=== PATIENT | female | born 1970 | race Caucasian/White ===

== ENCOUNTER 2020-01-07 18:05 | Emergency (ER) | payer OTHER, SELFPAY ==
--- NOTE | ~2020-01-07 | XR_ITS ---
EXAMINATION: XR chest 2V EXAM DATE: 01/07/2020 18:39 INDICATION: Midsternal chest pain radiating to back. History high blood pressure. TECHNIQUE: Frontal and lateral projections of the chest obtained and reviewed. Comparison is made to prior examination from 07/05/2017. FINDINGS: The lungs are clear. There are no pleural effusions. The cardiomediastinal silhouette is within normal limits. There is no pneumothorax suspected. The bones and soft tissues are unremarkab le. IMPRESSION: No acute cardiopulmonary findings. Reviewed, dictated and finalized at location A.
[2020-01-07 18:08] VITALS: BP 138/80; PULSE 98; RESP 18; TEMP 35.8; O2SAT 96
--- NOTE | 2020-01-07 18:10 | ECG_ITS ---
Measurements Intervals [place] Rate: 99 P: -5 AL: 162 QRS: 15 QRSD: 77 T: 38 QT: 334 QTc: 430 Interpretive Statements SINUS RHYTHM LOW QRS VOLTAGE IN PRECORDIAL LEADS BASELINE WANDER- V1 BORDERLINE ECG Electronically Signed On 01-08-2020 7:35:04 CDT by Heath Hurtado D.O.
[2020-01-07 18:24] LABS: Basophils Absolute Auto 0.1 K/mm3 (0.0-0.1); Basophils Percent Auto 0.7 % (0.2-1.2); Eosinophils Absolute Auto 0.2 K/mm3 (0-0.3); Eosinophils Percent Auto 2.1 % (0-4.4); Hemoglobin 13.7 g/dL (12.0-15.0); Immature Granulocyte Absolute 0.03 K/mm3 (0.00-0.031); Immature Granulocyte Percent A 0.3 % (0-0.5); Lymphocytes Absolute Auto 2.65 K/mm3 (0.9-3.2); Lymphocytes Percent Auto 28.3 % (18.3-44.2); Mean Corpuscular HGB Conc 33.4 g/dl (32-36); Mean Corpuscular Hemoglobin 28.5 pg (26-34); Mean Corpuscular Volume 85.2 fl (80-100); Mean Platelet Volume 11.4 fl (7.4-10.4); Monocytes Absolute Auto 0.9 K/mm3 (0.1-0.6); Monocytes Percent Auto 9.6 % (2.6-8.5); Neutrophils Absolute Auto 5.5 K/mm3 (1.3-6.7); Platelet Count Result 207 k/mm3 (150-375); Red Blood Count 4.81 M/mm3 (4.2-5.4); Red Cell Distribution Width 13.1 % (11.5-14.5); White Blood Count 9.4 K/mm3 (4.5-10.0)
[2020-01-07 18:34] LABS: INR 1.1; Prothrombin Time 13.6 Seconds (11.1-14.7)
[2020-01-07 18:35] LABS: Partial Thromboplastin Time 33.7 SECONDS (22.3-36.8)
[2020-01-07 18:36] LABS: Anion Gap 9 mmol/L (8-16); Blood Urea Nitrogen 24 mg/dL (7-17); Calcium 9.3 mg/dL (8.4-10.2); Carbon Dioxide 24 mmol/L (22-30); Chloride 105 mmol/L (98-107); Estimated CRCL calculation 79 ml/min; Estimated Glomerular Filt Rate 59; Glucose 109 mg/dL (65-105); Potassium 3.6 mmol/L (3.4-5.0); Sodium 138 mmol/L (137-145)
[2020-01-07 18:48] LABS: Troponin I < 0.012 ng/mL (0.000-0.034)
[2020-01-07 18:56] VITALS: BP 115/71; PULSE 90; RESP 20; TEMP 37; O2SAT 98
--- NOTE | 2020-01-07 19:15 | ED.CHESTPAIN ---
HPI - Chest Pain General Chief Complaint: Chest Pain Stated Complaint: cp/dizzy Time Seen by Provider: 01/07/20 19:10 History of Present Illness HPI narrative: Intermittent dizziness throughout the day today. Only happens when she is doing things . She says that it is hard to explain it is like she loses the room . This is often associated with sharp stabbing chest pain, SOB, and tingling in her fingers. No fever, cough, nausea, vomiting, diarrhea. Related Data Home Medications Medication Instructions Recorded Confirmed amlodipine 5 mg tablet 5 mg PO DAILY 05/14/19 Allergies Allergy/AdvReac Type Severity Reaction Status Date / Time aspirin Allergy Unknown Unknown Verified 10/01/19 15:00 beef derived (bovine) Allergy Unknown Unknown Verified 10/01/19 15:00 diclofenac Allergy Unknown Kidneys Verified 10/01/19 15:00 shut down gabapentin Allergy Unknown Unknown Verified 10/01/19 15:00 imipramine Allergy Unknown nightmares Verified 10/01/19 15:00 nut - unspecified Allergy Unknown Unknown Verified 10/01/19 15:00 peanut Allergy Unknown hives Verified 10/01/19 15:00 sweet potato Allergy Unknown Unknown Verified 10/01/19 15:00 tomato Allergy Unknown Unknown Verified 10/01/19 15:00 Review of Systems Review of Systems: All systems reviewed & are unremarkable except as noted in HPI and below Constitutional: Constitutional: Denies chills and Denies fever(s) ENT: Reports dizziness Cardiovascular: Cardiovascular: Reports chest pain and Reports rapid heart rate Respiratory: Respiratory: Reports dyspnea Gastrointestinal: Gastrointestinal: Denies abdominal pain, Denies diarrhea, Denies nausea and Denies vomiting Genitourinary: Genitourinary: Denies hematuria and Denies dysuria Musculoskeletal: Musculoskeletal: Denies back pain Neurologic: Reports dizziness, Denies syncope and Denies weakness Psychiatric: Psychiatric: Reports anxiety Endocrine: Endocrine: Denies polydipsia and Denies polyuria [facility] Past Medical History Medical History (Updated 01/07/20 @ 21:59 by Dario Ricardo MD) HTN (hypertension) Obesity (BMI 35.0-39.9 without comorbidity) Social History Social History Smoking status: Never smoker Alcohol intake: never Exam Const: General: no acute distress and alert Nutritional Appearance: obese Orientation/consciousness: patient oriented x3 HENMT: Head: normal to inspection Ears: TM's normal bilaterally and EAC's normal Eyes: Pupils: Equal, round and reactive pupils present EOM: EOMs intact bilaterally Resp: Effort & Inspection: normal respiratory effort Auscultation: clear to auscultation bilaterally Cardio: Rate: regular rate Rhythm: regular rhythm Heart sounds: no murmurs Skin: General skin exam: normal color Neuro: General: patient oriented x3, moves all extremities, no focal motor deficits and CN's II-XI intact bilaterally Speech: normal speech Extrem: General: normal to inspection and no edema Psych: Appearance: grossly normal Mental Status: mental status grossly normal Course Vital Signs Vital signs: Vital Signs Temperature 35.8 C L 01/07/20 18:08 Pulse Rate 98 01/07/20 18:08 Respiratory Rate 18 01/07/20 18:08 Blood Pressure 138/80 01/07/20 18:08 Pulse Oximetry 96 01/07/20 18:08 Temperature 37.0 C 01/07/20 18:56 Pulse Rate 89 01/07/20 22:14 Respiratory Rate 20 01/07/20 22:14 Blood Pressure 160/93 H 01/07/20 22:14 Pulse Oximetry 96 01/07/20 22:14 MDM - Chest Pain MDM Narrative Medical decision making narrative: Feeling better. Walking with stable gait. Medical Records Data Attestation: I reviewed the patient's medical records. Lab Data Attestation: I reviewed the patient's lab results. Result diagrams: 01/07/20 18:18 01/07/20 18:18 Labs: Lab Results 01/07/20 01/07/20 01/07/20 Range/Units 18:18 18:18 18:18 WBC 9.4 (4
[2020-01-07 20:04] VITALS: BP 124/78; PULSE 78; RESP 18; O2SAT 99
[2020-01-07] MEDS: MECLIZINE HCL 25 MG TABLET PO (20:04)
[2020-01-07] MEDS: SODIUM CHLORIDE 0.9% IV 1,000 ML 999 ML IV CONT (20:04)
--- NOTE | 2020-01-07 21:32 | ECG_ITS ---
Measurements Intervals [place] Rate: 90 P: 13 MD: 148 QRS: 20 QRSD: 85 T: 35 QT: 368 QTc: 450 Interpretive Statements SINUS RHYTHM LOW QRS VOLTAGE IN PRECORDIAL LEADS BASELINE ARTIFACT- I, III, AVL BORDERLINE ECG Electronically Signed On 01-10-2020 14:34:14 CDT by Heath Hurtado D.O.
[2020-01-07 22:06] LABS: Troponin I < 0.012 ng/mL (0.000-0.034)
[2020-01-07 22:14] VITALS: BP 160/93; PULSE 89; RESP 20; O2SAT 96
== END 2020-01-07 22:17 | disposition home or self-care (01) ==
PROVIDERS: Emergency Medicine; Emergency Provider Emergency Medicine; PCP Family Medicine
DX: R07.89 Other chest pain (principal); R42 Dizziness and giddiness; I10 Essential (primary) hypertension; E66.01 Morbid (severe) obesity due to excess calories; Z68.41 Body mass index [BMI] 40.0-44.9, adult
CPT/HCPCS: 36415; 71046; 80048; 84484; 85025; 85610; 85730; 93005; 96360; 99284; A9270; J7030

== ENCOUNTER 2020-04-18 13:35 | Outpatient (CLI) | payer OTHER, SELFPAY ==
[2020-04-18 14:58] LABS: Alanine Aminotransferase 23 U/L (4-35); Albumin Level 3.7 g/dL (3.5-5.1); Alkaline Phosphatase 89 U/L (38-126); Anion Gap 7 mmol/L (8-16); Aspartate Amino Transferase 25 U/L (14-36); Bilirubin,Total 0.5 mg/dL (0.2-1.3); Blood Urea Nitrogen 18 mg/dL (7-17); Calcium 8.9 mg/dL (8.4-10.2); Carbon Dioxide 30 mmol/L (22-30); Chloride 100 mmol/L (98-107); Cholesterol 138 mg/dL (0-200); Estimated Glomerular Filt Rate > 60; Glucose 90 mg/dL (65-105); HDL Direct 45 mg/dL; Potassium 4.2 mmol/L (3.4-5.0); Sodium 137 mmol/L (137-145); Triglycerides 87 mg/dL (<150)
[2020-04-18 15:00] LABS: Hemoglobin A1C 5.1 % (<5.7)
[2020-04-18 15:11] LABS: LDL Cholesterol Direct 71 mg/dL
== END 2020-04-18 13:36 | disposition home or self-care (01) ==
PROVIDERS: PCP Family Medicine; Visit Provider Family Medicine
DX: E78.5 Hyperlipidemia, unspecified (principal)
CPT/HCPCS: 36415; 80053; 80061; 83036

== ENCOUNTER 2021-05-04 18:08 | Emergency (ER) | payer OTHER, SELFPAY ==
[2021-05-04 18:17] VITALS: BP 146/89; PULSE 78; RESP 16; TEMP 36.3; O2SAT 100
--- NOTE | 2021-05-04 18:38 | ED.URI ---
HPI - URI/Sore Throat General Chief Complaint: Upper Respiratory Infection Stated Complaint: cold or sinus Time Seen by Provider: 05/04/21 18:27 Source: patient and RN notes reviewed Mode of arrival: ambulatory Limitations: no limitations History of Present Illness HPI Narrative: Patient presents today complaining of a 2-day history of sore throat, slight cough, rhinorrhea, body aches. She does report some shortness of breath with exertion. History of asthma. Denies fever, nausea, vomiting, diarrhea. She has been taking Tylenol with some relief. She has also been using her rescue inhaler more frequently, which does provide some relief as well. MD elicited complaint: cough, sore throat and rhinorrhea Related Data Home Medications Medication Instructions Recorded Confirmed metoprolol tartrate 25 mg tablet 25 mg PO DAILY 07/21/20 04/13/21 rosuvastatin 40 mg tablet 40 mg PO DAILY 07/21/20 04/13/21 Allergies Allergy/AdvReac Type Severity Reaction Status Date / Time aspirin Allergy Unknown Unknown Verified 05/04/21 18:20 beef derived (bovine) Allergy Unknown Unknown Verified 05/04/21 18:20 diclofenac Allergy Unknown Kidneys Verified 05/04/21 18:20 shut down gabapentin Allergy Unknown Unknown Verified 05/04/21 18:20 imipramine Allergy Unknown nightmares Verified 05/04/21 18:20 nut - unspecified Allergy Unknown Unknown Verified 05/04/21 18:20 peanut Allergy Unknown hives Verified 05/04/21 18:20 sweet potato Allergy Unknown Unknown Verified 05/04/21 18:20 tomato Allergy Unknown Unknown Verified 05/04/21 18:20 Review of Systems Review of Systems: CONSTITUTIONAL: Denies fever, chills, or sweats.+ Body aches EYES: Denies visual changes, redness, or discharge. ENT: Denies congestion, or otalgia.+ Rhinorrhea, sore throat CARDIOVASCULAR: Denies chest pain, palpitations, or edema. RESPIRATORY: + Slight cough, shortness of breath with exertion GASTROINTESTINAL: Denies abdominal pain, nausea, vomiting, or diarrhea. GENITOURINARY: Denies dysuria or hematuria. SKIN: Denies rash, itching, or wounds. MUSCULOSKELETAL: Denies back pain, joint pain, or myalgia. NEUROLOGIC: Denies headache, numbness, tingling, or weakness. PSYCH: Denies depression or anxiety. [facility] Past Medical History Medical History Coronary arteriosclerosis in [place] artery no stent due to asa intolerance, using plavix HTN (hypertension) Mixed hyperlipidemia Narcolepsy without cataplexy Obesity (BMI 35.0-39.9 without comorbidity) Surgical History Surgical History Gastric bypass status for obesity Family History Family History Grandparent Family history of malignant neoplasm of breast Father Family history of arthritis Mother Family history of arthritis Other Cerebrovascular accident Diabetes mellitus Family history of allergic disorder Family history of cardiovascular disease Family history of elevated blood lipids Family history of kidney disease Family history of malignant neoplasm Family history of tuberculosis Hypertension Social History Social History Smoking status: Never smoker Second hand tobacco smoke exposure: No Alcohol intake: never Substance use: never Substance use type: does not use Gender identity (if verbalized by the patient): Female Comments At time of signature, I have reviewed and agree with nursing past medical, surgical, social and family history unless otherwise noted. Please see nursing chart for further information. There is no relevant family history pertinent to the presenting complaint Exam Narrative: GENERAL: Well-appearing, well-nourished, and in no acute distress. HEAD: Normocephalic, atraumatic. EYES: EOMI. No redness or drainage. Conjunctivae normal. ENT: Mucous
== END 2021-05-04 19:07 | disposition home or self-care (01) ==
PROVIDERS: Emergency Provider Nurse Practitioner; PCP Family Medicine
DX: J06.9 Acute upper respiratory infection, unspecified (principal); Z20.822 Contact with and (suspected) exposure to COVID-19; I10 Essential (primary) hypertension; E78.2 Mixed hyperlipidemia; G47.419 Narcolepsy without cataplexy; E66.9 Obesity, unspecified; Z68.37 Body mass index [BMI] 37.0-37.9, adult; Z98.84 Bariatric surgery status; I25.10 Atherosclerotic heart disease of native coronary artery without angina pectoris; J45.909 Unspecified asthma, uncomplicated
CPT/HCPCS: 87426; 99213; C9803; G0463

== ENCOUNTER → 2021-05-16 01:27 | Outpatient (CLI) | payer OTHER, SELFPAY ==
[2021-05-16 21:10] LABS: SARS-CoV-2 RNA PCR Negative
== END ==
PROVIDERS: PCP Family Medicine; Visit Provider Family Medicine
DX: R05.9 Cough, unspecified (principal); Z20.822 Contact with and (suspected) exposure to COVID-19
CPT/HCPCS: C9803; U0003; U0005

== ENCOUNTER 2021-11-09 11:52 | Outpatient (CLI) | payer OTHER, SELFPAY ==
[2021-11-09 12:22] LABS: Hematocrit 42.6 % (37.0-47.0); Hemoglobin 13.7 g/dL (12.0-15.0); Mean Corpuscular HGB Conc 32.2 g/dl (32-36); Mean Corpuscular Hemoglobin 27.9 pg (26-34); Mean Corpuscular Volume 86.8 fl (80-100); Mean Platelet Volume 11.1 fl (7.4-10.4); Platelet Count Result 182 k/mm3 (150-375); Red Blood Count 4.91 M/mm3 (4.2-5.4); Red Cell Distribution Width 13.2 % (11.5-14.5)
[2021-11-09 13:09] LABS: Free T4 Free Thyroxine 0.98 ng/mL (0.78-2.19)
[2021-11-09 13:14] LABS: Alanine Aminotransferase 37 U/L (6-35); Alkaline Phosphatase 91 U/L (38-126); Anion Gap 8 mmol/L (8-16); Aspartate Amino Transferase 41 U/L (14-36); Bilirubin,Total 0.3 mg/dL (0.2-1.3); Blood Urea Nitrogen 13 mg/dL (7-17); Calcium 8.6 mg/dL (8.4-10.2); Carbon Dioxide 26 mmol/L (22-30); Chloride 106 mmol/L (98-107); Cholesterol 137 mg/dL (0-200); Estimated Glomerular Filt Rate > 60; Glucose 102 mg/dL (65-110); HDL Direct 58 mg/dL; Potassium 3.9 mmol/L (3.4-5.0); Sodium 140 mmol/L (137-145); Triglycerides 72 mg/dL (<150)
[2021-11-09 13:25] LABS: LDL Cholesterol Direct 46 mg/dL
[2021-11-09 13:48] LABS: Thyroid Stimulating Hormone 0.134 uIU/mL (0.465-4.680)
[2021-11-14 06:55] LABS: Metanephrine, Free <25 pg/mL (<=57); Normetanephrine, Free 40 pg/mL (<=148); Total, Free (MN + NMN) 40 pg/mL (<=205)
== END 2021-11-09 11:53 | disposition home or self-care (01) ==
LOC: ANHLAB 11:54
PROVIDERS: PCP Family Medicine; Visit Provider Internal Medicine Endocrinology, Diabetes & Metabolism
DX: E78.2 Mixed hyperlipidemia (principal); E16.2 Hypoglycemia, unspecified; Z98.84 Bariatric surgery status
CPT/HCPCS: 36415; 80053; 80061; 83835; 84439; 84443; 85027

== ENCOUNTER 2022-02-25 11:12 | Outpatient (CLI) | payer OTHER, SELFPAY ==
[2022-02-25 18:59] LABS: Basophils Percent Auto 0.4 % (0.2-1.2); Eosinophils Absolute Auto 0.1 K/mm3 (0-0.3); Eosinophils Percent Auto 1.5 % (0-4.4); Hematocrit 42.2 % (37.0-47.0); Hemoglobin 13.1 g/dL (12.0-15.0); Immature Granulocyte Absolute 0.02 K/mm3 (0.00-0.031); Immature Granulocyte Percent A 0.3 % (0-0.5); Lymphocytes Percent Auto 28.1 % (18.3-44.2); Mean Corpuscular Hemoglobin 27.9 pg (26-34); Mean Corpuscular Volume 89.8 fl (80-100); Mean Platelet Volume 12.1 fl (7.4-10.4); Monocytes Absolute Auto 0.6 K/mm3 (0.1-0.6); Monocytes Percent Auto 7.9 % (2.6-8.5); Neutrophils Absolute Auto 4.4 K/mm3 (1.3-6.7); Neutrophils Percent Auto 61.8 % (45.5-73.1); Platelet Count Result 161 k/mm3 (150-375); Red Cell Distribution Width 13.2 % (11.5-14.5); White Blood Count 7.1 K/mm3 (4.5-10.0)
[2022-02-25 19:02] LABS: Hemoglobin A1C 5.4 % (<5.7)
[2022-02-25 19:11] LABS: Alanine Aminotransferase 32 U/L (6-35); Alkaline Phosphatase 97 U/L (38-126); Anion Gap 13 mmol/L (8-16); Aspartate Amino Transferase 32 U/L (14-36); Bilirubin,Total 0.3 mg/dL (0.2-1.3); Blood Urea Nitrogen 11 mg/dL (7-17); Calcium 8.7 mg/dL (8.4-10.2); Carbon Dioxide 24 mmol/L (22-30); Chloride 105 mmol/L (98-107); Cholesterol 129 mg/dL (0-200); Estimated Glomerular Filt Rate > 60; Glucose 101 mg/dL (65-110); HDL Direct 54 mg/dL; Potassium 3.6 mmol/L (3.4-5.0); Sodium 142 mmol/L (137-145); Triglycerides 77 mg/dL (<150)
[2022-02-25 19:22] LABS: LDL Cholesterol Direct 57 mg/dL
[2022-02-25 19:36] LABS: Thyroid Stimulating Hormone Reflex 0.319 uIU/mL (0.465-4.68)
[2022-02-25 20:10] LABS: Free T4 Free Thyroxine Reflex 0.92 ng/dL (0.78-2.19)
[2022-02-25 21:36] LABS: Total Triiodothyronine (T3) 1.29 NG/ML (0.97-1.69)
== END 2022-02-25 11:13 | disposition home or self-care (01) ==
LOC: ANHGOSHLAB 11:15
PROVIDERS: PCP Family Medicine; Visit Provider Family Medicine
DX: Z12.39 Encounter for other screening for malignant neoplasm of breast (principal); E78.5 Hyperlipidemia, unspecified
CPT/HCPCS: 36415; 80053; 80061; 83036; 84439; 84443; 84480; 85025

== ENCOUNTER 2022-05-25 11:11 | Outpatient (CLI) | payer OTHER, SELFPAY ==
[2022-05-25 13:13] LABS: Alanine Aminotransferase 30 U/L (6-35); Albumin Level 3.8 g/dL (3.5-5.1); Alkaline Phosphatase 98 U/L (38-126); Anion Gap 5 mmol/L (8-16); Aspartate Amino Transferase 32 U/L (14-36); Bilirubin,Total 0.4 mg/dL (0.2-1.3); Blood Urea Nitrogen 11 mg/dL (7-17); Calcium 8.6 mg/dL (8.4-10.2); Carbon Dioxide 27 mmol/L (22-30); Chloride 107 mmol/L (98-107); Estimated Glomerular Filt Rate > 60; Glucose 95 mg/dL (65-110); Potassium 3.9 mmol/L (3.4-5.0); Sodium 139 mmol/L (137-145)
[2022-05-25 13:39] LABS: Thyroid Stimulating Hormone 0.875 uIU/mL (0.465-4.680)
[2022-05-25 13:49] LABS: Free T4 Free Thyroxine 0.88 ng/mL (0.78-2.19)
[2022-05-29 21:12] LABS: Triiodothyronine T3 Free 3.2 pg/mL (2.3-4.2)
[2022-05-30 14:23] LABS: Thyroid Stimulating Immunoglob <89 % baseline (<140)
== END 2022-05-25 11:12 | disposition home or self-care (01) ==
LOC: ANHLAB 11:12
PROVIDERS: PCP Family Medicine; Visit Provider Internal Medicine Endocrinology, Diabetes & Metabolism
DX: E16.2 Hypoglycemia, unspecified (principal); R74.01 Elevation of levels of liver transaminase levels; E04.9 Nontoxic goiter, unspecified; Z98.84 Bariatric surgery status
CPT/HCPCS: 36415; 80053; 84439; 84443; 84445; 84481

== ENCOUNTER 2022-08-17 09:41 | Outpatient (CLI) | payer OTHER, SELFPAY ==
[2022-08-17 12:11] LABS: Basophils Percent Auto 0.5 % (0.2-1.2); Eosinophils Absolute Auto 0.1 K/mm3 (0-0.3); Eosinophils Percent Auto 1.5 % (0-4.4); Hematocrit 41.3 % (37.0-47.0); Hemoglobin 13.5 g/dL (12.0-15.0); Immature Granulocyte Absolute 0.02 K/mm3 (0.00-0.031); Immature Granulocyte Percent A 0.3 % (0-0.5); Lymphocytes Percent Auto 29.1 % (18.3-44.2); Mean Corpuscular HGB Conc 32.7 g/dl (32-36); Mean Corpuscular Hemoglobin 27.5 pg (26-34); Mean Corpuscular Volume 84.1 fl (80-100); Mean Platelet Volume 11.8 fl (7.4-10.4); Monocytes Absolute Auto 0.4 K/mm3 (0.1-0.6); Monocytes Percent Auto 7.5 % (2.6-8.5); Neutrophils Absolute Auto 3.6 K/mm3 (1.3-6.7); Neutrophils Percent Auto 61.1 % (45.5-73.1); Platelet Count Result 176 k/mm3 (150-375); Red Blood Count 4.91 M/mm3 (4.2-5.4); Red Cell Distribution Width 13.5 % (11.5-14.5); White Blood Count 5.8 K/mm3 (4.5-10.0)
[2022-08-17 12:16] LABS: Alanine Aminotransferase 26 U/L (6-35); Albumin Level 3.9 g/dL (3.5-5.1); Alkaline Phosphatase 97 U/L (38-126); Anion Gap 3 mmol/L (8-16); Aspartate Amino Transferase 31 U/L (14-36); Bilirubin,Total 0.5 mg/dL (0.2-1.3); Blood Urea Nitrogen 11 mg/dL (7-17); Calcium 8.5 mg/dL (8.4-10.2); Carbon Dioxide 27 mmol/L (22-30); Chloride 106 mmol/L (98-107); Estimated Glomerular Filt Rate > 60; Glucose 93 mg/dL (65-110); Magnesium 2.1 mg/dL (1.6-2.3); Potassium 3.9 mmol/L (3.4-5.0); Sodium 136 mmol/L (137-145)
[2022-08-17 12:23] LABS: Prealbumin 17.1 mg/dL (17.6-36.0)
[2022-08-17 12:50] LABS: Iron 63 ug/dL (37-170)
[2022-08-17 12:59] LABS: Percent Iron Saturation 17 % (20-50)
[2022-08-17 14:23] LABS: Parathyroid Intact 72.7 pg/mL (7.5-53.5)
[2022-08-17 14:28] LABS: Vitamin D 25 Hydroxy 21.3 ng/mL
[2022-08-20 16:23] LABS: Zinc 63 mcg/dL (60-130)
[2022-08-22 11:10] LABS: Alpha-Tocopherol 6.3 mg/L (5.7-19.9); Beta-Gamma Tocopherol 1.5 mg/L (<=4.3); Vitamin A 27 mcg/dL (38-98)
[2022-08-25 23:11] LABS: Vitamin K1 150 pg/mL (130-1500)
[2022-08-27 04:41] LABS: Vitamin B1 9 nmol/L (8-30)
== END 2022-08-17 09:42 | disposition home or self-care (01) ==
PROVIDERS: PCP Family Medicine
DX: E56.9 Vitamin deficiency, unspecified (principal); E61.8 Deficiency of other specified nutrient elements; E55.9 Vitamin D deficiency, unspecified; Z98.84 Bariatric surgery status; E66.9 Obesity, unspecified; Z68.38 Body mass index [BMI] 38.0-38.9, adult; E53.9 Vitamin B deficiency, unspecified; K90.9 Intestinal malabsorption, unspecified
CPT/HCPCS: 36415; 80053; 82306; 82525; 82607; 82728; 82747; 83540; 83550; 83735; 83970; 84134; 84425; 84446; 84590; 84597; 84630; 85025

== ENCOUNTER 2022-08-29 13:01 | Outpatient (CLI) | payer OTHER, SELFPAY ==
--- NOTE | ~2022-08-29 | CT_ITS ---
CT of the Abdomen: Indication: Left renal mass Technique: 2.5 mm axial scans were obtained through the abdomen prior to and following intravenous a dministration of 100 cc of Omnipaque 350. Dose reduction technique was used on this scan by utilizing automated exposure control and iterative reconstruction technique. The dose-length product (DLP) was 1591.25 mGy-cm. COMPARISON: CT dated 08/29/2017 Findings: Scans through the lung bases are unremarkable. The liver, spleen, pancreas, gallbladder, adrenals and kidneys are within normal limits. No evidence of aortic aneurysm. No lymphadenopathy. There is evidence of prior bariatric surgery. Visualized bowel loops are otherwise unremarkable. No a scites. No lymphadenopathy seen. Impression: No left renal mass identified on this exam. No significant abnormality seen. Status post bariatric surgery. Reviewed, dictated and finalized at [facility]. Impression: No left renal mass identified on this exam. No significant abnormality seen. Status post bariatric surgery.
== END 2022-08-29 13:02 ==
LOC: GOSHIMG 13:02
PROVIDERS: PCP Family Medicine; Visit Provider Family Medicine
DX: N28.89 Other specified disorders of kidney and ureter (principal)
CPT/HCPCS: 74170; Q9967

== ENCOUNTER 2023-02-13 16:49 | Emergency (ER) | payer OTHER, SELFPAY ==
[2023-02-13 17:11] VITALS: BP 163/96; PULSE 111; RESP 18; TEMP 37.4; O2SAT 99
--- NOTE | 2023-02-13 17:43 | ED.URI ---
HPI - URI/Sore Throat General Chief Complaint: Upper Respiratory Infection Stated Complaint: cold symptoms Time Seen by Provider: 02/13/23 17:43 Source: patient and RN notes reviewed Mode of arrival: ambulatory Limitations: no limitations History of Present Illness HPI Narrative: 52-year-old female presented for complaint of headache, body aches, sinus pressure/congestion, cough, fever/chills. Onset 4 days. endorses sore throat started at the onset but it resolved within 12 hours. She is taking NyQuil. She denies known sick contacts. Denies sob, wheezing, n/v/d. MD elicited complaint: cough Related Data Home Medications Medication Instructions Recorded Confirmed rosuvastatin 40 mg tablet 40 mg PO DAILY 07/21/20 02/13/23 Allergies Allergy/AdvReac Type Severity Reaction Status Date / Time aspirin Allergy Unknown Unknown Verified 10/11/22 09:31 beef derived (bovine) Allergy Unknown Unknown Verified 10/11/22 09:31 diclofenac Allergy Unknown Kidneys Verified 10/11/22 09:31 shut down gabapentin Allergy Unknown Unknown Verified 10/11/22 09:31 imipramine Allergy Unknown nightmares Verified 10/11/22 09:31 nut - unspecified Allergy Unknown Unknown Verified 10/11/22 09:31 peanut Allergy Unknown hives Verified 10/11/22 09:31 sweet potato Allergy Unknown Unknown Verified 10/11/22 09:31 tomato Allergy Unknown Unknown Verified 10/11/22 09:31 Review of Systems Review of Systems: CONSTITUTIONAL: Endorses malaise, chills, sweats, fever EYES: Denies visual changes, redness, or discharge ENT: Reports rhinorrhea, congestion, denies sinus pain, otalgia, sore throat CARDIOVASCULAR: Denies chest pain, palpitations, edema RESPIRATORY: Reports cough, post nasal drainage. Denies dyspnea GASTROINTESTINAL: Denies abdominal pain, nausea, vomiting, diarrhea SKIN: Denies rash or itching MUSCULOSKELETAL: Endorses myalgia PMFSH Past Medical History Medical History Coronary arteriosclerosis in [place] artery no stent due to asa intolerance, using plavix HTN (hypertension) Mixed hyperlipidemia Narcolepsy without cataplexy Obesity (BMI 35.0-39.9 without comorbidity) Surgical History Surgical History Gastric bypass status for obesity Family History Family History Grandparent Family history of malignant neoplasm of breast Father Family history of arthritis Mother Family history of arthritis Other Cerebrovascular accident Diabetes mellitus Family history of allergic disorder Family history of cardiovascular disease Family history of elevated blood lipids Family history of kidney disease Family history of malignant neoplasm Family history of tuberculosis Hypertension Social History Social History Smoking status: Never smoker Second hand tobacco smoke exposure: No Alcohol intake: never Substance use: never Substance use type: does not use Lack of Transportation: No Lack of Food: Never True Current Housing: I Have Housing Concerned About Future Housing: No Difficulty Paying Gas/Electric Bills: No Difficulty Paying for Meds: No Currently Unemployed: No Education: Associate Degree Difficulty w/ Childcare or Family Care: No Gender identity (if verbalized by the patient): Female Exam Narrative: GENERAL: mildly Ill-appearing, nontoxic no acute distress. HEAD: Normocephalic EYES: PERRLA, conjunctivae clear ENT: Mucous membranes moist. Nasal congestion. TMs pearly crowe with dull light reflex bilaterally; no tragal tenderness. Oropharynx not erythematous, without lesions or exudate, no drooling, no hoarseness, no trismus, uvula midline. No tripod positioning, muffled voice, soft palate or pharyngeal wall bulging NECK: Supple. No lymphadenopathy CHEST: Clear to aus
== END 2023-02-13 18:32 | disposition home or self-care (01) ==
PROVIDERS: Emergency Provider Nurse Practitioner Family; PCP Family Medicine
DX: B34.9 Viral infection, unspecified (principal); Z20.822 Contact with and (suspected) exposure to COVID-19; I25.10 Atherosclerotic heart disease of native coronary artery without angina pectoris; I10 Essential (primary) hypertension; E78.2 Mixed hyperlipidemia; G47.419 Narcolepsy without cataplexy; E66.9 Obesity, unspecified; Z68.41 Body mass index [BMI] 40.0-44.9, adult; Z98.84 Bariatric surgery status
CPT/HCPCS: 87426; 99213; C9803; G0463

== ENCOUNTER 2023-06-13 11:57 | Outpatient (CLI) | payer OTHER, SELFPAY ==
--- NOTE | ~2023-06-13 | XR_ITS ---
Right Knee Technique: AP, lateral, and sunrise views were obtained. Clinical History: Pain Findings: No fracture or dislocation is seen. Osseous alignment is anatomic. Joint spaces are preserv ed without degenerative or erosive change. Soft tissues are unremarkable. No joint effusion is seen. Impression: Unremarkable right knee radiographs. Reviewed, dictated and finalized at location . BILITY REPRESENTATIVE Impression: Unremarkable right knee radiographs.
== END 2023-06-13 11:58 ==
PROVIDERS: PCP Family Medicine; Visit Provider Emergency Medicine
DX: M25.561 Pain in right knee (principal)
CPT/HCPCS: 73562

== ENCOUNTER 2023-08-27 14:15 | Outpatient (CLI) | payer OTHER, SELFPAY ==
[2023-08-27 16:40] LABS: Alanine Aminotransferase 33 U/L (6-35); Albumin Level 4.4 g/dL (3.5-5.1); Alkaline Phosphatase 121 U/L (38-126); Anion Gap 5 mmol/L (4-12); Aspartate Amino Transferase 95 U/L (14-36); Bilirubin,Total 0.6 mg/dL (0.2-1.3); Blood Urea Nitrogen 14 mg/dL (7-17); Calcium 9.1 mg/dL (8.4-10.2); Carbon Dioxide 29 mmol/L (22-30); Chloride 104 mmol/L (98-107); Estimated Glomerular Filt Rate > 60; Glucose 96 mg/dL (65-110); Potassium 3.8 mmol/L (3.4-5.0); Sodium 138 mmol/L (137-145)
[2023-08-27 16:52] LABS: Parathyroid Intact 74.5 pg/mL (7.5-53.5)
[2023-08-27 17:08] LABS: Vitamin D 25 Hydroxy 69.5 ng/mL
== END 2023-08-27 14:16 | disposition home or self-care (01) ==
LOC: ANHWCLAB 14:17
PROVIDERS: PCP Family Medicine; Visit Provider Internal Medicine Endocrinology, Diabetes & Metabolism
DX: R79.89 Other specified abnormal findings of blood chemistry (principal); E16.2 Hypoglycemia, unspecified
CPT/HCPCS: 36415; 80053; 82306; 83970

== ENCOUNTER 2023-10-03 08:31 | Outpatient (CLI) | payer OTHER, SELFPAY ==
--- NOTE | ~2023-10-03 | MM_ITS ---
EXAMINATION: MM screening delia BI w ziggy HISTORY: Screening TECHNIQUE: Craniocaudal and mediolateral oblique 3-D tomosynthesis images were obtained and synthetic 2-D images were generated. CAD analysis was submitted and interpreted. COMPARISON: 08/15/2017 BREAST PARENCHYMAL COMPOSITION: Not dense: There are scattered areas of fibroglandular density. FINDINGS: There is no evidence of suspicious mass, calcification, or architectural distortion to sugg est malignancy in either breast. There has been no suspicious interval change. IMPRESSION: 1. No mammographic evidence of malignancy. 2. Recommend routine screening mammography in one year. BI-RADS Category 1: Negative Reviewed, dictated and finalized at location B.
== END 2023-10-03 08:32 | disposition home or self-care (01) ==
LOC: ANHIMG 08:34
PROVIDERS: PCP Family Medicine; Visit Provider Family Medicine
DX: Z12.31 Encounter for screening mammogram for malignant neoplasm of breast (principal)
CPT/HCPCS: 77063; 77067

== ENCOUNTER 2024-01-09 00:23 | Day surgery (SDC) | payer OTHER, SELFPAY ==
[2023-12-30 14:49] VITALS: BMI 42.3
--- NOTE | 2023-12-30 15:46 | PC.NURSE ---
Spoke with patient regarding medication plavix. Pt. verbalizes understanding that the last dose of plavix is to be taken on 01/04/2024 and the Endoscopist will instruct them when to restart after the procedure.
[2024-01-09 06:46] VITALS: BP 136/87; PULSE 105; RESP 20; TEMP 36; O2SAT 100
[2024-01-09] MEDS: LACTATED RINGERS 1,000 ML 150 ML IV CONT (06:55)
--- NOTE | 2024-01-09 07:54 | PM.HPGS ---
History of Present Illness History of Present Illness Consent: Risks, benefits, and alternatives have been discussed and questions answered. Patient agrees to proceed with procedure. Chief complaint: neoplasm screening Narrative: Cee Villasenor is a 53 year old female here for screening colonoscopy, last one about 6 years ago Review of Systems Review of Systems: All systems reviewed & are unremarkable except as noted in HPI and below PMFSH Past Medical History Medical History Coronary arteriosclerosis in [place] artery no stent due to asa intolerance, using plavix HTN (hypertension) Mixed hyperlipidemia Narcolepsy without cataplexy Obesity (BMI 35.0-39.9 without comorbidity) Surgical History Surgical History Gastric bypass status for obesity Family History Family History Grandparent Family history of malignant neoplasm of breast Father Family history of arthritis Mother Family history of arthritis Other Cerebrovascular accident Diabetes mellitus Family history of allergic disorder Family history of cardiovascular disease Family history of elevated blood lipids Family history of kidney disease Family history of malignant neoplasm Family history of tuberculosis Hypertension Social History Social History Smoking status: Never smoker Second hand tobacco smoke exposure: No Alcohol intake: current Substance use: never Substance use type: does not use Do You Feel Safe in your Home?: Yes Lack of Transportation: No Lack of Food: Never True Current Housing: I Have Housing Concerned About Future Housing: No Difficulty Paying Gas/Electric Bills: No Difficulty Paying for Meds: No Currently Unemployed: No Education: Associate Degree Difficulty w/ Childcare or Family Care: No Living arrangements: with family Gender identity (if verbalized by the patient): Female Spiritual care concerns: No Meds Home Medications and Allergies Home Medications Medication Instructions Recorded Confirmed Type rosuvastatin 40 mg tablet 40 mg PO HS 07/21/20 01/09/24 History clopidogrel 75 mg tablet See Rx Instructions .Route 09/26/21 12/30/23 Rx .COMPLEX #90 tabs glucose 4 gram chewable tablet 4 g PO Q15M PRN hypoglycemia #30 03/28/22 01/09/24 Rx (Dex4 Glucose) tabs albuterol sulfate 90 mcg/actuation 2 puff inhalation Q4-6H PRN 04/12/22 01/09/24 Rx aerosol inhaler (ProAir HFA) shortness of breath or wheezing #8.5 grams estradiol 0.01% (0.1 mg/gram) 1 g vaginal DAILY #42.5 grams 12/16/22 01/09/24 Rx vaginal cream (Estrace) sertraline 100 mg tablet 100 mg PO BID #180 tabs 04/11/23 01/09/24 Rx armodafinil 150 mg tablet 150 mg PO QAM PRN Hypersomnia #30 05/21/23 01/09/24 Rx tabs glucagon 3 mg/actuation nasal See Rx Instructions .Route 08/19/23 01/09/24 Rx spray (Baqsimi) .COMPLEX PRN hypoglycemia #1 ea blood-glucose sensor (Dexcom G7 #10 ea 08/27/23 01/09/24 Rx Sensor device) cholecalciferol (vitamin D3) 1,250 1,250 mcg PO WEEKLY #14 tabs 08/27/23 01/09/24 Rx mcg (50,000 unit) tablet aripiprazole 10 mg tablet See Rx Instructions .Route 11/12/23 01/09/24 Rx .COMPLEX #90 tabs amitriptyline 10 mg tablet 10 mg PO QHS #90 tabs 12/30/23 01/09/24 Rx montelukast 10 mg tablet 10 mg PO HS 12/30/23 01/09/24 History triamcinolone acetonide 0.1 % 1 applic topical TID PRN Rash 12/30/23 01/09/24 History topical cream Allergies Allergy/AdvReac Type Severity Reaction Status Date / Time diclofenac Allergy Severe Kidneys Verified 01/09/24 06:43 shut down gabapentin Allergy Severe KIDNEY Verified 01/09/24 06:43 ISSUES aspirin Allergy Intermediate Fever Verified 01/09/24 06:43 imipramine Allergy Intermediate nightmares Verified
--- NOTE | 2024-01-09 08:00 | WPDANESEPPF ---
Anes - Initial Pre Proc Eval Procedure: Operation Date: 01/09/24 08:00 Proposed Procedures p Screening Colonoscopy - Donald Nguyen MD Date/Time: 01/09/24 08:00 Surgeon: Donald Nguyen MD Pre Op Diagnosis: neoplasm screening Patient Data Age: 53 Gender: F Height: 1.63 m Weight: 102.4 kg Last Vital Signs Temp 96.8 F L 01/09/24 06:46 Pulse 105 H 01/09/24 06:46 Resp 20 01/09/24 06:46 BP 136/87 01/09/24 06:46 Pulse Ox 100 01/09/24 06:46 O2 Del Method Room Air 01/09/24 06:46 Allergies Allergy/AdvReac Type Severity Reaction Status Date / Time diclofenac Allergy Severe Kidneys Verified 01/09/24 06:43 shut down gabapentin Allergy Severe KIDNEY Verified 01/09/24 06:43 ISSUES aspirin Allergy Intermediate Fever Verified 01/09/24 06:43 imipramine Allergy Intermediate nightmares Verified 01/09/24 06:43 tomato Allergy Intermediate Hives Verified 01/09/24 06:43 nut - unspecified AdvReac Intermediate Gastrointestinal Verified 01/09/24 06:43 Upset peanut AdvReac Intermediate Gastrointestinal Verified 01/09/24 06:43 Upset sweet potato AdvReac Intermediate Gastrointestinal Verified 01/09/24 06:43 Upset Home Medications Medication Instructions Recorded Confirmed Type rosuvastatin 40 mg tablet 40 mg PO HS 07/21/20 01/09/24 History clopidogrel 75 mg tablet See Rx Instructions .Route 09/26/21 12/30/23 Rx .COMPLEX #90 tabs glucose 4 gram chewable tablet 4 g PO Q15M PRN hypoglycemia #30 03/28/22 01/09/24 Rx (Dex4 Glucose) tabs albuterol sulfate 90 mcg/actuation 2 puff inhalation Q4-6H PRN 04/12/22 01/09/24 Rx aerosol inhaler (ProAir HFA) shortness of breath or wheezing #8.5 grams estradiol 0.01% (0.1 mg/gram) 1 g vaginal DAILY #42.5 grams 12/16/22 01/09/24 Rx vaginal cream (Estrace) sertraline 100 mg tablet 100 mg PO BID #180 tabs 04/11/23 01/09/24 Rx armodafinil 150 mg tablet 150 mg PO QAM PRN Hypersomnia #30 05/21/23 01/09/24 Rx tabs glucagon 3 mg/actuation nasal See Rx Instructions .Route 08/19/23 01/09/24 Rx spray (Baqsimi) .COMPLEX PRN hypoglycemia #1 ea blood-glucose sensor (Dexcom G7 #10 ea 08/27/23 01/09/24 Rx Sensor device) cholecalciferol (vitamin D3) 1,250 1,250 mcg PO WEEKLY #14 tabs 08/27/23 01/09/24 Rx mcg (50,000 unit) tablet aripiprazole 10 mg tablet See Rx Instructions .Route 11/12/23 01/09/24 Rx .COMPLEX #90 tabs amitriptyline 10 mg tablet 10 mg PO QHS #90 tabs 12/30/23 01/09/24 Rx montelukast 10 mg tablet 10 mg PO HS 12/30/23 01/09/24 History triamcinolone acetonide 0.1 % 1 applic topical TID PRN Rash 12/30/23 01/09/24 History topical cream Patient hx anesthesia problems: none Family hx anesthesia problems: none Results Review: All pre-operative results and documents have been reviewed as part of the pre-operative evaluation. [facility] Past Medical History Medical History Coronary arteriosclerosis in [place] artery no stent due to asa intolerance, using plavix HTN (hypertension) Mixed hyperlipidemia Narcolepsy without cataplexy Obesity (BMI 35.0-39.9 without comorbidity) Surgical History Surgical History Gastric bypass status for obesity Family History Family History Grandparent Family history of malignant neoplasm of breast Father Family history of arthritis Mother Family history of arthritis Other Cerebrovascular accident Diabetes mellitus Family history of allergic disorder Family history of cardiovascular disease Family history of elevated blood lipids Family history of kidney disease Family history of malignant neoplasm Family history of tuberculosis Hypertension Social History Social History Smoking status: Never smoker Second hand toba
[2024-01-09 08:16] VITALS: BP 133/85; PULSE 83; RESP 19; O2SAT 100
[2024-01-09 08:26] VITALS: BP 133/95; PULSE 86; RESP 18; O2SAT 100
[2024-01-09 08:36] VITALS: BP 140/98; PULSE 83; RESP 22; O2SAT 100
== END 2024-01-09 08:50 | disposition home or self-care (01) ==
PROVIDERS: PCP Family Medicine; Visit Provider Internal Medicine Gastroenterology
PROC: 0DJD8ZZ Inspection of Lower Intestinal Tract, Via Natural or Artificial Opening Endoscopic (ICD-10-PCS; CPT 45378; principal; 2024-01-09 08:00)
DX: Z12.11 Encounter for screening for malignant neoplasm of colon (principal); D12.4 Benign neoplasm of descending colon; K57.30 Diverticulosis of large intestine without perforation or abscess without bleeding; K64.8 Other hemorrhoids; Z79.02 Long term (current) use of antithrombotics/antiplatelets; Z79.51 Long term (current) use of inhaled steroids; I25.10 Atherosclerotic heart disease of native coronary artery without angina pectoris; I10 Essential (primary) hypertension; E78.2 Mixed hyperlipidemia; G47.419 Narcolepsy without cataplexy; Z98.84 Bariatric surgery status; E66.9 Obesity, unspecified; Z68.38 Body mass index [BMI] 38.0-38.9, adult
CPT/HCPCS: 45385; 88305; J2704; J7120

== ENCOUNTER 2024-06-08 16:09 | Emergency (ER) | payer OTHER, SELFPAY ==
--- OUTSIDE RECORDS SUMMARY | 2024-06-08 16:26 | XMS_ITS | Referral Summary ---
Author Organization [facility] [address] Address [address] [place] [address] Care Team Providers Care Mounter Smoking Pipe Name Role Phone Bacilio Cardona MD Primary Care Provider [phone] Allergies Active Allergy Reactions Criticality Noted Date Comments Aspirin Anaphylaxis,Nausea only,Swelling High Reaction: Nausea, Swelling, Anaphylaxis, Imipramine Hcl Unknown 08/04/2012 Nut - Unspecified Nausea Only 06/20/2014 Other reaction(s): Skin Reaction Peanut Hives Medium 04/19/2009 Tomato Hives Medium 04/19/2009 Medications albuterol HFA (PROVENTIL HFA) 90 mcg/actuation inhaler inhale 2 puff by inhalation route every 4 - 6 hours as needed 0 Inhaler 0 6 Active SUMAtriptan (IMITREX) 50 mg tablet take 2 tablet by oral route once with fluids as early as possible after the onset of a migraine attack;may repeat after 2 hours if headache returns, not to exceed 200mgin 24hrs 0 0 6 Active Additional Information Patient taking differently:50 mgAs needed, Reported on 10/28/2022 armodafiniL (NUVIGIL) 150 mg tablet PRN Active ARIPiprazole (ABILIFY) 10 mg tablet Take by mouth nightly. 1 8 Active triamcinolone (KENALOG) 0.1 % cream APPLY THIN COAT TO AFFECTED AREA TWICE A DAY 1 8 Active montelukast (SINGULAIR) 10 mg tablet Take 1 tablet (10 mg total) by mouth nightly Active EPINEPHrine (EPIPEN) 0.15 mg/0.3 mL injection syringe Inject 0.3 mL (0.15 mg total) into the muscle as instructed as needed Active sertraline (ZOLOFT) 100 mg tablet Take 2 tablets (200 mg total) by mouth nightly 9 Active cholecalciferol (VITAMIN D-3) 50,000 unit capsule TAKE 1 CAPSULE BY MOUTH WEEKLY 3 Active rosuvastatin (CRESTOR) 40 mg tablet TAKE 1 TABLET BY MOUTH EVERY DAY 90 tablet 3 3 Active blood-glucose sensor (Dexcom G7 Sensor) device Active metoprolol XL (TOPROL-XL) 25 mg extended release tabletIndicatio ns:Tachycardia Take 1 tablet (25 mg total) by mouth daily 90 tablet 3 4 11/14/19 25 Active clopidogreL (PLAVIX) 75 mg tabletIndicatio ns:Coronary artery calcification,A bnormal stress test TAKE 1 TABLET BY MOUTH EVERY DAY 90 tablet 4 Active Active Problems Problem Noted Date Diagnosed Date Hypoglycemia 11/03/2023 Assessment & Plan (11/03/2023 4:13 PM CDT): She is having post gastric bypass hypoglycemia, 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 The likelihood of another etiology, such as insulinoma, is exceedingly low. We discussed that the best strategy to avoid hypoglycemia is to consume small, frequent meals throughout the day with overall low carbohydrate content. She should also include a protein and fat with each meal. She is consuming very high amounts of simple sugar each day, causing glucose spikes and then subsequent hypoglycemia. I have referred her to Gladys Ortiz in nutrition to discuss a formal dietary regimen to avoid hypoglycemia. I would NOT recommend taking acarbose at this time and would certainly NOT recommend restarting Ozempic, as this would further exacerbate her hypoglycemia. H/O: hypertension 10/28/2022 S/P bariatric surgery 10/17/2021 Class 3 obesity 10/17/2021 Weight loss 10/23/2020 Class 2 severe obesity due t o excess calories with serious comorbidity in adult 10/23/2020 H/O syncope 10/23/2020 CHANCE (dyspnea on exertion) 04/18/2018 Coronary artery calcification 04/18/2018 Memory difficulties 10/26/2017 Balance problem 10/26/2017 Diastolic dysfunction without heart failure 09/27 Seizure disorder (CMS/HCC) 07/17/2017 Assessment & Plan (07/17/2017 3:11 PM CDT): Pt says no sz since a teenager. Aspirin allergy 07/17/2017 Assessment & Plan (07/17/2017 3:00 PM CDT): Anaphylaxis Syncope and collapse 07/17/2017 Assessment & Plan (07/17/2017 3:19 PM CDT): As above. Abnormal stress test 07/16/2017 Assessment & Plan (07/17/2017 3:10 PM CDT): The patient has coronary calcifications previously demonstrated, and a change in her stress test which now shows a small mild area of apical ischemia. She certainly likely has some degree of CAD, but overall is asymptomatic except when she has these episodes of flushing and tachycardia, when she may have some chest discomfort. For now I think we should treat her medically, although ultimately we may proceed with cardiac catheterization depending on evaluation of the above. Unfortunately she is ASA-allergic; Plavix is an alternative. I would like to add a statin, but she tells me her neurologist Dr. Frausto DC'd her statin as she wanted to DC any medication which might interfere with the pts cognitive capacity. Elevated norepinephrine level 07/16/2017 Assessment & Plan (07/17/2017 3:30 PM CDT): Elevated dopamine, norepinephrine, and total catecholamine levels. R/O pheochromocytoma Tachycardia 07/16/2017 Assessment & Plan (07/17/2017 3:23 PM CDT): Patient presents with spells as described above of tachycardia, sweating, etc which ultimately result in syncope. Very strange situation. Does not appear to be POTS as this conglomeration of sx can occur in bed.. Pheochromocytoma is high on the differential, particularly since she had elevated norepinephrine and dopamine levels, although these may be elevated because of her tricyclic antidepressant imipramine. Other possibilities: could be menopausal hot flashes, carcinoid (unlikely, no diarrhea), mast cell disease, idiopathic flushing, atypical seizures or other things that cause a hyperadrenergic state. Further eval for possible recurrent sz disorder was recommended by Dr. Frausto, though declined by the patient. Although she likely does have CAD, I think it is unlikely that CAD/angina is the cause of all of these symptoms. Syncope is unlikely to be related to any ventricular arrhythmias, though we should evaluate further with long-term monitoring. If nothing is found by testing, psychogenic causes are also possible. Hypercholesteremia 07/16/2017 Assessment & Plan (07/17/2017 3:11 PM CDT): 07/16/2017 POC lipids: Total cholesterol 226, HDL 47, TG 131, LDL 152, glucose 127 Statin is indicated. See above. 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 Morbid obesity with BMI of 45.0-49.9, adult 06/27 Resolved Problems Problem Noted Date Diagnosed Date Resolved Date Morbid obesity 04/18/2018 04/18/2018 Traumatic encephalopathy 07/17/2017 Social History Tobacco Use Types Packs/Day Years Used Date Smoking Tobacco: Never Smokeless Tobacco: Never Tobacco Cessation:Counseling Given: Not Answered Comments Unknown Sex and Gender Information Value Date Recorded Sex Assigned at Not on file Legal Sex Female 4:09 AM [employer] Gender Identity Not on file Sexual Orientation Not on file Last Filed Vital Signs Vital Sign Reading Time Taken Comments Blood Pressure 135/101 12/12/2023 9:06 AM CDT Pulse 101 11/14/2023 10:05 AM CDT Temperature - - Respiratory Rate - - Oxygen Saturation 96% 11/14/2023 10:05 AM CDT Inhaled Oxygen Concentration - - Weight 108 kg (238 lb) 11/14/2023 10:05 AM CDT Height 165.1 cm (5' 5 ) 11/14/2023 10:05 AM CDT Body Mass Index 39.61 11/14/2023 10:05 AM CDT Plan of Treatment Not on file Insurance [facility] CHOICE PLUS [facility] HMO/PPO Address: [address] [address] [place] [address] [facility] HMO [facility] O [facility] Care Teams Mounter Smoking Pipe Relationship Specialty Start Date End Date Bacilio Cardona MD PCP - General 06/26/17
--- OUTSIDE RECORDS SUMMARY | 2024-06-08 16:26 | XMS_ITS | Patient Health Summary ---
Author Organization [facility] Address [address] [place] [address] Care Team Providers Care Career Development Counselor Name Role Phone Bacilio Cardona MD Primary Care Provider [phone] Note [address] [facility],non-owned Affiliates and Associated Physician Practices is amultiple site organization consisting of ambulatory clinics and hospital sitesin [place], [place], [place] and [place]. This disclosure is being madepursuant to the Care Everywhere program and may not contain all information available regarding this patient. Last updated 18.[facility] Allergies * Aspirin(Anaphylaxis,Nausea and/or Vomiting,Swelling) -High Criticality * Imipramine Hcl(Other,Unknown) * Peanut-Derived(Other) -Medium Criticality * Tomato(Other) -Medium Criticality Medications * Be aware that medications may not be up to date on this document. Alwaysverify current medications with the patient. * albuterol HFA (Proventil; Ventolin; Proair) 108 (90 Base) MCG/ACT inhaler (Started 01/11/2016) Inhale 2 (two) puffs by mouth every 4 hours as needed for Shortness of Breath * ARIPiprazole (ABILIFY) 10 MG tablet(Started 04/14/2019) Take 1 (one) tablet by mouth at bedtime * montelukast (SINGULAIR) 10 MG tablet(Started 05/24/2019) Take 1 (one) tablet by mouth every evening * pantoprazole EC (PROTONIX) 40 MG tablet(Started 09/05/2014) Take 40 mg by mouth at bedtime * sertraline (ZOLOFT) 100 MG tablet(Started 04/14/2019) Take 2 (two) tablets by mouth at bedtime * triamcinolone acetonide (KENALOG) 0.1 % cream(Started 12/05/2017) Apply 1 Dose to affected area 2 times daily as needed (rash) * rosuvastatin (CRESTOR) 40 MG tablet(Started 05/27/2020) Take 1 (one) tablet by mouth at bedtime * SUMAtriptan (IMITREX) 100 MG tablet(Started 07/03/2020) Take 1 (one) tablet by mouth once as needed for Migraine * clopidogrel (plaVIX) 75 MG tablet Take 1 (one) tablet by mouth once daily * amitriptyline (ELAVIL) 10 MG tablet(Started 01/15/2021) * metoprolol succinate XL 24hr (TOPROL XL) 50 MG tablet(Started 03/25/2021) Take 1 tablet by mouth once daily * acarbose (Precose) 25 MG tablet(Started 04/30/2022) 1 TAB 3 X DAILY- TAKE IT WITH 1ST BITE OF YOUR MEAL W/ BREAKFAST, LUNCH AND DINNER * Continuous Blood Gluc Cobol Engineer ([employer] [place] [employer]) JEF(Started 11/02/2021) as directed Active Problems Problem Noted Date Diagnosed Date S/P gastric bypass 07/11/2020 Social History Tobacco Use Types Packs/Day Years Used Date Smoking Tobacco: Never Smokeless Tobacco: Never Alcohol Use Standard Drinks/Week Comments Never 0 (1 standard drink = 0.6 oz pur e alcohol) AUDIT-C Answer Date Recorded Frequency of Alcohol Consumption Never 06/18/2019 Average Number of Drinks Not on file 020 Frequency of Binge Drinking Not on file 05/30 Sex and Gender Information Value Date Recorded Sex Assigned at Female 03/13/2021 8:47 AM ELECTRICAL AND RADIO AIRCRAFT MECHANIC Gender Identity Female 03/13/2021 8:47 AM ELECTRICAL AND RADIO AIRCRAFT MECHANIC Sexual Orientation Not on file Last Filed Vital Signs Vital Sign Reading Time Taken Comments Blood Pressure 140/90 07/26/2022 11:48 AM CDT Pulse 104 07/26/2022 11:48 AM CDT Temperature 36.1 C (97 F) 07/26/2022 11:48 AM CDT Respiratory Rate 20 07/23/2021 12:2 4 PM CDT Oxygen Saturation 99% 07/26/2022 11: 48 AM CDT Inhaled Oxygen Concentration - - Weight 113.1 kg (249 lb 6.4 oz) 023 11:48 AM CDT Height 165.1 cm (5' 5 ) 07/26/2022 11:4 8 AM CDT Body Mass Index 41.5 07/26/2022 11:48 AM CDT Procedures * FL UGI W SM BOWEL FOLLOW THRU(Performed 09/06/2022) Performed for Bariatric surgery status, Intestinal malabsorption, unspecified type (HCC), Diarrhea,unspecified type, Reactive hypoglycemia * LAB(Performed 08/17/2022) * LAB(Performed 08/17/2022) * US ABDOMEN LIMITED(Performed 08/16/2022) Performed for Bariatric surgery status, Intestinal malabsorption, unspecified type (HCC), Diarrhea,unspecified type, Reactive hypoglycemia * PTH INTACT(Performed 04/06/2021) Performed for H/O gastric bypass, Dietary counseling and surveillance, Other specified intestinal malabsorption (HCC), Vitamin deficiency, History of morbid obesity * VITAMIN A(Performed 04/06/2021) Performed for H/O gastric bypass, Dietary counseling and surveillance, Other specified intestinal malabsorption (HCC), Vitamin deficiency, History of morbid obesity * VITAMIN B1(Performed 04/06/2021) Performed for H/O gastric bypass, Dietary counseling and surveillance, Other specified intestinal malabsorption (HCC), Vitamin deficiency, History of morbid obesity * VITAMIN B12(Performed 04/06/2021) Performed for H/O gastric bypass, Dietary counseling and surveillance, Other specified intestinal malabsorption (HCC), Vitamin deficiency, History of morbid obesity * VITAMIN E(Performed 04/06/2021) Performed for H/O gastric bypass, Dietary counseling and surveillance, Other specified intestinal malabsorption (HCC), Vitamin deficiency, History of morbid obesity * VITAMIN K1(Performed 04/06/2021) Performed for H/O gastric bypass, Dietary counseling and surveillance, Other specified intestinal malabsorption (HCC), Vitamin deficiency, History of morbid obesity * ZINC BLOOD(Performed 04/06/2021) Performed for H/O gastric bypass, Dietary counseling and surveillance, Other specified intestinal malabsorption (HCC), Vitamin deficiency, History of morbid obesity * PREALBUMIN(Performed 04/06/2021) Performed for H/O gastric bypass, Dietary counseling and surveillance, Other specified intestinal malabsorption (HCC), Vitamin deficiency, History of morbid obesity * MAGNESIUM BLOOD(Performed 04/06/2021) Performed for H/O gastric bypass, Dietary counseling and surveillance, Other specified intestinal malabsorption (HCC), Vitamin deficiency, History of morbid obesity * FERRITIN(Performed 04/06/2021) Performed for H/O gastric bypass, Dietary counseling and surveillance, Other specified intestinal malabsorption (HCC), Vitamin deficiency, History of morbid obesity * COPPER BLOOD(Performed 04/06/2021) Performed for H/O gastric bypass, Dietary counseling and surveillance, Other specified intestinal malabsorption (HCC), Vitamin deficiency, History of morbid obesity * COMPREHENSIVE METABOLIC PANEL(Performed 04/06/2021) Performed for H/O gastric bypass, Dietary counseling and surveillance, Other specified intestinal malabsorption (HCC), Vitamin deficiency, History of morbid obesity * CBC W/O DIFFERENTIAL(Performed 04/06/2021) Performed for H/O gastric bypass, Dietary counseling and surveillance, Other specified intestinal malabsorption (HCC), Vitamin deficiency, History of morbid obesity * VITAMIN D 25-HYDROXY(Performed 04/06/2021) Performed for H/O gastric bypass, Dietary counseling and surveillance, Other specified intestinal malabsorption (HCC), Vitamin deficiency, History of morbid obesity * IRON + TIBC PANEL(Performed 04/06/2021) Performed for H/O gastric bypass, Dietary counseling and surveillance, Other specified intestinal malabsorption (HCC), Vitamin deficiency, History of morbid obesity * FOLATE(Performed 04/06/2021) Performed for H/O gastric bypass, Dietary counseling and surveillance, Other specified intestinal malabsorption (HCC), Vitamin deficiency, History of morbid obesity * FL UGI SERIES(Performed 09/18/2020) Performed for S/P bariatric surgery, Intractable vomiting with nausea, unspecified vomiting type * HCG URINE QUAL POCT NOTIFICATION(Performed 08/18/2020) Performed for S/P gastric bypass * AL ED EGD FLEX TRANSORAL DX(Performed 08/18/2020) * HCG URINE QUALITATIVE - POCT (IP) INTERFACED(Performed 08/18/2020) * CARDIAC RHYTHM STRIP ORDER(Performed 07/14/2020) * GLUCOSE - POINT OF CARE(Performed 07/13/2020) * CBC W AUTO DIFFERENTIAL(Performed 07/13/2020) * BASIC METABOLIC PANEL (CALCIUM TOTAL)(Performed 07/13/2020) * GLUCOSE - POINT OF CARE(Performed 07/12/2020) * GLUCOSE - POINT OF CARE(Performed 07/12/2020) * GLUCOSE - POINT OF CARE(Performed 07/12/2020) * CBC W/O DIFFERENTIAL(Performed 07/12/2020) * FL UGI SERIES(Performed 07/12/2020) Performed for S/P gastric bypass * BASIC METABOLIC PANEL (CALCIUM TOTAL)(Performed 07/12/2020) * TROPONIN I(Performed 07/12/2020) * B-TYPE NATRIURETIC PEPTIDE(Performed 07/12/2020) * VITAMIN D 25-HYDROXY(Performed 07/12/2020) * CBC W AUTO DIFFERENTIAL(Performed 07/12/2020) * BASIC METABOLIC PANEL (CALCIUM TOTAL)(Performed 07/12/2020) * TROPONIN I(Performed 07/11/2020) * GLUCOSE - POINT OF CARE(Performed 07/11/2020) * GLUCOSE - POINT OF CARE(Performed 07/11/2020) * ENDOTRACHEAL TUBE NOTE(Performed 07/11/2020) * LAPAROSCOPIC REPAIR PARAESOPHAGEAL/HIATAL HERNIA(Performed 07/11/2020) * LAPAROSCOPIC GASTRIC BYPASS(Performed 07/11/2020) * GLUCOSE - POINT OF CARE(Performed 07/11/2020) * POTASSIUM BLOOD(Performed 07/11/2020) * HCG URINE QUALITATIVE(Performed 07/11/2020) Performed for Preop examination * SARS-COV-2 (COVID-19) IN HOUSE(Performed 07/08/2020) Performed for Preop examination * SARS-COV2 (COVID-19) PANEL (STL)(Performed 07/08/2020) Performed for Preop examination * VITAMIN B12(Performed 06/16/2020) Performed for Preop examination * VITAMIN B1(Performed 06/16/2020) Performed for Preop examination * COMPREHENSIVE METABOLIC PANEL(Performed 06/16/2020) Performed for Preop examination * CBC W AUTO DIFFERENTIAL(Performed 06/16/2020) Performed for Preop examination * HCG URINE QUAL POCT NOTIFICATION(Performed 01/17/2020) Performed for Pre-op exam * HELICOBACTER PYLORI UREASE (STL)(Performed 01/17/2020) Performed for Diagnosis unknown * AL ED EGD FLEX TRANSORAL DX(Performed 01/17/2020) * HCG URINE QUALITATIVE - POCT (IP) INTERFACED(Performed 01/17/2020) * EKG 12-LEAD(Performed 12/30/2019) * COMPREHENSIVE METABOLIC PANEL(Performed 12/11/2019) Performed for Preop testing * FL UGI W AIR CONTRAST(Performed 12/03/2019) Performed for Gastroesophageal reflux disease without esophagitis, Morbid obesity (HCC), BMI 45.0-49.9, adult (HCC) * GROSS + MICRO EXAM(Performed 10/02/1996) Results * FL UGI W SM BOWEL FOLLOW THRU (09/06/2022 10:03 AM CDT) Anatomical Region Laterality Modality Abdomen Radiographic Pili ging 09/06/2022 11:2 9 AM CDT Impressions 09/06/2022 11:34 AM CDT IMPRESSION: 1. Status post Parag-en-Y gastric bypass surgery. No appreciable hiatal hernia, reflux or gastric outlet obstruction. 2. Normal-appearing small bowel and transit time to the colon within one hour. > Interpreting Provider: Cesar Morrell DO on 09/06/2022 11:34 AM Narrative 09/06/2022 11:34 AM CDT PROCEDURE: FL UGI W SM BOWEL FOLLOW THRU DATE/TIME OF EXAM: 09/06/2022 10:10 AM CLINICAL INFORMATION: History of gastric bypass surgery 2 years ago with vomiting and loose stools. Postprandial abdominal pain. COMPARISON: Upper GI series performed 09/18/2020. FINDINGS: Esophagus distends normally. No fixed narrowing, mucosal irregularity or annular constricting mass. No generalized esophageal dilation or focal esophageal diverticulum. Normal GE junction. No significant hiatal hernia or gastroesophageal reflux was identified. Unremarkable appearance of the gastric pouch. No contrast extravasation. Normal emptying through the gastrojejunostomy into the Parag loop. In the OBRIEN position, there was normal primary and secondary peristalsis of the esophagus without tertiary contractions or esophageal spasm. Minor proximal escape within the esophagus. Unremarkable small bowel. No dilated bowel loops are fold thickening. Probable jejunojejunostomy within the right abdomen. Contrast reaches the colon at 1 hour. No delayed transit time. Terminal ileum is unremarkable. FLUOROSCOPY DOSE: 20.9 mGy Reference air kerma (ka,r). 430 images were obtained in total including video format. 1 minute 47 seconds of fluoroscopy time was utilized. Procedure Note Cesar Morrell DO - 09/06/2022 PROCEDURE: FL UGI W SM BOWEL FOLLOW THRU DATE/TIME OF EXAM: 09/06/2022 10:10 AM CLINICAL INFORMATION: History of gastric bypass surgery 2 years ago with vomiting and loose stools. Postprandial abdominal pain. COMPARISON: Upper GI series performed 09/18/2020. FINDINGS: Esophagus distends normally. No fixed narrowing, mucosal irregularity or annular constricting mass. No generalized esophageal dilation or focal esophageal diverticulum. Normal GE junction. No significant hiatalhernia or gastroesophageal reflux was identified. Unremarkable appearance of the gastric pouch. No contrast extravasation. Normal emptying through the gastrojejunostomy into the Parag loop. In the OBRIEN position, there was normal primary and secondary peristalsisof the esophagus without tertiary contractions or esophageal spasm. Minor proximal escape within the esophagus. Unremarkable small bowel. No dilated bowel loops are fold thickening. Probable jejunojejunostomy within the right abdomen. Contrast reaches the colon at 1 hour. No delayed transit time. Terminal ileum is unremarkable. FLUOROSCOPY DOSE: 20.9 mGy Reference air kerma (ka,r). 430 images were obtained in total including video format. 1 minute 47 seconds of fluoroscopy time was utilized. IMPRESSION: 1. Status post Parag-en-Y gastric bypass surgery. No appreciable hiatal hernia, reflux or gastric outlet obstruction. 2. Normal-appearing small bowel and transit time to the colon within one hour. > Interpreting Provider: Cesar Morrell DO on 09/06/2022 11:34 AM Gladys Knight SUPERVISOR DOCK-PRECISION THREAD GRINDER OPERATOR FLUOROSCO PY ORDERABLES * LAB (08/17/2022) Only the most recent of2 resultswithin the time period is included. Gladys Knight SUPERVISOR DOCK-PRECISION THREAD GRINDER OPERATOR SCANNING ONLY * US ABDOMEN LIMITED (08/16/2022 9:09 AM CDT) Anatomical Region Laterality Modality Abdomen Ultrasound 08/16/2022 9:45 AM CDT Impressions 08/16/2022 11:48 AM CDT IMPRESSION: 1. Focal, well-circumscribed, hypoechoic lesion in the anterior right renal cortex measuring 3.4 x 2.9 x 2.1 cm. Recommend further evaluation with CT abdomen and pelvis with contrast. Edited by Keren Short on 08/16/2022 9:55 AM > Interpreting Provider: Pia Peterson MD on 08/16/2022 11:48 AM Narrative 08/16/2022 11:48 AM CDT PROCEDURE: US ABDOMEN LIMITED DATE/TIME OF EXAM: 08/16/2022 9:09 AM CLINICAL INFORMATION: None relevant/not provided if blank. INDICATION: Z98.84: Bariatric surgery status K90.9: Intestinal malabsorption, unspecified R19.7: Diarrhea, unspecified E16.1: Other hypoglycemia COMPARISON: None. TECHNIQUE: Real-time ultrasound of the upper abdomen with DICOM image capture performed by ultrasound technologist sonographer. FINDINGS: The hepatic echotexture is homogeneous without evidence of a focal mass. The liver is normal in size and contour. There is no intrahepatic ductal dilatation. The pancreas is partially visible and portions of the body and head appear normal. The gallbladder appears normal without evidence of gallstones, gallbladder wall thickening or pericholecystic fluid. The common bile duct is normal in caliber. There is no evidence of ascites or fluid in Olivarez's pouch. The right kidney measures 11.0 cm. No right-sided hydronephrosis seen. There is a focal, well-circumscribed, hypoechoic lesion in the anterior right renal cortex with central increased echogenicity, measuring 3.4 x 2.9 x 2.1 cm. There is an anechoic right renal lower pole cyst, measuring 1.3 x 0.9 x 1.2 cm. Procedure Note Pia Peterson MD - 08/16/2022 PROCEDURE: US ABDOMEN LIMITED DATE/TIME OF EXAM: 08/16/2022 9:09 AM CLINICAL INFORMATION: None relevant/not provided if blank. INDICATION: Z98.84: Bariatric surgery status K90.9: Intestinal malabsorption, unspecified R19.7: Diarrhea, unspecified E16.1: Other hypoglycemia COMPARISON: None. TECHNIQUE: Real-time ultrasound of the upper abdomen with DICOM image capture performed by ultrasound technologist sonographer. FINDINGS: The hepatic echotexture is homogeneous without evidence of a focal mass. The liver is normal in size and contour. There is no intrahepatic ductal dilatation. The pancreas is partially visible and portions of the bodyand head appear normal. The gallbladder appears normal without evidence of gallstones,gallbladder wall thickening or pericholecystic fluid. The common bile duct is normalin caliber. There is no evidence of ascites or fluid in Olivarez's pouch. The right kidney measures 11.0 cm. No right-sided hydronephrosis seen. There is a focal, well-circumscribed, hypoechoic lesion in the anterior right renal cortex with central increased echogenicity, measuring 3.4 x2.9 x 2.1 cm. There is an anechoic right renal lower pole cyst, measuring 1.3x 0.9 x 1.2 cm. IMPRESSION: 1. Focal, well-circumscribed, hypoechoic lesion in the anterior rightrenal cortex measuring 3.4 x 2.9 x 2.1 cm. Recommend further evaluation withCT abdomen and pelvis with contrast. Edited by Keren Short on 08/16/2022 9:55 AM > Interpreting Provider: Pia Peterson MD on 08/16/2022 11:48 AM Gladys Knight SUPERVISOR [facility] US ORDERA BLES * (ABNORMAL) VITAMIN K1 (04/06/2021 9:53 AM ELECTRICAL AND RADIO AIRCRAFT MECHANIC) [facility] Vitamin K1 0.07(L) 0.10 - 2.20 ng/mL [facility] INSURANCE BILL Blood BLOOD SPECIMEN / Unknown 04/06/2021 9:53 AM ELECTRICAL AND [employer] AIRCRAFT MECHANIC 04/06/2021 Narrative [facility] INSURANCE BILL - 04/13/2021 11:10 AM ELECTRICAL AND RADIO AIRCRAFT MECHANIC Test(s) 529182-Ohppxpl K1 was developed and its performance characteristics determined by [employer]. It has not been cleared or approved by the Food and Drug Administration. Resulting Agency Comment Lab Testing performed at: [address] [id number] Olivia Doyle SUPERVISOR [facility] LAB - CHEMISTRY O RDERABLES [facility] INSURANCE BILL [address] [place] [address] * (ABNORMAL) ZINC BLOOD (04/06/2021 9:53 AM ELECTRICAL AND RADIO AIRCRAFT MECHANIC) Zinc, Plasma or Serum 43(L) 44 - 115 ug/dL [facility] Comment:Detection Limit = 5 Blood BLOOD SPECIMEN / Unknown 04/06/2021 9:53 AM ELECTRICAL AND RADIO AIRCRAFT MECHANIC 04/06/2021 Narrative [facility] - 04/10/2021 7:09 AM ELECTRICAL AND RADIO AIRCRAFT MECHANIC Test(s) 887139-Hpylsq, Serum or Plasma; 434751-Xflx, Plasma or Serum was developed and its performance characteristics determined by [facility]. It has not been cleared or approved by the Food and Drug Administration. Resulting Agency Comment Lab Testing performed at: [address] [phone] Olivia Doyle APRN-PRECISION THREAD GRINDER OPERATOR LAB - CHEMISTRY O RDERABLES Performing Organization Address [facility] de Phone Number [facility] INSURANCE BILL [address] [place] [address] * VITAMIN A (04/06/2021 9:53 AM ELECTRICAL AND RADIO AIRCRAFT MECHANIC) Vitamin A 20.7 20.1 - 62.0 ug/dL [facility] INSURANCE BILL Comment: Reference intervals for vitamin A determined from [facility]. Individuals with vitamin A less than 20 ug/dL are considered vitamin A deficient and those with serum concentrations less than 10 ug/dL are considered severely deficient. . This test was developed and its performance characteristics determined by [employer]. It has not been cleared or approved by the Food and Drug Administration. Blood BLOOD SPECIMEN / Unknown 04/06/2021 9:53 AM ELECTRICAL AND RADIO AIRCRAFT MECHANIC 04/06/2021 Narrative [facility] - 04/11/2021 3:08 PM ELECTRICAL AND RADIO AIRCRAFT MECHANIC Test(s) 767696-Ssredjy E(Alpha Tocopherol); 078859- Vitamin E(Gamma Tocopherol) was developed and its performance characteristics determined by [employer]. It has not been cleared or approved by the Food and Drug Administration. Resulting Agency Comment Lab Testing performed at: [address] [id number] Olivia Doyle APRN-PRECISION THREAD GRINDER OPERATOR LAB - CHEMISTRY O RDERABLES Performing Organization Address [facility] Co de Phone Number [facility] [address] [place] [address] * (ABNORMAL) VITAMIN E (04/06/2021 9:53 AM ELECTRICAL AND RADIO AIRCRAFT MECHANIC) Vitamin E Alpha Tocopherol 5.7(L) 7.0 - 25.1 mg/L [facility] Vitamin E Gamma Tocopherol 1.6 0.5 - 5.5 mg/L [facility] Comment: Reference intervals for alpha and gamma-tocopherol determined from National Health and Nutrition Examination Survey, 9370-3129. Individuals with alpha-tocopherol levels less than 5.0 mg/L are considered vitamin E deficient. Blood BLOOD SPECIMEN / Unknown 04/06/2021 9:53 AM ELECTRICAL AND RADIO AIRCRAFT MECHANIC 04/06/2021 Narrative [facility] - 04/11/2021 3:08 PM ELECTRICAL AND RADIO AIRCRAFT MECHANIC Test(s) 700520-Yxjnaks E(Alpha Tocopherol); 107485- Vitamin E(Gamma Tocopherol) was developed and its performance characteristics determined by [employer]. It has not been cleared or approved by the Food and Drug Administration. Resulting Agency Comment Lab Testing performed at: [address] [phone] Olivia Doyle APRN-PRECISION THREAD GRINDER OPERATOR LAB - CHEMISTRY O RDERABLES [facility] INSURANCE BILL [address] [place] [address] * VITAMIN B1 (04/06/2021 9:53 AM ELECTRICAL AND RADIO AIRCRAFT MECHANIC) Only the most recent of2 resultswithin the time period is included. Vitamin B1 Whole Blood 119.7 66.5 - 200.0 nmol/L [facility] INSURANCE BILL Blood BLOOD SPECIMEN / Unknown 04/06/2021 9:53 AM ELECTRICAL AND RADIO AIRCRAFT MECHANIC 04/06/2021 Narrative [facility] INSURANCE BILL - 04/11/2021 11:06 PM ELECTRICAL AND RADIO AIRCRAFT MECHANIC Test(s) 276911-Egj. B1, Whole Blood was developed and its performance characteristics determined by [employer]. It has not been cleared or approved by the Food and Drug Administration. Resulting Agency Comment Lab Testing performed at: [address] [id number] Olivia Jenniffer Doyle [facility] - CHEMISTRY O RDERABLES [facility] INS[facility] [address] [place] [address] * PTH INTACT (04/06/2021 9:53 AM ELECTRICAL AND RADIO AIRCRAFT MECHANIC) Pathologist [facility] PTH Intact 25 15 - 65 pg/mL [facility] INSURANCE BILL Blood BLOOD SPECIMEN / Unknown 04/06/2021 9:53 AM ELECTRICAL AND RADIO AIRCRAFT MECHANIC 04/06/2021 Narrative Resulting Agency Comment Lab Testing performed at: [facility] [address] [facility] [id number] Olivia Abad Vivek SUPERVISOR [facility] LAB - CHEMISTRY O RDERABLES Performing Organization Address [facility] Co de Phone Number [facility] [address] [place] [address] * (ABNORMAL) COPPER BLOOD (04/06/2021 9:53 AM ELECTRICAL AND RADIO AIRCRAFT MECHANIC) Pathologist [facility] Copper 58(L) 80 - 158 ug/dL [facility] INS[facility] Comment:Detection Limit = 5 Blood BLOOD SPECIMEN / Unknown 04/06/2021 9:53 AM ELECTRICAL AND RADIO AIRCRAFT MECHANIC 04/06/2021 Narrative [facility] INSURANCE BILL - 04/10/2021 7:09 AM ELECTRICAL AND RADIO AIRCRAFT MECHANIC Test(s) 129035-Saodqb, Serum or Plasma; 214094-Nyzb, Plasma or Serum was developed and its performance characteristics determined by [employer]. It has not been cleared or approved by the Food and Drug Administration. Resulting Agency Comment Lab Testing performed at: [facility] [id number] Olivia Jenniffer Doyle [facility] LAB - CHEMISTRY O RDERABLES Performing Organization Address City/[facility] Co de Phone Number [facility] [address] [place] [address] * (ABNORMAL) CBC W/O DIFFERENTIAL (04/06/2021 9:53 AM ELECTRICAL AND [employer]IO [employer] MECHANIC) Only the most recent of2 resultswithin the time period is included. Pathologist [facility] WBC 5.2 3.4 - 10.8 x10E3/uL [facility] INSURANCE BILL RBC 4.55 3.77 - 5.28 x10E6/uL [facility] INSURANCE BILL Hemoglobin 12.6 11.1 - 15.9 g/dL [facility] INSURANCE BILL Hematocrit 40.2 34.0 - 46.6 % [facility] INSURANCE BILL MCV 88 79 - 97 fL [facility] INSURANCE BILL MCH 27.7 26.6 - 33.0 pg [facility] INSURANCE BILL MCHC 31.3(L) 31.5 - 35.7 g/dL [facility] INSURANCE BILL RDW 13.2 11.7 - 15.4 % [facility] INSURANCE BILL Platelet Count 153 150 - 450 x10E3/uL [facility] INSURANCE BILL nRBC NOT NEEDED [facility] INSURANCE BILL Comment:Ancillary determined the test is not needed. Blood BLOOD SPECIMEN / Unknown 04/06/2021 9:53 AM ELECT[employer]ICAL AND [employer] MECHANIC 04/06/2021 Narrative Resulting Agency Comment Lab Testing performed at: [facility] [address] [facility] [phone] Olivia Doyle APRN-PRECISION THREAD GRINDER OPERATOR LAB - HEMATOLOGY ORDERABLES [facility] INSURANCE BILL [address] [place] [address] * (ABNORMAL) COMPREHENSIVE METABOLIC PANEL (04/06/2021 9:53 AM ELECTRICAL AND [employer] MECHANIC) Only the most recent of3 resultswithin the time period is included. Glucose 60(L) 65 - 99 mg/dL [facility] INSURANCE BILL BUN 13 6 - 24 mg/dL [facility] INSURANCE BILL Creatinine 0.91 0.57 - 1.00 mg/dL [facility] INSURANCE BILL eGFR by MDRD 74 >59 mL/min/1. 73 [facility] INSURANCE BILL eGFR by MDRD 85 >59 mL/min/1. 73 [facility] INSURANCE BILL Comment: In accordance with recommendations from the NKF-ASN Task force, [facility] is in the process of updating its eGFR calculation to the 2020 CKD-EPI creatinine equation that estimates kidney function without a race variable. BUN/Creatinine Ratio 14 9 - 23 [facility] INSURANCE BILL Sodium 144 134 - 144 mmol/L [facility] INSURANCE BILL Potassium 3.8 3.5 - 5.2 mmol/L [facility] INSURANCE BILL Chloride 109(H) 96 - 106 mmol/L [facility] INSURANCE BILL CO2 23 20 - 29 mmol/L [facility] INSURANCE BILL Calcium 8.7 8.7 - 10.2 mg/dL [facility] INSURANCE BILL Protein Total 5.7(L) 6.0 - 8.5 g/dL [facility] INSURANCE BILL Albumin 3.5(L) 3.8 - 4.8 g/dL [facility] INSURANCE BILL Globulin Total 2.2 1.5 - 4.5 g/dL [facility] INSURANCE BILL Albumin/Globulin Ratio 1.6 1.2 - 2.2 [facility] INSURANCE BILL Bilirubin Total 0.2 0.0 - 1.2 mg/dL [facility] INSURANCE BILL Alkaline Phosphatase 89 44 - 121 IU/L [facility] INSURANCE BILL Comment:Please note refere nce interval change AST 24 0 - 40 IU/L [facility] INSURANCE BILL ALT 21 0 - 32 IU/L [facility] INSURANCE BILL Blood BLOOD SPECIMEN / Unknown 04/06/2021 9:53 AM ELECTRICAL AND [employer] MECHANIC 04/06/2021 Narrative Resulting Agency Comment Lab Testing performed at: [facility] [address] [facility] [phone] Olivia Doyle APRN-PRECISION THREAD GRINDER OPERATOR LAB - CHEMISTRY O RDERABLES [facility] INSURANCE BILL [address] [place] [address] * PREALBUMIN (04/06/2021 9:53 AM ELECTRICAL AND RADIO AIR[employer]FT MECHANIC) Prealbumin 13 12 - 34 mg/dL [facility] INSURANCE BILL Blood BLOOD SPECIMEN / Unknown 04/06/2021 9:53 AM ELECTRICAL AND [employer]IO [employer]FT MECHANIC 04/06/2021 Narrative Resulting Agency Comment Lab Testing performed at: [facility] [employer] [place] [address] [facility] [phone] Olivia Doyle SUPERVISOR DOCK-PRECISION THREAD GRINDER OPERATOR LAB - CHEMISTRY O RDERABLES [facility] INSURANCE BILL [address] [place] [address] * MAGNESIUM BLOOD (04/06/2021 9:53 AM ELECTRICAL AND RADIO AIR[employer]FT MECHANIC) Magnesium 1.9 1.6 - 2.3 mg/dL [facility] INSURANCE BILL Blood BLOOD SPECIMEN / Unknown 04/06/2021 9:53 AM ELECTRICAL AND [employer]IO AIR[employer]FT MECHANIC 04/06/2021 Narrative Resulting Agency Comment Lab Testing performed at: [facility] [address] [facility] [phone] Olivia Doyle APRN-PRECISION THREAD GRINDER OPERATOR LAB - CHEMISTRY O RDERABLES [facility] INSURANCE BILL [address] [place] [address] * VITAMIN B12 (04/06/2021 9:53 AM ELECTRICAL AND RADIO AIR[employer]FT MECHANIC) Only the most recent of2 resultswithin the time period is included. Vitamin B12 345 232 - 1,245 pg/mL [facility] INSURANCE BILL Blood BLOOD SPECIMEN / Unknown 04/06/2021 9:53 AM ELECTRICAL AND RADIO AIR[employer]FT MECHANIC 04/06/2021 Narrative Resulting Agency Comment Lab Testing performed at: [facility] [address] [facility] [phone] Olivia Doyle APRN-PRECISION THREAD GRINDER OPERATOR LAB - CHEMISTRY O RDERABLES [facility] INSURANCE BILL [address] [place] [address] * FERRITIN (04/06/2021 9:53 AM ELECTRICAL AND RADIO AIR[employer]FT MECHANIC) Ferritin 52 15 - 150 ng/mL [facility] INSURANCE BILL Blood BLOOD SPECIMEN / Unknown 04/06/2021 9:53 AM ELECTRICAL AND RADIO AIRCRAFT MECHANIC 04/06/2021 Narrative Resulting Agency Comment Lab Testing performed at: [facility] [address] [facility] [phone] Olivia Doyle APRN-PRECISION THREAD GRINDER OPERATOR LAB - CHEMISTRY O RDERABLES [facility] INSURANCE BILL [address] [place] [address] * (ABNORMAL) VITAMIN D 25-HYDROXY (04/06/2021 9:52 AM ELECTRICAL AND RADIO AIR[employer]FT MECHANIC) Only the most recent of2 resultswithin the time period is included. Vitamin D, 25 Hydroxy 28.0(L) 30.0 - 100.0 ng/mL [facility] INSURANCE BILL Comment: Vitamin D deficiency has been defined by the [place] of [employer] and an Endocrine Society practice guideline as a level of serum 25-OH vitamin D less than 20 ng/mL (1,2). The Endocrine Society went on to further define vitamin D insufficiency as a level between 21 and 29 ng/mL (2). 1. IOM ([place] of [employer]). 2010. Dietary reference intakes for calcium and D. [place]: The National Academies Press. 2. Ras MF, Miguel WORKMAN, Sherri JACOBSEN, et al. Evaluation, treatment, and prevention of vitamin D deficiency: an Endocrine Society clinical practice guideline. JCEM. 2010; 96(7):1911-30. Blood BLOOD SPECIMEN / Unknown 04/06/2021 9:52 AM ELECTRICAL AND RADIO AIRCRAFT MECHANIC 04/06/2021 Narrative Resulting Agency Comment Lab Testing performed at: [facility] [phone] Olivia ELMORE LAB - CHEMISTRY O RDERABLES Performing Organization Address City/[facility]/ZIP Co de Phone Number [facility] INSURANCE BILL [address] [place] [address] * IRON + TIBC PANEL (04/06/2021 9:52 AM ELECTRICAL AND RADIO AIR[employer]FT MECHANIC) TIBC 254 250 - 450 ug/dL [facility] INSURANCE BILL UIBC 193 131 - 425 ug/dL [facility] INSURANCE BILL Iron 61 27 - 159 ug/dL [facility] INSURANCE BILL Iron Saturation 24 15 - 55 % [facility] INSURANCE BILL Blood BLOOD SPECIMEN / Unknown 04/06/2021 9:52 AM ELECTRICAL AND RADIO AIRCRAFT MECHANIC 04/06/2021 Narrative Resulting Agency Comment Lab Testing performed at: [facility] [place] [address] [place] [phone] Olivia WHARTONPRECISION THREAD GRINDER OPERATOR LAB - CHEMISTRY O RDERABLES [facility] INSURANCE BILL [address] [place] [address] * FOLATE (04/06/2021 9:52 AM ELECTRICAL AND RADIO AIRCRAFT MECHANIC) Folate 4.4 >3.0 ng/mL [facility] INSURANCE BILL Comment: A serum folate concentration of less than 3.1 ng/mL is considered to represent clinical deficiency. Blood BLOOD SPECIMEN / Unknown 04/06/2021 9:52 AM ELECTRICAL AND RADIO AIR[employer]FT MECHANIC 04/06/2021 Narrative Resulting Agency Comment Lab Testing performed at: [facility] [address] [facility] [phone] Olivia Doyle APRN-PRECISION THREAD GRINDER OPERATOR LAB - CHEMISTRY O RDERABLES [facility] INSURANCE BILL [address] [place] [address] * FL UGI SERIES (09/18/2020 12:03 PM CDT) Only the most recent of2 resultswithin the time period is included. Anatomical Region Laterality Modality Abdomen Radiographic Pili ging 09/18/2020 4:38 PM CDT Impressions 09/18/2020 4:39 PM CDT No evidence of leak or obstruction. *Reading Radiologist: Charles Robles on 09/18/2020 at 4:39 PM Narrative 09/18/2020 4:39 PM CDT Limited Upper GI after Gastric Bypass Indication: Morbid obesity, gastric surgery, nausea and vomiting Findings: Fluoroscopy of the gastric remnant was performed following ingestion of oral contrast media. There is no evidence of leak. There is prompt emptying into the small bowel. Total Fluoro Time = 40 seconds, no spot fluoroscopic imaging was obtained as cine' fluoroscopy was utilized with cine' fluoroscopy images saved in video format. Procedure Note Charles Robles MD - 09/18/2020 Limited Upper GI after Gastric Bypass Indication: Morbid obesity, gastric surgery, nausea and vomiting Findings: Fluoroscopy of the gastric remnant was performed following ingestion of oral contrast media. There is no evidence of leak. There is prompt emptying into the small bowel. Total Fluoro Time = 40 seconds, no spot fluoroscopic imaging was obtained as cine' fluoroscopy was utilized with cine' fluoroscopy images saved in video format. IMPRESSION No evidence of leak or obstruction. *Reading Radiologist: Charles Robles on 09/18/2020 at 4:39 PM Trenton Stephens MD FLUOROSCOPY ORDERABL ES * HCG URINE QUAL POCT NOTIFICATION (08/18/2020 11:30 AM CDT) Only the most recent of2 resultswithin the time period is included. Comment Notification Label Only - See Separate Report 08/18/2020 11:30 AM CDT [facility] Urine URINE / Unknown 1 10:04 AM CDT Trenton Stephens MD LAB - URINALYSIS ORD ERABLES Performing Organization Address [facility] Co de Phone Number [facility] [address] [place], [place] [id number] * HCG URINE QUALITATIVE - POCT (IP) INTERFACED (08/18/2020 10:11 AM CDT) Only the most recent of2 resultswithin the time period is included. Pathologist [facility] HCG Qual Urine Negative Negative 08/18/2020 10:17 AM CDT [facility] Urine URINE / Unknown 08/18/2020 1 0:11 AM CDT 08/18/2020 10:17 AM CDT Trenton Stephens MD LAB - POINT OF CARE ORDERABLES Performing Organization Address City/[facility] Co de Phone Number [facility] [address] [place] [address] * CARDIAC RHYTHM STRIP ORDER (07/14/2020 10:42 PM CDT) Narrative 07/14/2020 10:42 PM CDT Ordered by an unspecified provider. Scanned Document CARDIAC SERVICES ORD ERABLES * GLUCOSE - POINT OF CARE (07/13/2020 6:08 AM CDT) Only the most recent of7 resultswithin the time period is included. Pathologist [facility] Glucose WB/POC 81 70 - 106 mg/dL 07/13/2020 6:14 AM CDT [facility] Specimen Type Arterial/C apillary 07/13/2020 6:14 AM CDT [facility] Blood BLOOD SPECIMEN / Unknown 07/13/2020 6:08 AM CDT 07/13/2020 6:14 AM CDT Trenton Stephens MD LAB - POINT OF CARE ORDERABLES [facility] [address] [place] [address] * CBC W AUTO DIFFERENTIAL (07/13/2020 4:06 AM CDT) Only the most recent of3 resultswithin the time period is included. WBC 7.7 4.4 - 10.7 x10E9/L 07/13/2020 4:25 AM CDT [facility] WBC Corrected 07/13/2020 4:25 AM CDT [facility] RBC 4.42 3.80 - 5.20 x10E12/L 07/13/2020 4:25 AM CDT [facility] Hemoglobin 12.5 12.0 - 15.6 gm/dL 07/13/2020 4:25 AM CDT [facility] Hematocrit 38.5 35.9 - 45.5 % 07/13/2020 4:25 AM CDT [facility] MCV 87.1 80.7 - 98.3 fl 07/13/2020 4:25 AM CDT [facility] MCH 28.3 26.7 - 34.0 pg 07/13/2020 4:25 AM CDT [facility] MCHC 32.5 30.8 - 35.9 gm/dL 07/13/2020 4:25 AM CDT [facility] Platelet Count 154 153 - 416 x10E9/L 07/13/2020 4:25 AM CDT [facility] RDW-CV 13.1 12.1 - 14.9 % 07/13/2020 4:25 AM CDT [facility] MPV 11.3 9.4 - 12.9 fl 07/13/2020 4:25 AM CDT [facility] Neutrophils % 59.2 44.0 - 73.0 % 07/13/2020 4:25 AM CDT [facility] Lymphocytes % 30.7 20.0 - 43.0 % 07/13/2020 4:25 AM CDT [facility] Monocytes % 8.5 5.0 - 13.0 % 07/13/2020 4:25 AM CDT [facility] Eosinophils % 0.9 0.0 - 6.0 % 07/13/2020 4:25 AM CDT [facility] Basophils % 0.4 0.0 - 2.0 % 07/13/2020 4:25 AM CDT [facility] Immature Granulocytes 0.3 0 - 1 % 07/13/2020 4:25 AM CDT [facility] Neutrophil Absolute 4.55 2.01 - 7.14 x10E9/L 07/13/2020 4:25 AM CDT [facility] Lymphocytes Absolute 2.36 1.07 - 3.94 x10E9/L 07/13/2020 4:25 AM CDT [facility] Monocytes Absolute 0.65 0.26 - 1.07 x10E9/L 07/13/2020 4:25 AM CDT [facility] Eosinophils Absolute 0.07 0 - 0.47 x10E9/L 07/13/2020 4:25 AM CDT [facility] Basophils Absolute 0.03 0 - 0.08 x10E9/L 07/13/2020 4:25 AM CDT [facility] Immature Granulocytes Absolute 0.02 0.00 - 0.06 x10E9/L 07/13/2020 4:25 AM CDT [facility] nRBC Auto 0 /100 WBC 07/13/2020 4:25 AM CDT [facility] Blood BLOOD SPECIMEN / Unknown Venipuncture / Unknown 07/13/2020 4:06 AM CDT 07/13/2020 4:16 AM CDT Trenton Stephens MD LAB - HEMATOLOGY ORD ERABLES [facility] [address] [place] [address] * (ABNORMAL) BASIC METABOLIC PANEL (CALCIUM TOTAL) (07/13/2020 4:06 AM CDT) Only the most recent of3 resultswithin the time period is included. Glucose 86 70 - 105 mg/dL 07/13/2020 4:42 AM CDT [facility] Sodium 140 136 - 145 mmol/L 07/13/2020 4:42 AM CDT [facility] Potassium 4.0 3.5 - 5.1 mmol/L 07/13/2020 4:42 AM CDT [facility] Chloride 108(H) 98 - 107 mmol/L 07/13/2020 4:42 AM CDT [facility] CO2 24 23 - 31 mmol/L 07/13/2020 4:42 AM CDT [facility] Calcium 8.3(L) 8.4 - 10.4 mg/dL 07/13/2020 4:42 AM CDT [facility] Anion Gap 8 8 - 18 mmol/L 07/13/2020 4:42 AM CDT [facility] Comment:Attention clinician: Reference Range change. BUN 9 7 - 18.7 mg/dL 07/13/2020 4:42 AM CDT [facility] Creatinine 0.92 0.57 - 1.11 mg/dL 07/13/2020 4:42 AM CDT [facility] eGFR by MDRD >60 >60 mL/min/1.7 3m2 07/13/2020 4:42 AM CDT [facility] eGFR by MDRD >60 >60 mL/min/1.7 3m2 07/13/2020 4:42 AM CDT [facility] Blood BLOOD SPECIMEN / Unknown Venipuncture / Unknown 07/13/2020 4:06 AM CDT 07/13/2020 4:16 AM CDT Trenton Stephens MD LAB - CHEMISTRY DAYDAY HATHAW[facility] Organization Address City/State/ZIP Co de Phone Number [facility] [address] [place] [address] * TROPONIN I (07/12/2020 8:36 AM CDT) Only the most recent of2 resultswithin the time period is included. Pathologist [facility] Troponin I <0.010 <0.038 ng/mL 07/12/2020 9:08 AM CDT [facility] Blood BLOOD SPECIMEN / Unknown Venipuncture / Unknown 07/12/2020 8:36 AM CDT 07/12/2020 8:44 AM CDT Yuli Ovalle MD LAB - CHEMISTRY ORDFrancisco HATHAWAY Performing Organization Address [facility] Co de Phone Number [facility] [address] [place] [address] * B-TYPE NATRIURETIC PEPTIDE (07/12/2020 2:55 AM CDT) BNP 41 <=100 pg/mL 07/12/2020 3:45 AM CDT [facility] Blood BLOOD SPECIMEN / Unknown Venipuncture / Unknown 07/12/2020 2:55 AM CDT 07/12/2020 3:08 AM CDT Trenton Stephens MD LAB - CHEMISTRY DAYDAY HATHAWAY Performing Organization Address [facility] Co de Phone Number [facility] [address] [place] [address] * ETT LINE PERFORMABLE (07/11/2020 12:00 PM CDT) Narrative Esme Patel APRN-CRNA - 07/11/2020 12:00 PM CDT Esme Patel APRN-CRNA 07/11/2020 12:01 PM Endotracheal Tube Placement: Patient Location: OR. Intubation Event Date/Time: 07/11/2020 11:45 AM Procedure: intubation ([id number]). Procedure Section: Sedation: under general anesthesia. Indications for Airway Management: anesthesia Procedure pretreatments used? No Induction: standard IV Patient Position: sniffing Mask Ventilation: easy with oral airway. Blade Type: Lyric Blade Size: 3 Laryngoscopy View: grade 1 (full cords) Intubation Adjuncts: stylet Tube: endotracheal tube Placement: oral Tube type: cuff - inflated Tube Size (MM): 7 Depth of Insertion (CM): 21 Measured From: lips Cuff volume (mL): 7 Cuff Inflated With: air Number of Attempts: 1. Placement Verified By: direct visualization, bilateral breath sounds, chest auscultation and CO2 monitor Tube secured with: adhesive tape. Dentition unchanged? Yes Difficult Airway? No. Procedure Start Time: 07/11/2020 11:45 AM. Staff Section Anesthesia Provider: Esme Patel APRN-CRNA, Performed the procedure Dannie Oliver MD GENERAL ANESTHESIA O RDERABLES * HCG URINE QUALITATIVE (07/11/2020 10:23 AM CDT) Pathologist [facility] hCG Qualitative Urine Negative Negative 07/11/2020 10:39 AM CDT [facility] Urine URINE / Unknown Collection / Unknown 07/11/2020 10:23 AM CDT 07/11/2020 10:30 AM CDT Taniya Hills DO LAB - URINALYSIS ORD ERABLES Performing Organization Address City/[facility] Co de Phone Number [facility] [address] [place] [address] * POTASSIUM BLOOD (07/11/2020 10:23 AM CDT) [facility] Potassium 3.7 3.5 - 5.1 mmol/L 07/11/2020 10:40 AM CDT [facility] Blood BLOOD SPECIMEN / Unknown Venipuncture / Unknown 07/11/2020 10:23 AM CDT 07/11/2020 10:31 AM CDT Trenton Stephens MD LAB - CHEMISTRY DAYDAY HATHAWAY Performing Organization Address City/[facility] Co de Phone Number [facility] [address] [place], [place] [phone] * SARS-COV-2 (COVID-19) IN HOUSE (07/08/2020 12:57 PM ELECTRICAL AND RADIO AIRCRAFT MECHANIC) Pathologist [facility] COVID-19 PCR Not detected Not detected 07/09/2020 1:20 AM ELECTRICAL AND RADIO AIRCRAFT MECHANIC [facility] Microbiology SPECIMEN FROM NASOPHARYNGEAL STRUCTURE / Unknown Collection / Unknown 07/08/2020 12:57 PM ELECTRICAL AND RADIO AIRCRAFT MECHANIC 07/08/2020 12:57 PM ELECTRICAL AND RADIO AIRCRAFT MECHANIC Narrative [facility] - 07/09/2020 1:20 AM ELECTRICAL AND RADIO AIRCRAFT MECHANIC This nucleic acid amplification assay performance was validated by [facility]. This test has been authorized by the Food and Drug administration (FDA)under an Emergency Use Authorization (EUA). This test has been validated in accordance with the FDA's guidance document Policy for Diagnostic Testing in Laboratories Certified to perform High Complexity Testing under CLIA prior to Emergency Use Authorization for Coronavirus Disease-2019 during the Public Health Emergency issued on June 26, 2019. FDA independent review of this validation is pending. This test is only authorized for the duration of time the declaration that circumstances exist justifying the authorization of emergency use of in vitro diagnostic tests for detection of SARS-CoV-2 virus and/or diagnosis of COVID-19 infection under section 564(b)(1) of the Act, 21 U.S.C 360bbb-3 (b)(1), unless the authorization is terminated or revoked sooner. Fact Sheets for this EUA assay are available upon request. Trenton Stephens MD LAB - MICROBIOLOGY O NOVA Performing Organization Address City/[facility]/ZIP Co de Phone Number [facility] [address] [facility] [address] [phone] * HELICOBACTER PYLORI UREASE (STL) (01/17/2020 7:45 AM CDT) Helicobacter pylori Urease Initial Negative Negative 01/18/2020 5:06 PM CDT [facility] Helicobacter pylori Urease Final Negative Negative 01/18/2020 5:06 PM CDT [facility] Comment:This is an appended report. These results have been appended to a previously preliminary verified report. Microbiology GASTRIC ANTRAL BIOPSY SPECIMEN / Unknown 01/17/2020 7:45 AM CDT 01/17/2020 3:55 PM CDT Trenton Stephens MD LAB - MICROBIOLOGY O NOVA Performing Organization Address City/[facility]/ZIP Co de Phone Number [facility] [address] [place] [address] * EKG 12-LEAD (12/30/2019) Trenton Stephens MD ECG ORDERABLES * FL UGI W AIR CONTRAST (12/03/2019 8:30 AM CDT) Anatomical Region Laterality Modality Abdomen Radiographic Pili ging 12/03/2019 11:3 9 AM CDT Impressions 12/03/2019 11:41 AM CDT Small hiatal hernia developed with the patient supine and bearing down. Unremarkable exam otherwise. *Reading Radiologist: Jose R Gonzalez on 12/03/2019 at 11:41 AM Narrative 12/03/2019 11:41 AM CDT Examination: Upper GI examination with air contrast HISTORY: Morbid obesity. TECHNIQUE: Upper GI examination was performed with barium and gas crystals. Total fluoroscopy time is 53 seconds. 351 images obtained and submitted. FINDINGS: There is no distal esophageal stricture or ring. The gastric fold pattern is within normal limits. The duodenal sweep is normal. A small hiatal hernia developed with the patient laying supine and is bearing down. Procedure Note Joes R Gonzalez MD - 12/03/2019 Examination: Upper GI examination with air contrast HISTORY: Morbid obesity. TECHNIQUE: Upper GI examination was performed with barium and gas crystals. Total fluoroscopy time is 53 seconds. 351 images obtained and submitted. FINDINGS: There is no distal esophageal stricture or ring. The gastric fold pattern is within normal limits. The duodenal sweep is normal. A small hiatal hernia developed with the patient laying supine and is bearing down. IMPRESSION Small hiatal hernia developed with the patient supine and bearing down. Unremarkable exam otherwise. *Reading Radiologist: Jose R Gonzalez on 12/03/2019 at 11:41 AM Trenton Stephens MD FLUOROSCOPY ORDERABL ES * GROSS + MICRO EXAM (10/02/1996 8:54 AM CDT) Result CASE NUMBER [id number] Comment: ORDERING PHYSICIAN SHANIQUE BALDWIN [facility] SPECIMEN TYPE Placenta Date 10/04/1996 Physician Leroy Gross Description The specimen is received fresh in a container labeled with the patient's name only. The specimen consists of a single placental disc with attached membranes and cord weighing 620 grams. The placental disc measures 20.5 cm x 18 cm x 2.2 cm in greatest thickness. The membranes have a translucent pink-pozo appearance and are attached marginally. The umbilical cord has a somewhat eccentric insertion, inserting 3.7 cm from the nearest margin. The umbilical cord measures 31 cm in length x 1.2 cm in diameter and on cut section 3 vessels are identified. The surface has a glistening blue-crowe appearance with normal vascular arcades and without nodules. The surface is a deep red-brown with apparent blood clot and complete cotyledons. On serial sectioning, no infarcts are identified. Raw Scales Operator sections of and maternal surfaces as well as the umbilical cord and membranes are submitted in 4 cassettes for microscopic description. DK/lmj Microscopic Exam Sections of the placenta show focal collections of neutrophils in the chorion, but no evidence of inflammation of the cord. The chorionic villi are immature and there is a decreased number of syncytial knots present. No villitis is present. A 3 vessel cord is noted. Diagnosis I. Placenta A. Immature placenta (620 grams). B. Acute chorioamnionitis, mild, focal. C. 3 vessel umbilical cord. *[place] Code 1 [id number] - [id number], [id number] [facility] bk Pathologist Ish Willard M.D. [place]. 1996 1649 <2> MISCELLANEOUS SAMPLES / Unknown 10/02/1996 8:54 AM CDT 10/04/1996 8:54 AM CDT Historical Provider LAB - PATHOLOGY/C YTOLOGY ORDERABLES Care Teams Career Development Counselor Relationship Specialty Start Date End Date Bacilio Cardona MD [address] [place] [address] [phone] PCP - General Family Medicine 03/04/19
--- OUTSIDE RECORDS SUMMARY | 2024-06-08 16:26 | XMS_ITS | Referral Summary ---
Author Organization [facility] Access Intelligence Address [address] [place] [address] Care Team Providers Care Board Of Education Secretary Name Role Phone Bacilio Cardona MD Primary Care Provider [phone]- [phone] Source Comments [facility],non-owned Affiliates and Associated Physician Practices is amultiple site organization consisting of ambulatory clinics and hospital sitesin [place], [place], [place] and [place]. This disclosure is being madepursuant to the Care Everywhere program and may not contain all information available regarding this patient. Last updated 18.[facility] [employer] Allergies Active Allergy Reactions Criticality Noted Date Comments Aspirin Anaphylaxis,Nausea and/or Vomiting,Swelling High 08/20/2017 Reaction: Nausea, Swelling, Anaphylaxis, Imipramine Hcl Other,Unknown 08/04/2012 nightmares Peanut-Derived Other Medium 04/19/2009 Tomato Other Medium 04/19/2009 Medications * Be aware that medications may not be up to date on this document. Alwaysverify current medications with the patient. Medication Sig Dispensed Refills Start Date End Date Status albuterol HFA (Proventil; Ventolin; Proair) 108 (90 Base) MCG/ACT inhaler Inhale 2 (two) puffs by mouth every 4 hours as needed for Shortness of Breath 01/11/2016 Active ARIPiprazole (ABILIFY) 10 MG tablet Take 1 (one) tablet by mouth at bedtime 04/14/2019 Active montelukast (SINGULAIR) 10 MG tablet Take 1 (one) tablet by mouth every evening 05/24/2019 Active pantoprazole EC (PROTONIX) 40 MG tablet Take 40 mg by mouth at bedtime 09/05/2014 Active sertraline (ZOLOFT) 100 MG tablet Take 2 (two) tablets by mouth at bedtime 04/14/2019 Active triamcinolone acetonide (KENALOG) 0.1 % cream Apply 1 Dose to affected area 2 times daily as needed (rash) 12/05/2017 Active rosuvastatin (CRESTOR) 40 MG tablet Take 1 (one) tablet by mouth at bedtime 05/27/2020 Active SUMAtriptan (IMITREX) 100 MG tablet Take 1 (one) tablet by mouth once as needed for Migraine 07/03/2020 Active clopidogrel (plaVIX) 75 MG tablet Take 1 (one) tablet by mouth once daily Active amitriptyline (ELAVIL) 10 MG tablet 01/15/2021 Act jovanni metoprolol succinate XL 24hr (TOPROL XL) 50 MG tablet Take 1 tablet by mouth once daily 03/25/2021 Active acarbose (Precose) 25 MG tablet 1 TAB 3 X DAILY- TAKE IT WITH 1ST BITE OF YOUR MEAL W/ BREAKFAST, LUNCH AND DINNER 04/30/2022 Active Continuous Blood Gluc Steel Rule Die Maker (ArmorText Beto 2 [place] [employer]) JEF as directed 11/02/2021 Active Active Problems Problem Noted Date Diagnosed [...] Sex Assigned at Female 03/13/2021 8:47 AM PARAFFIN PLANT SWEATER OPERATOR Gender Identity Female 03/13/2021 8:47 AM PARAFFIN PLANT SWEATER OPERATOR Sexual Orientation Not on file Last Filed [...] Mass Index 41.5 07/26/2022 11:48 AM CDT Functional Status Functional Status Response Date of Assess ment Is person deaf or have serious hearing difficult y? No 07/11/2020 Is person blind or have serious difficulty seein g? No 07/11/2020 Does person have serious dif ficulty walking/climbing stairs? No 07/11/2020 Does person have difficulty dressing/bathing? No 07/11/2020 Does person have difficulty doing errands alone? No 07/11/2020 Cognitive Status Response Date of Assessm ent Does person have difficulty concentrating/remembering/making decisions? No 07/11/2020 Plan of Treatment Not on file Procedures Procedure Name Priority Date/Time Associated Diagnosis Comments COMPREHENSIVE METABOLIC PANEL Routine 04/06/2021 9:53 AM PARAFFIN PLANT SWEATER OPERATOR H/O gastric bypass Dietary counseling and surveillance Other specified intestinal malabsorption (HCC) Vitamin deficiency History of morbid obesity from Last 3 Months or Most Recently Relevant to Health Maintenance Results * (ABNORMAL) COMPREHENSIVE METABOLIC PANEL (04/06/2021 9:53 AM PARAFFIN PLANT SWEATER OPERATOR) Glucose 60(L) 65 - 99 mg/dL [facility] INSURANCE BILL BUN 13 6 - 24 mg/dL [facility] INSURANCE BILL Creatinine 0.91 0.57 - 1.00 mg/dL [facility] INSURANCE BILL eGFR by MDRD 74 >59 mL/min/1. 73 [facility] INSURANCE BILL eGFR by MDRD 85 >59 mL/min/1. 73 [facility] INSURANCE BILL Comment: In accordance with recommendations from the NKF-ASN Task force, [facility] is in the process of updating its [...] BLOOD SPECIMEN / Unknown 04/06/2021 9:53 AM PARAFFIN PLANT SWEATER OPERATOR 04/06/2021 Narrative Resulting Agency Comment Lab Testing performed at: [facility] [address] [facility] [phone] Olivia Doyle BAKERY HELPER-TEENAGE PROGRAM DIRECTOR LAB - CHEMISTRY O RDERABLES [facility] INSURANCE BILL [address] [place] [address] from Last 3 Months or Most Recently Relevant to Health Maintenance Advance Directives * Full Code (Latest Code Status on File) Date Activated Date Inactivated Comments 07/11/2020 3:43 PM 07/13/2020 2:01 PM Care Teams Board Of Education Secretary Relationship Specialty Start Date End Date Bacilio Cardona MD [address] [place] [phone] PCP - General Family Medicine 03/04/19
--- OUTSIDE RECORDS SUMMARY | 2024-06-08 16:26 | XMS_ITS | Clinical Summary ---
Author Organization [facility] [email or web address] Address [address] [facility] [place] [address] Care Team Providers Care Processing Engineer Name Role Phone Bacilio Cardona MD Primary Care Provider +1- [phone] Source Comments [facility],non-owned Affiliates and Associated Physician Practices is amultiple site organization consisting of ambulatory clinics and hospital sitesin [place], [place], [place] and [place]. This disclosure is being madepursuant to the Care Everywhere program and may not contain all information available regarding this patient. Last updated 18.[facility] [email or web address] Allergies Active Allergy Reactions Criticality Noted Date [...] AND DINNER 04/30/2022 Active Continuous Blood Gluc Mri Specialist (Complix Beto [employer] [place] [employer]) JEF as directed 11/02/2021 Active Active Problems Problem Noted Date Diagnosed Date S/P gastric bypass 07/11/2020 Family History Medical History Relation Name Comments CVA Maternal Grandmother Diabetes - Type 2 Maternal Grandmother CAD (Coronary Artery Disease) Mother Hypertension Mother Lupus Mother Cancer - Breast Paternal Grandmother Relation Name Status Comments Father Maternal Grandmother Mother Paternal Grandmother Social History Tobacco Use Types Packs/Day Years [...] Sex Assigned at Female 03/13/2021 8:47 AM DIRECTOR ACUTE Gender Identity Female 03/13/2021 8:47 AM DIRECTOR ACUTE Sexual Orientation Not on file Last Filed [...] Mass Index 41.5 07/26/2022 11:48 AM CDT Plan of Treatment Health Maintenance Due Date Last Done Comments COLOGUARD (AGES 45-75) - COLON CA SCREENING 1970 COLON MONITORING 1970 COLONOSCOPY - COLON CA SCREENING 1970 CT COLONOGRAPHY - COLON CA SCREENING 1970 Colorectal Cancer Screening 1970 FIT - COLON CA SCREENING 1970 FLEX SIG - COLON CA SCREENING 1970 MAMMOGRAM 1970 PAP SMEAR 1970 HIV SCREENING 1985 HEPATITIS C SCREENING 09/30/1988 DTAP/TDAP/TD VACCINES (1 - Tdap) 1989 HEPATITIS B VACCINE (1 of 3 - 19+ 3-dose series) 1989 PNEUMOCOCCAL VACCINE 50+ (1 of 1 - PCV) 2020 ZOSTER VACCINE (1 of 2) 2020 COVID-19 VACCINE (1 - season) 2023 INFLUENZA VACCINE (#1) 2023 02/14/2015 SCREENING FOR DIABETES 04/06/2024 , 07/13/2020, 07/13/2020, Additional history exists DEPRESSION SCREENING 04/28/2024 HIB VACCINE Aged Out No longer eligi ble based on patient's age to complete this topic HPV VACCINE Aged Out No longer eligi ble based on patient's age to complete this topic MENINGOCOCCAL (Group B) VACCINE Aged Out No longer eligible based on patient's age to complete this topic MENINGOCOCCAL VACCINE Aged Out No david fransisco eligible based on patient's age to complete this topic PNEUMOCOCCAL VACCINE Aged Out No long er eligible based on patient's age to complete this topic Procedures Procedure Name Priority Date/Time Associated Diagnosis Comments COMPREHENSIVE METABOLIC PANEL Routine 04/06/2021 9:53 AM DIRECTOR ACUTE H/O gastric bypass Dietary counseling and surveillance Other specified intestinal malabsorption (HCC) Vitamin deficiency History of morbid obesity from Last 3 Months or Most Recently Relevant to Health Maintenance Results * (ABNORMAL) COMPREHENSIVE METABOLIC PANEL (04/06/2021 9:53 AM DIRECTOR ACUTE) Glucose 60(L) 65 - 99 mg/dL [facility] [...] BLOOD SPECIMEN / Unknown 04/06/2021 9:53 AM DIRECTOR ACUTE 04/06/2021 Narrative Resulting Agency Comment Lab Testing performed at: [facility] [address] [facility] [phone] Olivia Doyle APRN-COLLECTION ADVISOR LAB - CHEMISTRY O RDERABLES [facility] INSURANCE BILL [address] [place] [address] from Last 3 Months or Most Recently Relevant to Health Maintenance Advance Directives * Full Code (Latest Code Status on File) Date Activated Date Inactivated Comments 07/11/2020 3:43 PM 07/13/2020 2:01 PM Care Teams Processing Engineer Relationship Specialty Start Date End Date Bacilio Cardona MD [address] [place] [phone] PCP - General Family Medicine 03/04/19
--- OUTSIDE RECORDS SUMMARY | 2024-06-08 16:26 | XMS_ITS ---
Author Organization Unknown Medications Medication Instructions Effective Dates (start - stop) Status rosuvastatin calcium 40 MG O ral Tablet 7739-01-31C24:00:00.000+00:0 0 - Completed montelukast 10 MG Oral Tablet 17-09-28:00:00.000+00:00 - Completed armodafinil 150 MG Oral Tablet 2 558-74-26V65:00:00.000+00:00 - Completed armodafinil 150 MG Oral Tablet 2 740-73-49I97:00:00.000+00:00 - Completed clopidogrel 75 MG Oral Tablet 18-04-18:00:00.000+00:00 - Completed sertraline 100 MG Oral Tablet 17-09-28:00:00.000+00:00 - Completed 24 HR metoprolol succinate 5 0 MG Extended Release Oral Tablet 9268-55-58S65:00:00.000+0 0:00 - Completed armodafinil 150 MG Oral Tablet 2 599-27-56B53:00:00.000+00:00 - Completed amitriptyline hydrochloride 10 MG Oral Tablet 5770-33-87V68:00:00.000+00:0 0 - Completed montelukast 10 MG Oral Tablet 20-06-06:00:00.000+00:00 - Completed aripiprazole 10 MG Oral Tablet 2 976-56-47B68:00:00.000+00:00 - Completed 24 HR metoprolol succinate 5 0 MG Extended Release Oral Tablet 8908-52-47A03:00:00.000+0 0:00 - Completed armodafinil 150 MG Oral Tablet 2 806-09-42E03:00:00.000+00:00 - Completed sertraline 100 MG Oral Tablet 20 17-01-05:00:00.000+00:00 - Completed amitriptyline hydrochloride 10 MG Oral Tablet 4627-53-46W69:00:00.000+00:0 0 - Completed 24 HR metoprolol succinate 5 0 MG Extended Release Oral Tablet 9860-35-32R98:00:00.000+0 0:00 - Completed amitriptyline hydrochloride 10 MG Oral Tablet 8877-32-65B82:00:00.000+00:0 0 - Completed armodafinil 150 MG Oral Tablet 2 671-88-08E39:00:00.000+00:00 - Completed clopidogrel 75 MG Oral Tablet 17-01-21:00:00.000+00:00 - Completed montelukast 10 MG Oral Tablet 18-12-11:00:00.000+00:00 - Completed montelukast 10 MG Oral Tablet 19-03-13:00:00.000+00:00 - Completed clopidogrel 75 MG Oral Tablet 18-10-21:00:00.000+00:00 - Completed montelukast 10 MG Oral Tablet 18-07-00:00:00.000+00:00 - Completed sertraline 100 MG Oral Tablet 18-04-05:00:00.000+00:00 - Completed clopidogrel 75 MG Oral Tablet 19-07-15:00:00.000+00:00 - Completed sertraline 100 MG Oral Tablet 18-07-01:00:00.000+00:00 - Completed rosuvastatin calcium 40 MG O ral Tablet 6158-41-83G54:00:00.000+00:0 0 - Completed - 3585-63-91E66:00 :00.000+00:00 - Completed rosuvastatin calcium 40 MG O ral Tablet 6631-07-97S88:00:00.000+00:0 0 - Completed sumatriptan 100 MG Oral Tablet 680-54-09D94:00:00.000+00:00 - Completed armodafinil 150 MG Oral Tablet 813-50-60M38:00:00.000+00:00 - Completed rosuvastatin calcium 40 MG O ral Tablet 1579-82-01W77:00:00.000+00:0 0 - Completed aripiprazole 10 MG Oral Tablet 2 160-03-76J46:00:00.000+00:00 - Completed 0.5 ML varicella zoster viru s glycoprotein E, recombinant 0.1 MG/ML Injection [Shingrix] 7325-39-97C66:00:00.000+00: 00 - Completed aripiprazole 10 MG Oral Tablet 2 884-70-90D40:00:00.000+00:00 - Completed aripiprazole 10 MG Oral Tablet 2 291-69-13K15:00:00.000+00:00 - Completed rosuvastatin calcium 40 MG O ral Tablet 9903-41-30U30:00:00.000+00:0 0 - Completed pantoprazole 40 MG Delayed Release Oral Tablet 8182-38-40U00:00:00.000+00:0 0 - Completed - 6557-70-03M95:00 :00.000+00:00 - Completed [id number] 200 ACTUAT albuter ol 0.09 MG/ACTUAT Metered Dose Inhaler 8714-98-28J22:00:00.000+00:0 0 - Completed amoxicillin 500 MG Oral Capsule 8298-17-84I74:00:00.000+00:00 - Completed [id number] 200 ACTUAT albuter ol 0.09 MG/ACTUAT Metered Dose Inhaler 7075-75-39O07:00:00.000+00:0 0 - Completed acarbose 25 MG Oral Tablet :00:00.000+00:00 - Completed estradiol 0.1 MG/ML Vaginal Cream 5666-79-65E99:00:00.000+00:00 - Completed acarbose 25 MG Oral Tablet :00:00.000+00:00 - Completed triamcinolone acetonide 1 MG /ML Topical Cream 4492-42-91M57:00:00.000+00:0 0 - Completed acarbose 100 MG Oral Tablet 2022:00:00.000+00:00 - Completed estradiol 0.1 MG/ML Vaginal Cream 5945-13-03P29:00:00.000+00:00 - Completed acarbose 50 MG Oral Tablet 07-12T00:00:00.000+00:00 - Completed glucagon 3 MG Nasal Powder [Baqsimi] 0832-08-88W55:00:00.000+00:0 0 - Completed acarbose 25 MG Oral Tablet 04-30T00:00:00.000+00:00 - Completed triamcinolone acetonide 1 MG /ML Topical Cream 6160-67-79F33:00:00.000+00:0 0 - Completed Patient Care team information Name Category Status Period Participants - - Proposed period not known -
[2024-06-08 16:27] VITALS: BP 139/78; PULSE 111; RESP 18; TEMP 36.7; O2SAT 99
--- OUTSIDE RECORDS SUMMARY | 2024-06-08 16:27 | XMS_ITS | Clinical Summary ---
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 becky Frausto at [facility].and Dr. Tavares Martin Multiple fractures from sports a nd martial arts Migraines Seizure disorder (CMS/HCC) (HCC) GERD (gastroesophageal reflux disease) Asthma Anxiety Hypertension Hyperlipidemia Family History Medical History Relation Name Comments COPD Father Coronary artery disease Father Factor V Leiden Father Other Father Alive and well; Coronary artery disease Mother Relation Name Status Comments Father (Age 73 yo) of massive AR vs aortic rupture Mother Alive STarted w/ CAD, stents in early 60's, Etoh Social History Tobacco Use Types Packs/Day Years Used Date Smoking Tobacco: Never Smokeless Tobacco: Never Tobacco Cessation:Counseling Given: Not Answered Comments Unknown Sex and Gender Information Value Date Recorded Sex Assigned at Not on file Legal Sex Female 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 Gender Identity Not on file Sexual Orientation Not on file Obstetrics History Last Filed Vital Signs Vital Sign Reading [...] 11/14/2023 10:05 AM CDT Plan of Treatment Health Maintenance Due Date Last Done Comments Breast Cancer Screening-Mammogram 1970 Cervical Cancer Screening 1970 Colon Cancer Screening-Colonoscopy 1970 Depression Screening 1970 Hepatitis C Screening 1970 Pneumococcal vaccine <65 (1 of 2 - PCV) 1976 DTaP/Tdap/Td Vaccine (1 - Tdap) 1981 Hepatitis B Screening 1988 Regular Well Visit/Exam 18-64 1988 Zoster Vaccine (1 of 2) 2020 Influenza Vaccine (#1) 2023 9, 12/25/2017, 12/17/2016, Additional history exists Insurance [facility] Care Teams Clinical Research Specialist Relationship Specialty Start Date End Date Bacilio Cardona MD PCP - General 06/26/17
--- OUTSIDE RECORDS SUMMARY | 2024-06-08 16:27 | XMS_ITS ---
Author Organization Unknown Medications Medication Instructions Effective Dates (start - stop) Status rosuvastatin calcium 40 MG O ral Tablet 1937-69-15P52:00:00.000+00:0 0 - Completed montelukast 10 MG Oral Tablet 17-09-28:00:00.000+00:00 - Completed armodafinil 150 MG Oral Tablet 2 439-99-16Y34:00:00.000+00:00 - Completed armodafinil 150 MG Oral Tablet 2 609-01-63C81:00:00.000+00:00 - Completed clopidogrel 75 MG Oral Tablet 18-04-18:00:00.000+00:00 - Completed sertraline 100 MG Oral Tablet 17-09-28:00:00.000+00:00 - Completed 24 HR metoprolol succinate 5 0 MG Extended Release Oral Tablet 5281-63-77X49:00:00.000+0 0:00 - Completed armodafinil 150 MG Oral Tablet 2 627-08-07T52:00:00.000+00:00 - Completed amitriptyline hydrochloride 10 MG Oral Tablet 2159-23-18R29:00:00.000+00:0 0 - Completed montelukast 10 MG Oral Tablet 20-06-06:00:00.000+00:00 - Completed aripiprazole 10 MG Oral Tablet 2 555-40-00Q62:00:00.000+00:00 - Completed 24 HR metoprolol succinate 5 0 MG Extended Release Oral Tablet 4970-43-68F61:00:00.000+0 0:00 - Completed armodafinil 150 MG Oral Tablet 2 357-22-20X39:00:00.000+00:00 - Completed sertraline 100 MG Oral Tablet 20 17-01-05:00:00.000+00:00 - Completed amitriptyline hydrochloride 10 MG Oral Tablet 6654-22-50N88:00:00.000+00:0 0 - Completed 24 HR metoprolol succinate 5 0 MG Extended Release Oral Tablet 9695-60-68X37:00:00.000+0 0:00 - Completed amitriptyline hydrochloride 10 MG Oral Tablet 3470-86-02J52:00:00.000+00:0 0 - Completed armodafinil 150 MG Oral Tablet 2 154-27-78G35:00:00.000+00:00 - Completed clopidogrel 75 MG Oral Tablet [...] rosuvastatin calcium 40 MG O ral Tablet 9182-11-62Q50:00:00.000+00:0 0 - Completed - 7150-01-09H83:00 :00.000+00:00 - Completed rosuvastatin calcium 40 MG O ral Tablet 9883-32-00G02:00:00.000+00:0 0 - Completed sumatriptan 100 MG Oral Tablet 490-65-35W47:00:00.000+00:00 - Completed armodafinil 150 MG Oral Tablet 555-20-64D30:00:00.000+00:00 - Completed rosuvastatin calcium 40 MG O ral Tablet 6498-55-53E06:00:00.000+00:0 0 - Completed aripiprazole 10 MG Oral Tablet 2 741-26-01K30:00:00.000+00:00 - Completed 0.5 ML varicella zoster viru s glycoprotein E, recombinant 0.1 MG/ML Injection [Shingrix] 7284-59-01I06:00:00.000+00: 00 - Completed aripiprazole 10 MG Oral Tablet 2 996-53-81O27:00:00.000+00:00 - Completed aripiprazole 10 MG Oral Tablet 2 457-82-28U48:00:00.000+00:00 - Completed rosuvastatin calcium 40 MG O ral Tablet 7639-22-56W50:00:00.000+00:0 0 - Completed pantoprazole 40 MG Delayed Release Oral Tablet 4425-26-62X92:00:00.000+00:0 0 - Completed - 1553-66-92J45:00 :00.000+00:00 - Completed [id number] 200 ACTUAT albuter ol 0.09 MG/ACTUAT Metered Dose Inhaler 6814-00-40B64:00:00.000+00:0 0 - Completed amoxicillin 500 MG Oral Capsule 5012-73-95G89:00:00.000+00:00 - Completed [id number] 200 ACTUAT albuter ol 0.09 MG/ACTUAT Metered Dose Inhaler 9856-14-29V10:00:00.000+00:0 0 - Completed acarbose 25 MG Oral Tablet :00:00.000+00:00 - Completed estradiol 0.1 MG/ML Vaginal Cream 7720-52-58B39:00:00.000+00:00 - Completed acarbose 25 MG Oral Tablet :00:00.000+00:00 - Completed triamcinolone acetonide 1 MG /ML Topical Cream 0321-72-24A12:00:00.000+00:0 0 - Completed acarbose 100 MG Oral Tablet 2022:00:00.000+00:00 - Completed estradiol 0.1 MG/ML Vaginal Cream 7654-06-59S49:00:00.000+00:00 - Completed acarbose 50 MG Oral Tablet 07-12T00:00:00.000+00:00 - Completed glucagon 3 MG Nasal Powder [Baqsimi] 9103-83-47I93:00:00.000+00:0 0 - Completed acarbose 25 MG Oral Tablet 04-30T00:00:00.000+00:00 - Completed triamcinolone acetonide 1 MG /ML Topical Cream 1676-76-92U44:00:00.000+00:0 0 - Completed Patient Care team information Name Category Status Period Participants - - Proposed period not known -
--- OUTSIDE RECORDS SUMMARY | 2024-06-08 16:27 | XMS_ITS | Clinical Summary ---
Author Organization [facility] Address [address] [place] [address] Phone Care Team Providers Care Bobbin Drier Name Role Phone Unavailable Primary Care Provider Unavailabl e Medications Medication Sig Dispensed Refills Start Date End Date Status clonazePAM (KlonoPIN) 0.5 MG tablet 1 tab/cap bid 09/05/2014 Active spironolactone (ALDACTONE) 100 MG tablet 1 tab/cap qday 0 09/04/2014 Active diphenhydrAMINE (BENADRYL) 25 MG tablet 1 tab/cap qid PRN itching 09/04/2014 Active imipramine (TOFRANIL) 25 MG tablet 1 tab/cap qday 09/04/2014 Active ALPRAZolam (XANAX) 0.5 MG tablet 1 tab/cap bid 09/05/2014 Active lovastatin (MEVACOR) 20 MG tablet 1 tab/cap qday 09/04/2014 Active nebivolol (BYSTOLIC) 10 MG tablet 1 tab/cap qday 09/04/2014 Active diclofenac (VOLTAREN) 75 MG EC tablet 1 tab/cap bid 09/04/2014 Active propranolol LA (INDERAL LA) 160 MG 24 hr capsule 09/05/2014 Active cholecalciferol (VITAMIN D-3) 2000 units tablet 1 tab/cap qday 0 09/04/2014 Active pantoprazole (PROTONIX) 40 MG EC tablet 1 tab/cap qday 09/05/2014 Active fexofenadine (ABHISHEK) 180 MG tablet 1 tab/cap qday 09/05/2014 Active Active Problems Problem Noted Date Diagnosed Date Acute kidney failure 09/04/2014 Essential (primary) hypertension 09/04/2014 Other hyperlipidemia 09/04/2014 Overview (07/11/2018): Converted unresolved ICD9, potential mismatch. Other asthma 09/04/2014 Calculus of kidney 09/04/2014 Osteoarthritis 09/04/2014 Immunizations Name Administration Dates Next Due Influenza TIV (IM) 02/14/2015 Family History Medical History Relation Comments Hypertensive disorder Father Malignant neoplastic disease Father Coronary arteriosclerosis Mother Hypertensive disorder Mother Diabetes mellitus Relative Kidney stone Relative Kidney disease Neg Hx Relation Status Comments Father Mother Relative Social History Tobacco Use Types Packs/Day Years Used Date Smoking Tobacco: Never Assessed Sex and Gender Information Value Date Recorded Sex Assigned at Not on file Gender Identity Not on file Sexual Orientation Not on file Last Filed Vital Signs Vital Sign Reading Time Taken Comments Blood Pressure 130/70 02/14/2015 12:01 AM CDT Si tting, Right Pulse - - Temperature 36 C (96.8 F) 02/14/2015 12:01 AM CDT Respiratory Rate - - Oxygen Saturation - - Inhaled Oxygen Concentration - - Weight 120 kg (265 lb) 02/14/2015 12:01 AM CDT Height 160 cm (5' 3 ) 02/14/2015 12:01 AM CDT Body Mass Index 46.94 02/14/2015 12:01 AM CDT Plan of Treatment Not on file
--- NOTE | 2024-06-08 16:59 | ED.GENADULT ---
HPI - General Adult General Chief complaint: Back Pain/Injury Stated complaint: Back Pain Time Seen by Provider: 06/08/24 17:01 Source: patient, RN notes reviewed and old records reviewed Mode of arrival: ambulatory Limitations: no limitations History of Present Illness HPI narrative: 53-year-old female presents to the [facility] with right lower back pain radiating to the hip. Patient states that she has concern for both a kidney stone in a UTI. No treatment prior to arrival Patient's urine shows possibility both UTI and kidney stone. Discussed with patient and her that we do not to CT scans for diagnosis of a kidney stone, patient is declining transfer at this time. States that she just wants to be treated for the possible UTI. Has been verbalized that his symptoms get worse or pain gets worse that he will take her to the emergency room for evaluation. Onset (ago): hour(s) Related Data Home Medications ?Medication ?Instructions ?Recorded ?Confirmed ?Last Taken ?Type montelukast 10 mg tablet 10 mg PO HS 12/30/23 03/19/24 01/07/24 History triamcinolone acetonide 0.1 % 1 applic topical TID PRN Rash 12/30/23 03/19/24 01/07/24 History topical cream metoprolol succinate 25 mg mg PO 03/19/24 03/19/24 Unknown History tablet,extended release 24 hr Allergies Allergy/AdvReac Type Severity Reaction Status Date / Time diclofenac Allergy Severe Kidneys Verified 06/08/24 16:35 shut down gabapentin Allergy Severe KIDNEY Verified 06/08/24 16:35 ISSUES tomato Allergy Mild Hives Verified 06/08/24 16:35 aspirin AdvReac Intermediate Fever Verified 06/08/24 16:35 imipramine AdvReac Intermediate nightmares Verified 06/08/24 16:35 nut - unspecified AdvReac Intermediate Gastrointestinal Verified 06/08/24 16:35 Upset peanut AdvReac Intermediate Gastrointestinal Verified 06/08/24 16:35 Upset sweet potato AdvReac Intermediate Gastrointestinal Verified 06/08/24 16:35 Upset Review of Systems Review of Systems: All systems reviewed & are unremarkable except as noted in HPI and below Constitutional: Constitutional: Reports no additional constitutional complaints ENT: Reports system reviewed and no additional complaints, except as documented Cardiovascular: Cardiovascular: Reports no additional cardiovascular complaints, Denies chest pain and Denies dyspnea Respiratory: Respiratory: Reports no additional respiratory complaints, Denies chest congestion, Denies cough and Denies dyspnea Genitourinary: Genitourinary: Reports as per HPI Musculoskeletal: Musculoskeletal: Reports as per HPI Integumentary/Breasts: Skin/Breast: Reports system reviewed and no additional complaints, except as docu PMFSH Past Medical History Medical History Coronary arteriosclerosis in [place] artery no stent due to asa intolerance, using plavix HTN (hypertension) Obesity (BMI 35.0-39.9 without comorbidity) Mixed hyperlipidemia Narcolepsy without cataplexy Surgical History Surgical History Gastric bypass status for obesity Family History Family History Grandparent Family history of malignant neoplasm of breast Father Family history of arthritis Mother Family history of arthritis Other Cerebrovascular accident Diabetes mellitus Family history of allergic disorder Family history of cardiovascular disease Family history of elevated blood lipids Family history of kidney disease Family history of malignant neoplasm Family history of tuberculosis Hypertension Social History Social History Smoking status: Never smoker Second hand tobacco smoke exposure: No Alcohol intake: current Substance use: never Substance use type: does not use Do You Feel Safe in your Home?: Yes Lack of Transportation: No Lack of Food: Never True Current Housing: I Have Housing Concerned About Future Housing: No Difficulty Paying Gas/Electric Bills: No Difficulty Paying for Meds: No Currently Unemployed: No Education: Associate Degree Difficulty w/ Childcare or Family Care: No Living arrangements: with family Gender identity (if verbalized by the patient): Female Spiritual care concerns: No Comments At the time of my signature, I reviewed and agree with the nursing past medical, surgical, social, and family history. There is no relevant family history pertinent to the patient complaint. Exam Const: General: cooperative, healthy appearing, comfortable, no acute distress, well developed, alert and well nourished Nutritional Appearance: well nourished and obese Orientation/consciousness: patient oriented x3 Limitations: no limitations HENMT: Head: normal to inspection Eyes: General: appearance normal, both eyes and all related structures Alignment and Position: alignment normal Neck: Neck: normal visual inspection, full ROM, no lymphadenopathy and no meningeal signs Chest: Chest palpation & inspection: normal inspection of the chest Resp: Effort & Inspection: normal respiratory effort and able to speak in complete sentences Auscultation: clear to auscultation bilaterally, no crackles, no rales, no rhonchi and no wheezes Cardio: Rate: regular rate GI: GI Palp: No abdominal tenderness and Yes Soft to palpation : General: Yes no CVA tenderness Back/Spine/Pelvis: Back: no CVA tenderness and No back tenderness Skin: General skin exam: normal color and no rashes or lesions noted Neuro: General: patient oriented x3, gait normal, moves all extremities and no meningeal signs Cognition (Neuro): normal cognition Speech: normal speech Gait exam (Neuro): Normal gait present Extrem: General: normal to inspection, full ROM, capillary refill normal and normal gait Psych: Appearance: grossly normal and well kempt Mental Status: mental status grossly normal Speech and movement: Normal speech and movement present and Clear speech present Affect: normal affect Attitude: cooperative Course Course Level of Care: Express Care Visit Vital Signs Vital signs: Vital Signs Temperature 98.0 F 06/08/24 16:27 Pulse Rate 111 H 06/08/24 16:27 Respiratory Rate 18 06/08/24 16:27 Blood Pressure 139/78 06/08/24 16:27 Pulse Oximetry 99 06/08/24 16:27 Oxygen Delivery Room Air 06/08/24 16:27 Temperature 98.0 F 06/08/24 16:27 Pulse Rate 111 H 06/08/24 16:27 Respiratory Rate 18 06/08/24 16:27 Blood Pressure 139/78 06/08/24 16:27 Pulse Oximetry 99 06/08/24 16:27 Oxygen Delivery Room Air 06/08/24 16:27 Reviewed Medical Decision Making MDM Narrative Medical decision making narrative: Patient sitting comfortably in exam room. Nontoxic, vitals stable. Patient in no acute distress Patient presents with for concerns for both a UTI and for a kidney stone. Patient reports that she has had both and the symptoms are very similar. Patient urine does show probability of a UTI. Does have blood, leukocytes. Also discussed the importance of drinking plenty of fluids such as water or Gatorade. Avoiding sweet tea which she drinks a large quantity of. Discussed again with patient and signs and symptoms of proceed to the emergency room. We cannot rule out that she does not have a kidney stone. Encourage use Of Tylenol. Discharge instructions reviewed with patient, as well as provided in writing per nursing staff. The instructions also include specific and strict return/GO TO THE ER as well as f/u information. All questions have been answered, and the patient deny any further questions with discharge and discharge plan. Some parts of this dictation were generated by voice recognition software and may contain typographical and/or grammatical inaccuracies. Differential Diagnosis Differential Diagnosis: Muscle strain, pain, UTI, kidney stone Medical Records Medical records reviewed: Yes I reviewed the external patient's medical records. Vital Signs Vital Signs: Vital Signs Temperature 98.0 F 06/08/24 16:27 Pulse Rate 111 H 06/08/24 16:27 Respiratory Rate 18 06/08/24 16:27 Blood Pressure 139/78 06/08/24 16:27 Pulse Oximetry 99 06/08/24 16:27 Oxygen Delivery Room Air 06/08/24 16:27 Temperature 98.0 F 06/08/24 16:27 Pulse Rate 111 H 06/08/24 16:27 Respiratory Rate 18 06/08/24 16:27 Blood Pressure 139/78 06/08/24 16:27 Pulse Oximetry 99 06/08/24 16:27 Oxygen Delivery Room Air 06/08/24 16:27 Reviewed Lab Data Lab results reviewed: Yes I reviewed the patient's lab results. Labs: Lab Results 06/08/24 Range/Units 16:59 POC Urine Color Dark POC Urine Clarity Cloudy POC Urine pH 5.5 POC Ur Specif Morrice 1.030 POC Urine Protein 2+ (Negative) POC Ur Glucose (UA) Negative (Negative) POC Urine Ketones 1+ (Negative) POC Urine Blood 1+ (Negative) POC Urine Nitrite Negative (Negative) POC Urine Bilirubin 2+ (Negative) POC Urine Urobilinogen 1.0 POC U Leukocyte Esteras Trace (Negative) Reviewed Critical Care Time Critical Care Time Critical Care Time: No Discharge Plan Discharge Clinical Impression: UTI (urinary tract infection) Qualifiers: Urinary tract infection type: site unspecified Hematuria presence: with hematuria Qualified Code(s): N39.0 - Urinary tract infection, site not specified Low back pain Qualifiers: Chronicity: acute Back pain laterality: right Sciatica presence: without sciatica Qualified Code(s): M54.50 - Low back pain, unspecified Patient Disposition: Home, Self-Care Condition: Stable Instructions: Antibiotic Form, Urinary Tract Infection in Women (DC) Additional Instructions: Take antibiotic as prescribed Drink water at least 60-80 oz per day. Reduce the amount of sweet tea you drink. Take Tylenol as needed for pain For new or worsening symptoms go directly to the emergency room Patient Language: Nepali Prescriptions: New cephalexin 500 mg capsule 500 mg PO Q12H Qty: 10 0RF No Action albuterol sulfate [ProAir HFA] 90 mcg/actuation HFA aerosol inhaler 2 puff INHALATION Q4-6H PRN (Reason: shortness of breath or wheezing) Qty: 8.5 3RF glucose [Dex4 Glucose] 4 gram tablet,chewable 4 g PO Q15M PRN (Reason: hypoglycemia) Qty: 30 0RF Rx Instructions: until symptoms of low blood sugar are controlled cholecalciferol (vitamin D3) 1,250 mcg (50,000 unit) tablet 1,250 mcg PO WEEKLY Qty: 14 3RF metoprolol succinate 25 mg tablet extended release 24 hr PO (DME) Dexcom G7 Sensor Device See Rx Instructions .Route Qty: 9 3RF Rx Instructions: As directed metoclopramide HCl [Reglan] 10 mg tablet 10 mg PO Q6H PRN (Reason: nausea and vomiting) Qty: 30 1RF triamcinolone acetonide 0.1 % cream 1 applic topical TID PRN (Reason: Rash) montelukast 10 mg tablet 10 mg PO HS Rx Instructions: TAKE 1 TABLET BY MOUTH EVERY DAY estradiol [Estrace] 0.01 % (0.1 mg/gram) cream 1 g vaginal DAILY Qty: 42.5 1RF Rx Instructions: apply topically daily sertraline 100 mg tablet 100 mg PO BID Qty: 180 3RF armodafinil 150 mg tablet 150 mg PO QAM PRN (Reason: Hypersomnia) Qty: 30 0RF Baqsimi 3 mg/actuation spray,non-aerosol See Rx Instructions .ROUTE .COMPLEX PRN (Reason: hypoglycemia) Qty: 1 1RF Dose Instruction: 3 MG INTRANASALLY ONCE NEEDED FOR HYPOGLYCEMIA A SINGLE DOSE Rx Instructions: 3 MG INTRANASALLY ONCE NEEDED FOR HYPOGLYCEMIA A SINGLE DOSE PRN; aripiprazole 10 mg tablet See Rx Instructions .ROUTE .COMPLEX Qty: 90 1RF Dose Instruction: TAKE 1 TABLET BY MOUTH EVERY DAY Rx Instructions: TAKE 1 TABLET BY MOUTH EVERY DAY amitriptyline 10 mg tablet 10 mg PO QHS Qty: 90 1RF (DME) Dexcom G7 Sensor Device See Rx Instructions .Route Qty: 10 3RF Rx Instructions: As directed clopidogrel 75 mg tablet See Rx Instructions .ROUTE .COMPLEX Qty: 90 3RF Dose Instruction: TAKE 1 TABLET BY MOUTH EVERY DAY Rx Instructions: TAKE 1 TABLET BY MOUTH EVERY DAY rosuvastatin 40 mg tablet See Rx Instructions .ROUTE .COMPLEX Qty: 90 0RF Dose Instruction: TAKE 1 TABLET BY MOUTH AT BEDTIME Rx Instructions: TAKE 1 TABLET BY MOUTH AT BEDTIME Follow-up/Referrals: Bacilio Cardona MD [Primary Care Provider] - 1 Week ([facility] follow up) Stand Alone Forms: Work/School Release IP Time of Disposition: 17:25
[2024-06-08 17:08] LABS: EDUAAPPEAR Cloudy; EDUABILI 2+ (Negative); EDUABLOOD 1+ (Negative); EDUACOLOR1 Dark; EDUAGLUCOSE Negative (Negative); EDUAKETONE 1+ (Negative); EDUALEUKO Trace (Negative); EDUANITRATE Negative (Negative); EDUAPH 5.5; EDUAPROTEIN 2+ (Negative)
== END 2024-06-08 17:31 | disposition home or self-care (01) ==
PROVIDERS: Emergency Provider Nurse Practitioner; PCP Family Medicine
DX: N39.0 Urinary tract infection, site not specified (principal); M54.50 Low back pain, unspecified; I25.10 Atherosclerotic heart disease of native coronary artery without angina pectoris; I10 Essential (primary) hypertension; E78.2 Mixed hyperlipidemia; G47.419 Narcolepsy without cataplexy; E66.9 Obesity, unspecified; Z68.26 Body mass index [BMI] 26.0-26.9, adult; Z98.84 Bariatric surgery status
CPT/HCPCS: 81003; 87086; 99213; G0463

== ENCOUNTER 2024-09-23 15:12 | Outpatient (CLI) | payer OTHER, SELFPAY ==
--- NOTE | ~2024-09-23 | CT_ITS ---
CLINICAL INDICATION: Generalized abdominal pain with melena COMPARISON: 08/29/2022. TECHNIQUE: Multiple contiguous axial images of the abdomen and pelvis were performed without the admi nistration of intravenous contrast The dose-length product (DLP) was 676.48 mGy-cm. Automated exposure control and iterative reconstruction technique were employed. FINDINGS/OBSERVATIONS: Visualized lower thorax: The bilateral lung bases are clear. The heart is of normal size, without pericardial effusion. Small hiatal hernia is present. Liver: A rounded focus of fluid attenuation is identified within the caudal-most portion of segment 4 of the liver, demonstrating an interval change from 08/29/2022. This abnormality measures 17 x 28 x 20 mm (anterior to posterior x medial to lateral x cranial to cau joseph dimension). The remainder of the liver otherwise demonstrates homogeneous attenuation and is not enlarged. Gallbladder and biliary system: The gallbladder is only minimally distended, and otherwise unremarkable. Pancreas: Limited evaluation of the pancreas secondary to the lack of intravenous contrast. Spleen: The spleen demonstrates homogeneous attenuation and is not enlarged. The liver Kidneys: The bilateral kidneys are unremarkable, without hydronephrosis or renal calculi. Adrenal glands: Unremarkable. Gastrointestinal tract: Postoperative change within the upper abdomen, unchanged from prior. Fecal stasis within the colon. No significant diverticulosis is appreciated. 14 x 19 mm focus of decreased attenuation within the distal stomach, just before the level of the pyl orus which may represent a gastric ulcer for which direct visualization is suggested. Appendix: The appendix is of normal caliber (axial series, images 91 through 106 ). Vasculature: Unremarkable. Lymph nodes: Limited evaluation without intravenous contrast. Pelvic structures: The bladder is decompressed, limiting its evaluation. The uterus is anteverted and anteflexed and nodular in contour with multiple calcifications suggestin g fibroid disease. Body wall and musculoskeletal: Degenerative disease within the lumbosacral spine, most prominent at the level of L5/S1 with osteophy te formation, disc space narrowing, endplate changes and vacuum phenomenon. No acute fracture. No lytic or blastic lesions. IMPRESSION: Interval development of a rounded focus of fluid attenuation within the caudal-most portion of segmen t 4 of the liver, a common place to see focal fatty sparing. However, the liver does not demonstrate significant fatty infiltration. Focused ultrasound is recommended for further evaluation, when the pa tient is clinically able. This abnormality lies medial to the fundus of the gallbladder and immediately beneath the right later al rectus muscle. Likely easily visualized with ultrasound. Findings within the distal stomach which may represent gastric ulcer disease for which direct visuali zation is recommended. Reviewed, dictated and finalized at location A. IMPRESSION: Interval development of a rounded focus of fluid attenuation within the caudal- most portion of segment 4 of the liver, a common place to see focal fatty spari ng. However, the liver does not demonstrate significant fatty infiltration. Foc used ultrasound is recommended for further evaluation, when the patient is clin ically able. This abnormality lies medial to the fundus of the gallbladder and immediately b eneath the right lateral rectus muscle. Likely easily visualized with ultrasoun d. Findings within the distal stomach which may represent gastric ulcer disease fo r which direct visualization is recommended.
== END 2024-09-23 15:13 | disposition home or self-care (01) ==
LOC: GOSHIMG 15:12
PROVIDERS: PCP Student in an Organized Health Care Education/Training Program; Visit Provider Student in an Organized Health Care Education/Training Program
DX: R93.5 Abnormal findings on diagnostic imaging of other abdominal regions, including retroperitoneum (principal); R10.9 Unspecified abdominal pain; K92.1 Melena; Z87.442 Personal history of urinary calculi
CPT/HCPCS: 74176

== ENCOUNTER 2024-09-23 15:30 | Outpatient (CLI) | payer OTHER, SELFPAY ==
--- OUTSIDE RECORDS SUMMARY | 2024-09-23 15:33 | XMS_ITS ---
Author Organization Unknown Medications Medication Instructions Effective Dates (start - stop) Status rosuvastatin calcium 40 MG O ral Tablet [id number]:00:00.000+00:0 0 - Completed montelukast 10 MG Oral Tablet 17-09-28:00:00.000+00:00 - Completed armodafinil 150 MG Oral Tablet 2 [id number]:00:00.000+00:00 - Completed armodafinil 150 MG Oral Tablet 2 [id number]:00:00.000+00:00 - Completed clopidogrel 75 MG Oral Tablet 18-04-18:00:00.000+00:00 - Completed sertraline 100 MG Oral Tablet 17-09-28:00:00.000+00:00 - Completed 24 HR metoprolol succinate 5 0 MG Extended Release Oral Tablet [id number]:00:00.000+0 0:00 - Completed armodafinil 150 MG Oral Tablet 2 [id number]:00:00.000+00:00 - Completed amitriptyline hydrochloride 10 MG Oral Tablet [id number]:00:00.000+00:0 0 - Completed montelukast 10 MG Oral Tablet 20-06-06:00:00.000+00:00 - Completed aripiprazole 10 MG Oral Tablet 2 [id number]:00:00.000+00:00 - Completed 24 HR metoprolol succinate 5 0 MG Extended Release Oral Tablet [id number]:00:00.000+0 0:00 - Completed armodafinil 150 MG Oral Tablet 2 [id number]:00:00.000+00:00 - Completed sertraline 100 MG Oral Tablet 20 17-01-05:00:00.000+00:00 - Completed amitriptyline hydrochloride 10 MG Oral Tablet [id number]:00:00.000+00:0 0 - Completed 24 HR metoprolol succinate 5 0 MG Extended Release Oral Tablet [id number]:00:00.000+0 0:00 - Completed amitriptyline hydrochloride 10 MG Oral Tablet [id number]:00:00.000+00:0 0 - Completed armodafinil 150 MG Oral Tablet 2 [id number]:00:00.000+00:00 - Completed clopidogrel 75 MG Oral Tablet [...] rosuvastatin calcium 40 MG O ral Tablet [id number]:00:00.000+00:0 0 - Completed - [id number]:00 :00.000+00:00 - Completed rosuvastatin calcium 40 MG O ral Tablet [id number]:00:00.000+00:0 0 - Completed sumatriptan 100 MG Oral Tablet 256-26-91A28:00:00.000+00:00 - Completed armodafinil 150 MG Oral Tablet [id number]:00:00.000+00:00 - Completed rosuvastatin calcium 40 MG O ral Tablet [id number]:00:00.000+00:0 0 - Completed aripiprazole 10 MG Oral Tablet 2 375-63-57K42:00:00.000+00:00 - Completed 0.5 ML varicella zoster viru s glycoprotein E, recombinant 0.1 MG/ML Injection [Shingrix] [id number]:00:00.000+00: 00 - Completed aripiprazole 10 MG Oral Tablet 2 [id number]:00:00.000+00:00 - Completed aripiprazole 10 MG Oral Tablet 2 358-35-90K05:00:00.000+00:00 - Completed rosuvastatin calcium 40 MG O ral Tablet [id number]:00:00.000+00:0 0 - Completed pantoprazole 40 MG Delayed Release Oral Tablet [id number]:00:00.000+00:0 0 - Completed - [id number]:00 :00.000+00:00 - Completed [id number] 200 ACTUAT albuter ol 0.09 MG/ACTUAT Metered Dose Inhaler [id number]:00:00.000+00:0 0 - Completed amoxicillin 500 MG Oral Capsule [id number]:00:00.000+00:00 - Completed [id number] 200 ACTUAT albuter ol 0.09 MG/ACTUAT Metered Dose Inhaler [id number]:00:00.000+00:0 0 - Completed acarbose 25 MG Oral Tablet :00:00.000+00:00 - Completed estradiol 0.1 MG/ML Vaginal Cream [id number]:00:00.000+00:00 - Completed acarbose 25 MG Oral Tablet :00:00.000+00:00 - Completed triamcinolone acetonide 1 MG /ML Topical Cream [id number]:00:00.000+00:0 0 - Completed acarbose 100 MG Oral Tablet 2022:00:00.000+00:00 - Completed estradiol 0.1 MG/ML Vaginal Cream 0926-27-00G17:00:00.000+00:00 - Completed acarbose 50 MG Oral Tablet 07-12T00:00:00.000+00:00 - Completed glucagon 3 MG Nasal Powder [Baqsimi] [id number]:00:00.000+00:0 0 - Completed acarbose 25 MG Oral Tablet 04-30T00:00:00.000+00:00 - Completed triamcinolone acetonide 1 MG /ML Topical Cream [id number]:00:00.000+00:0 0 - Completed Patient Care team information Name Category Status Period Participants - - Proposed period not known -
--- OUTSIDE RECORDS SUMMARY | 2024-09-23 15:33 | XMS_ITS | Clinical Summary ---
Author Organization [facility] Address [address] [place] [phone] Phone Care Team Providers Care Aircraft Loadmaster Superintendent Name Role Phone Unavailable Primary Care Provider Unavailabl e Medications clonazePAM (KlonoPIN) 0.5 MG tablet 1 tab/cap [...] Calculus of kidney 09/04/2014 Osteoarthritis 09/04/2014 Immunizations Immunization Administration Dates Next Due Influenza TIV (IM) 02/14/2015 Family History Medical History Relation Comments Hypertensive disorder Father Malignant neoplastic disease Father Coronary arteriosclerosis Mother Hypertensive disorder Mother Diabetes mellitus Relative Kidney stone Relative Kidney disease Neg Hx Relation Status Comments Father Mother Relative Social History Tobacco Use Types Packs/Day Years Used Date Smoking Tobacco: Never Assessed Comments Unknown Sex and Gender Information Value Date Recorded Sex Assigned at Not on file Legal Sex Female 8:13 AM [facility] Gender Identity Not on file Sexual Orientation [...] 12:01 AM CDT Height 160 cm (5' 3) 02/14/2015 12:01 AM CDT Body Mass Index 46.94 02/14/2015 12:01 AM CDT Plan of Treatment Not on file
--- OUTSIDE RECORDS SUMMARY | 2024-09-23 15:33 | XMS_ITS | Clinical Summary ---
Author Organization [facility] [employer] Address [address] [place] [address] Care Team Providers Care Compressed Gas Tester Name Role Phone Bacilio Cardona MD Primary Care Provider [phone] Source Comments [facility],non-owned Affiliates and Associated Physician Practices is amultiple site organization consisting of ambulatory clinics and hospital sitesin [place], [place], [place] and [place]. This disclosure is being madepursuant to the Care Everywhere program and may not contain all information available regarding this patient. Last updated 18.[facility] [employer] [facility] Allergies Active Allergy Reactions Criticality Noted Date Comments Aspirin Anaphylaxis,Nausea and/or Vomiting,Swelling High 08/20/2017 Reaction: Nausea, Swelling, Anaphylaxis, Imipramine Hcl Other,Unknown 08/04/2012 nightmares Peanut-Derived Other Medium 04/19/2009 Tomato Other Medium 04/19/2009 Medications * Be aware that medications may not be up to date on this document. Alwaysverify current medications with the patient. albuterol HFA (Proventil; Ventolin; Proair) 108 (90 Base) MCG/ACT inhaler Inhale 2 (two) puffs by mouth every 4 hours as needed for Shortness of Breath 6 Active ARIPiprazole (ABILIFY) 10 MG tablet Take 1 (one) tablet by mouth at bedtime 9 Active montelukast (SINGULAIR) 10 MG tablet Take 1 (one) tablet by mouth every evening 0 Active pantoprazole EC (PROTONIX) 40 MG tablet Take 40 mg by mouth at bedtime 5 Active sertraline (ZOLOFT) 100 MG tablet Take 2 (two) tablets by mouth at bedtime 9 Active triamcinolone acetonide (KENALOG) 0.1 % cream Apply 1 Dose to affected area 2 times daily as needed (rash) 8 Active rosuvastatin (CRESTOR) 40 MG tablet Take 1 (one) tablet by mouth at bedtime 1 Active SUMAtriptan (IMITREX) 100 MG tablet Take 1 (one) tablet by mouth once as needed for Migraine 1 Active clopidogrel (plaVIX) 75 MG tablet Take 1 (one) tablet by mouth once daily Active amitriptyline (ELAVIL) 10 MG tablet 1 Active metoprolol succinate XL 24hr (TOPROL XL) 50 MG tablet Take 1 tablet by mouth once daily 1 Active acarbose (Precose) 25 MG tablet 1 TAB 3 X DAILY- TAKE IT WITH 1ST BITE OF YOUR MEAL W/ BREAKFAST, LUNCH AND DINNER 3 Active Continuous Blood Gluc Industrial Chemist ([employer]) JEF as directed 2 Active Active Problems Problem Noted Date Diagnosed [...] of Binge Drinking Not on file 05/30 Comments No Sex and Gender Information Value Date Recorded Sex Assigned at Female 03/13/2021 8:47 AM [employer]ATION [employer]ER Legal Sex Female 6:17 AM [employer] Gender Identity Female 03/13/2021 8:47 AM [employer] Sexual Orientation Not on file Last Filed [...] 11:48 AM CDT Height 165.1 cm (5' 5) 07/26/2022 11:4 8 AM CDT Body Mass [...] VACCINE (1 of 2) 2020 COVID-19 VACCINE ( - season) 2023 SCREENING FOR DIABETES 04/06/2024 , 07/13/2020, 07/13/2020, Additional history exists DEPRESSION SCREENING 04/28/2024 INFLUENZA VACCINE (Season Ended) 2024 02/14/2015 HIB VACCINE Aged Out No longer eligi ble based on patient's age to complete this topic HPV VACCINE Aged Out No longer eligi ble based on patient's age to complete this topic MENINGOCOCCAL (Group B) VACCINE SHARED DECISION-MAKING Aged Out No longer eligible based on patient's age to complete this topic MENINGOCOCCAL GROUPS A/C/Y/W VACCINE Aged Out No longer eligible based on patient's age to complete this topic Procedures Procedure Name Priority Date/Time Associated Diagnosis Comments COMPREHENSIVE METABOLIC PANEL Routine 04/06/2021 9:53 AM IMMIGRATION LAWYER H/O gastric bypass Dietary counseling and surveillance Other specified intestinal malabsorption Vitamin deficiency History of morbid obesity from Last 3 Months or Most Recently Relevant to Health Maintenance Results * (ABNORMAL) COMPREHENSIVE METABOLIC PANEL (04/06/2021 9:53 AM IMMIGRATION LAWYER) Glucose 60(L) 65 - 99 mg/dL [facility] [...] BLOOD SPECIMEN / Unknown 04/06/2021 9:53 AM IMMIGRATION LAWYER 04/06/2021 Narrative Resulting Agency Comment Lab Testing performed at: [facility] [address] [facility] [id number] Olivia Doyle MANAGED SERVICES CONSULTANT-UPPER DOUBLER LAB - CHEMISTRY ORDERABLE S Final Result [facility] INSURANCE BILL [address] [place] [id number] from Last 3 Months or Most Recently Relevant to Health Maintenance Insurance [employer] SELF PAY NO INSURANCE Member Subscriber Plan / Payer (Ef fective for All Dates) Name:Santhosh Keller Member ID:Not on file Relation to Subscriber:Not on file Name:SANTHOSH KELLER Subscriber ID:Not on file (Home) Address: [address] [place] [id number] Payer ID:Not on file Group ID:Not on file Type:Self Pay Address: [place], [place] Advance Directives * Full Code (Latest Code Status on File) Date Activated Date Inactivated Comments 07/11/2020 3:43 PM 07/13/2020 2:01 PM Care Teams Compressed Gas Tester Relationship Specialty Start Date End Date Bacilio Cardona MD [address] [place] [phone] PCP - General Family Medicine 03/04/19
[2024-09-23 20:20] LABS: Alanine Aminotransferase 20 U/L (6-35); Albumin Level 3.3 g/dL (3.5-5.1); Alkaline Phosphatase 81 U/L (38-126); Anion Gap 3 mmol/L (4-12); Aspartate Amino Transferase 54 U/L (14-36); Bilirubin,Total 0.3 mg/dL (0.2-1.3); Blood Urea Nitrogen 16 mg/dL (7-17); Carbon Dioxide 32 mmol/L (22-30); Chloride 103 mmol/L (98-107); Cholesterol 116 mg/dL (0-200); Estimated Glomerular Filt Rate > 60; Glucose 101 mg/dL (65-110); HDL Direct 53 mg/dL; Potassium 4.1 mmol/L (3.4-5.0); Sodium 138 mmol/L (137-145); Triglycerides 66 mg/dL (<150)
[2024-09-23 20:22] LABS: Basophils Percent Auto 0.5 % (0.2-1.2); Eosinophils Absolute Auto 0.1 K/mm3 (0-0.3); Eosinophils Percent Auto 1.6 % (0-4.4); Hematocrit 25.4 % (37.0-47.0); Hemoglobin 7.8 g/dL (12.0-15.0); Immature Granulocyte Absolute 0.02 K/mm3 (0.00-0.031); Immature Granulocyte Percent A 0.3 % (0-0.5); Immature Platelet Fraction Pct 8.2 % (0.9-11.2); Lymphocytes Absolute Auto 1.36 K/mm3 (0.9-3.2); Lymphocytes Percent Auto 21.2 % (18.3-44.2); Mean Corpuscular HGB Conc 30.7 g/dl (32-36); Mean Corpuscular Hemoglobin 25.9 pg (26-34); Mean Corpuscular Volume 84.4 fl (80-100); Mean Platelet Volume 12.8 fl (7.4-10.4); Monocytes Absolute Auto 0.6 K/mm3 (0.1-0.6); Monocytes Percent Auto 8.7 % (2.6-8.5); Neutrophils Absolute Auto 4.4 K/mm3 (1.3-6.7); Neutrophils Percent Auto 67.7 % (45.5-73.1); Platelet Count Result 160 k/mm3 (150-375); Red Blood Count 3.01 M/mm3 (4.2-5.4); Red Cell Distribution Width 14.3 % (11.5-14.5); White Blood Count 6.4 K/mm3 (4.5-10.0)
[2024-09-23 20:34] LABS: LDL Cholesterol Direct 40 mg/dL
== END 2024-09-23 15:31 | disposition home or self-care (01) ==
LOC: ANHGOSHLAB 15:30
PROVIDERS: PCP Student in an Organized Health Care Education/Training Program; Visit Provider Student in an Organized Health Care Education/Training Program
DX: K92.1 Melena (principal); R10.9 Unspecified abdominal pain; E78.2 Mixed hyperlipidemia; R79.89 Other specified abnormal findings of blood chemistry; R53.83 Other fatigue; R25.1 Tremor, unspecified
CPT/HCPCS: 36415; 80053; 80061; 82607; 84443; 85025; 85055

== ENCOUNTER 2024-09-23 17:33 | Inpatient (IN) | payer OTHER, SELFPAY ==
[2024-09-23] VITALS (8 sets, daily range): BP systolic 122–143; BP diastolic 71–82; PULSE 95–114; RESP 16–24; TEMP 35.9–36.4; O2SAT 95–100; BMI 27.4
--- NOTE | ~2024-09-23 | US_ITS ---
Limited ABDOMINAL ULTRASOUND (Doppler ultrasound interrogation techniques used as needed for this exa m.) Ordering provider: Gavin Gore MD History: . liver anomaly on ct . Comparison: None. FINDINGS: PANCREAS: Normal echotexture and size. PORTAL VEIN: Hepatopedal flow demonstrated. LIVER: Normal size. Echogenic area in the area of concern is suggestive of fatty infiltration measuri ng 2 x 1.8 cm.. perihepatic fluid collections are identified. BILIARY DUCTS: No intra or extrahepatic biliary dilation. Common bile duct measures 5.5 mm in diamete r which is normal for patient's age. GALLBLADDER: Normal. No stones, sludge, gallbladder wall thickening or pericholecystic fluid. Thickness is 1.6 mm. Negative sonographic Connors's sign. FREE FLUID: None visualized within the upper abdomen. IMPRESSION: Echogenic area in the liver measuring 2 x 1.8 cm which is most likely focal fat infiltration. Follow- up advised. Otherwise, normal right upper quadrant ultrasound. Reviewed, dictated and finalized at location A. IMPRESSION: Echogenic area in the liver measuring 2 x 1.8 cm which is most likely focal fat infiltration. Follow-up advised. Otherwise, normal right upper quadrant ultras ound.
--- OUTSIDE RECORDS SUMMARY | 2024-09-23 17:35 | XMS_ITS | Clinical Summary ---
Author Organization [facility] [address] Address [address] [place] [address] Care Team Providers Care Multifocal Button Inspector Name Role Phone Bacilio Cardona MD Primary Care Provider [phone] [phone] Allergies Active Allergy Reactions Criticality Noted Date [...] hypoglycemia. I have referred her to Gladys Oritz in nutrition to discuss a formal dietary [...] dysfunction without heart failure 09/27 Seizure disorder 07/17/2017 Assessment & Plan (07/17/2017 3:11 PM [...] Possible; followed by DR. becky Frausto at [facility].and Dr. Tavares Martin Multiple fractures from sports a nd martial arts Migraines Seizure disorder (HCC) GERD (gastroesophageal reflux disease) Asthma Anxiety Hypertension Hyperlipidemia Family History Medical History Relation Name Comments COPD Father Coronary artery disease Father Factor V Leiden Father Other Father Alive and well; Coronary artery disease Mother Relation Name Status Comments Father (Age 73 yo) of massive MT vs aortic rupture Mother Alive STarted w/ CAD, stents in early 60's, Etoh Social History Tobacco Use Types Packs/Day Years Used Date Smoking Tobacco: Never Smokeless Tobacco: Never Tobacco Cessation:Counseling Given: Not Answered Comments Unknown Sex and Gender Information Value Date Recorded Sex Assigned at Not on file Legal Sex Female 4:09 AM PATHOLOGIST Gender Identity Not on file Sexual Orientation [...] 10:05 AM CDT Height 165.1 cm (5' 5) 11/14/2023 10:05 AM CDT Body Mass Index 39.61 11/14/2023 10:05 AM CDT Plan of Treatment Health Maintenance Due Date Last Done Comments Breast Cancer Screening-Mammogram 1970 Cervical Cancer Screening 1970 Colon Cancer Screening-Colonoscopy 1970 Depression Screening 1970 Hepatitis C Screening 1970 DTaP/Tdap/Td Vaccine (1 - Tdap) 1981 Hepatitis B Screening 1988 Regular Well Visit/Exam 18-64 1988 Pneumococcal vaccine <65 (1 of 2 - PCV) 1989 Zoster Vaccine (1 of 2) 2020 Influenza Vaccine (Season Ended) 2024 12/16/2018, 12/25/2017, 12/17/2016, Additional history exists Insurance [facility] Care Teams Multifocal Button Inspector Relationship Specialty Start Date End Date Bacilio Cardona MD PCP - General 06/26/17
--- OUTSIDE RECORDS SUMMARY | 2024-09-23 17:35 | XMS_ITS ---
Author Organization Unknown Medications Medication Instructions Effective Dates (start - stop) Status rosuvastatin calcium 40 MG O ral Tablet [id number]:00:00.000+00:0 0 - Completed montelukast 10 MG Oral Tablet 17-09-28:00:00.000+00:00 - Completed armodafinil 150 MG Oral Tablet 2 781-27-00N17:00:00.000+00:00 - Completed armodafinil 150 MG Oral Tablet 2 413-92-56D40:00:00.000+00:00 - Completed clopidogrel 75 MG Oral Tablet 18-04-18:00:00.000+00:00 - Completed sertraline 100 MG Oral Tablet 17-09-28:00:00.000+00:00 - Completed 24 HR metoprolol succinate 5 0 MG Extended Release Oral Tablet 1596-83-05O32:00:00.000+0 0:00 - Completed armodafinil 150 MG Oral Tablet 2 642-61-63X63:00:00.000+00:00 - Completed amitriptyline hydrochloride 10 MG Oral Tablet 1682-25-88I92:00:00.000+00:0 0 - Completed montelukast 10 MG Oral Tablet 20-06-06:00:00.000+00:00 - Completed aripiprazole 10 MG Oral Tablet 2 258-19-30Z41:00:00.000+00:00 - Completed 24 HR metoprolol succinate 5 0 MG Extended Release Oral Tablet 4737-65-63S91:00:00.000+0 0:00 - Completed armodafinil 150 MG Oral Tablet 2 599-09-48Z29:00:00.000+00:00 - Completed sertraline 100 MG Oral Tablet 20 17-01-05:00:00.000+00:00 - Completed amitriptyline hydrochloride 10 MG Oral Tablet 7930-38-84J74:00:00.000+00:0 0 - Completed 24 HR metoprolol succinate 5 0 MG Extended Release Oral Tablet 2629-79-02K13:00:00.000+0 0:00 - Completed amitriptyline hydrochloride 10 MG Oral Tablet 8238-12-70I35:00:00.000+00:0 0 - Completed armodafinil 150 MG Oral Tablet 2 959-71-08J90:00:00.000+00:00 - Completed clopidogrel 75 MG Oral Tablet [...] rosuvastatin calcium 40 MG O ral Tablet 3864-44-01V96:00:00.000+00:0 0 - Completed - 9060-88-02O87:00 :00.000+00:00 - Completed rosuvastatin calcium 40 MG O ral Tablet 1419-94-39Q26:00:00.000+00:0 0 - Completed sumatriptan 100 MG Oral Tablet 798-78-68M87:00:00.000+00:00 - Completed armodafinil 150 MG Oral Tablet 816-68-33G39:00:00.000+00:00 - Completed rosuvastatin calcium 40 MG O ral Tablet 0229-63-82T31:00:00.000+00:0 0 - Completed aripiprazole 10 MG Oral Tablet 2 250-12-21T42:00:00.000+00:00 - Completed 0.5 ML varicella zoster viru s glycoprotein E, recombinant 0.1 MG/ML Injection [Shingrix] 7497-79-03L45:00:00.000+00: 00 - Completed aripiprazole 10 MG Oral Tablet 2 621-71-75G03:00:00.000+00:00 - Completed aripiprazole 10 MG Oral Tablet 2 324-68-65M96:00:00.000+00:00 - Completed rosuvastatin calcium 40 MG O ral Tablet 4919-76-36M41:00:00.000+00:0 0 - Completed pantoprazole 40 MG Delayed Release Oral Tablet 8489-01-97Q93:00:00.000+00:0 0 - Completed - 1721-36-18P00:00 :00.000+00:00 - Completed [id number] 200 ACTUAT albuter ol 0.09 MG/ACTUAT Metered Dose Inhaler 8827-37-89V36:00:00.000+00:0 0 - Completed amoxicillin 500 MG Oral Capsule 7422-13-62K85:00:00.000+00:00 - Completed [id number] 200 ACTUAT albuter ol 0.09 MG/ACTUAT Metered Dose Inhaler 0424-13-51Z41:00:00.000+00:0 0 - Completed acarbose 25 MG Oral Tablet :00:00.000+00:00 - Completed estradiol 0.1 MG/ML Vaginal Cream 0083-15-79L70:00:00.000+00:00 - Completed acarbose 25 MG Oral Tablet :00:00.000+00:00 - Completed triamcinolone acetonide 1 MG /ML Topical Cream 8123-51-27R10:00:00.000+00:0 0 - Completed acarbose 100 MG Oral Tablet 2022:00:00.000+00:00 - Completed estradiol 0.1 MG/ML Vaginal Cream 8721-17-98K52:00:00.000+00:00 - Completed acarbose 50 MG Oral Tablet 07-12T00:00:00.000+00:00 - Completed glucagon 3 MG Nasal Powder [Baqsimi] 7539-13-40J22:00:00.000+00:0 0 - Completed acarbose 25 MG Oral Tablet 04-30T00:00:00.000+00:00 - Completed triamcinolone acetonide 1 MG /ML Topical Cream 7923-80-31R56:00:00.000+00:0 0 - Completed Patient Care team information Name Category Status Period Participants - - Proposed period not known -
--- OUTSIDE RECORDS SUMMARY | 2024-09-23 17:35 | XMS_ITS | Referral Summary ---
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
--- OUTSIDE RECORDS SUMMARY | 2024-09-23 17:35 | XMS_ITS | Clinical Summary ---
Author Organization [facility] [employer] Address [address] [place] [address] Care Team Providers Care Churn Driller Name Role Phone Bacilio Cardona MD Primary Care Provider [phone] Source Comments [facility],non-owned Affiliates and Associated Physician Practices is amultiple site organization consisting of ambulatory clinics and hospital sitesin [place], [place], [place] and [place]. This disclosure is being madepursuant to the Care Everywhere program and may not contain all information available regarding this patient. Last updated 18.[facility] [employer] Allergies Active Allergy Reactions Criticality Noted Date [...] AND DINNER 3 Active Continuous Blood Gluc Store Clerk Cashier (Stepsssyle Beto [address] [employer] [employer]) JEF as directed 2 Active Active [...] Sex Assigned at Female 03/13/2021 8:47 AM ADMISSIONS CONSULTANT Legal Sex Female 6:17 AM ADMISSIONS CONSULTANT Gender Identity Female 03/13/2021 8:47 AM ADMISSIONS CONSULTANT Sexual Orientation Not on file Last Filed [...] COMPREHENSIVE METABOLIC PANEL Routine 04/06/2021 9:53 AM ADMISSIONS CONSULTANT H/O gastric bypass Dietary counseling and surveillance Other specified intestinal malabsorption Vitamin deficiency History of morbid obesity from Last 3 Months or Most Recently Relevant to Health Maintenance Results * (ABNORMAL) COMPREHENSIVE METABOLIC PANEL (04/06/2021 9:53 AM ADMISSIONS CONSULTANT) Glucose 60(L) 65 - 99 mg/dL [facility] [...] BLOOD SPECIMEN / Unknown 04/06/2021 9:53 AM ADMISSIONS CONSULTANT 04/06/2021 Narrative Resulting Agency Comment Lab Testing performed at: [facility] [place] [address] [id number] Olivia Doyle [facility]-LITHOGRAPH DESIGN[facility] LAB - CHEMISTRY ORDERABLE S Final Result [facility] INSURANCE BILL [address] [place] [address] from Last 3 Months or Most Recently Relevant to Health Maintenance Insurance [employer] SELF PAY NO INSURANCE Member Subscriber Plan / Payer (Ef fective for All Dates) Name:Santhosh Keller Member ID:Not on file Relation to Subscriber:Not on file Name:SANTHOSH KELLER Subscriber ID:Not on file (Home) Address: [address] [place] [id number] Payer ID:Not on file Group ID:Not on file Type:Self Pay Address: [place], [place] Advance Directives * Full Code (Latest Code Status on File) Date Activated Date Inactivated Comments 07/11/2020 3:43 PM 07/13/2020 2:01 PM Care Teams Churn Driller Relationship Specialty Start Date End Date Bacilio Cardona MD [address] [place] [id number] PCP - General Family Medicine 03/04/19
--- OUTSIDE RECORDS SUMMARY | 2024-09-23 17:35 | XMS_ITS | Clinical Summary ---
Author Organization [facility] Address [address] [place] [address] Phone Care Team Providers Care Patternmaker Plaster Name Role Phone Unavailable Primary Care Provider [...] on file Legal Sex Female 8:13 AM [facility] Gender Identity Not on file [...]
--- NOTE | 2024-09-23 17:41 | ED.GENADULT ---
HPI - General Adult General Chief complaint: Unspecified <Komal Francis PA-C - Last Filed: 09/24/24 11:10> Stated complaint: mass by liver, bleeding in the belly <Komal Francis PA-C - Last Filed: 09/24/24 11:10> Time Seen by Provider: 09/23/24 17:42 <Komal Francis PA-C - Last Filed: 09/24/24 11:10> Focused HPI: This is a 53 year old female that presents to the ER for dark stools. Ongoing over the last couple of days. She takes Clopidogrel daily. Sent by her PCP for abnormal outpatient CT scan. Reports a possible gastric ulcer was seen. No previous history of GI bleeding. GENERAL: Well-appearing, well-nourished, and in no acute distress. HEAD: Normocephalic, atraumatic. CHEST: Clear to auscultation. ?No respiratory distress. HEART: Regular rate and rhythm.? NEURO: ?Alert and oriented x3. Patient screened in triage and initial orders placed.? ?Additional care and disposition to be based upon?diagnostic testing and treatment. <Komal Francis PA-C - Last Filed: 09/24/24 11:10> History of Present Illness HPI narrative: For the HPI above. Patient had an outpatient evaluation for this today and was having a CT scan that shows gastric ulcer disease as well as a incidental finding in the liver. Patient was referred to the ER for evaluation. She states she has no history of GI bleeding, Parag-en-Y gastric bypass several years ago without any complications. No history of GI bleeding to her knowledge. Recent colonoscopy less than [address] Sesay. <Gavin Gore MD - Last Filed: 09/24/24 06:48> Related Data Home medications: Home Medications ?Medication ?Instructions ?Recorded ?Confirmed ?Last Taken ?Type metoprolol succinate 25 mg 25 mg PO DAILY 03/19/24 09/23/24 09/22/24 History tablet,extended release 24 hr Alive Women's 50 Plus Gummy 2 gummy PO DAILY 09/23/24 09/23/24 09/22/24 History sertraline 100 mg tablet 200 mg PO DAILY 09/23/24 09/23/24 09/22/24 History <Komal Francis PA-C - Last Filed: 09/24/24 11:10> Allergies/adverse reactions: Allergies Allergy/AdvReac Type Severity Reaction Status Date / Time diclofenac Allergy Severe Kidneys Verified 09/23/24 13:43 shut down gabapentin Allergy Severe KIDNEY Verified 09/23/24 13:43 ISSUES tomato Allergy Mild Hives Verified 09/23/24 13:43 aspirin AdvReac Intermediate Fever Verified 09/23/24 13:43 imipramine AdvReac Intermediate nightmares Verified 09/23/24 13:43 nut - unspecified AdvReac Intermediate Gastrointestinal Verified 09/23/24 13:43 Upset peanut AdvReac Intermediate Gastrointestinal Verified 09/23/24 13:43 Upset sweet potato AdvReac Intermediate Gastrointestinal Verified 09/23/24 13:43 Upset <Komal Francis PA-C - Last Filed: 09/24/24 11:10> Review of Systems Review of Systems: As reviewed above in HPI <Gavin Gore MD - Last Filed: 09/24/24 06:48> [facility] Past Medical History Medical History: Medical History Coronary arteriosclerosis in algaaciq artery no stent due to asa intolerance, using plavix HTN (hypertension) Obesity (BMI 35.0-39.9 without comorbidity) Mixed hyperlipidemia Narcolepsy without cataplexy <Komal Francis PA-C - Last Filed: 09/24/24 11:10> Surgical History Surgical History: Surgical History Gastric bypass status for obesity <Komal Francis PA-C - Last Filed: 09/24/24 11:10> Family History Family History: Family History Grandparent Family history of malignant neoplasm of breast Father Family history of arthritis Mother Family history of arthritis Other Cerebrovascular accident Diabetes mellitus Family history of allergic disorder Family history of cardiovascular disease Family history of elevated blood lipids Family history of kidney disease Family history of malignant neoplasm Family history of tuberculosis Hypertension <Komal Francis PA-C - Last Filed: 09/24/24 11:10> Social History Social History: Social History Smoking status: Never smoker Second hand tobacco smoke exposure: No Alcohol intake: never Substance use: never Substance use type: does not use Do You Feel Safe in your Home?: Yes Lack of Transportation: No Lack of Food: Never True Current Housing: I Have Housing Concerned About Future Housing: No Difficulty Paying Gas/Electric Bills: No Difficulty Paying for Meds: No Currently Unemployed: No Education: Associate Degree Difficulty w/ Childcare or Family Care: No Living arrangements: with family Gender identity (if verbalized by the patient): Female Spiritual care concerns: No <Komal Francis PA-C - Last Filed: 09/24/24 11:10> Exam Narrative: GENERAL: [Well-appearing, well-nourished, and in no acute distress.] HEAD: [Normocephalic, atraumatic.] EYES: [PERRLA and EOMI.] ENT: Nares clear, no rhinorrhea or epistaxis. Mucous membranes moist. NECK: Supple. CHEST: [Clear to auscultation. No respiratory distress.] HEART: Tachycardic rate. No murmur heard. [Normal peripheral pulses.] ABDOMEN: [Soft, nondistended], mildly tender to palpation in the epigastrium, no signs of peritonitis, [No rigidity or guarding] EXTREMITIES: Normal range of motion. [No edema.] SKIN: Warm, dry, no rash. NEURO: [No focal deficits]. Alert and oriented [x3.] PSYCH: [Normal mood and affect.] <Gavin Gore MD - Last Filed: 09/24/24 06:48> Course Vital Signs Vital signs: Vital Signs Temperature 96.6 F L 09/23/24 17:40 Pulse Rate 105 H 09/23/24 17:40 Respiratory Rate 20 09/23/24 17:40 Blood Pressure 143/82 H 09/23/24 17:40 Pulse Oximetry 100 09/23/24 17:40 Temperature 96.4 F L 09/24/24 02:46 Pulse Rate 74 09/24/24 04:00 Respiratory Rate 16 09/24/24 02:46 Blood Pressure 109/58 L 09/24/24 02:46 Pulse Oximetry 95 09/24/24 08:27 Oxygen Delivery Room Air 09/24/24 08:27 <Komal Francis PA-C - Last Filed: 09/24/24 11:10> Vital Signs Temperature 96.6 F L 09/23/24 17:40 Pulse Rate 105 H 09/23/24 17:40 Respiratory Rate 20 09/23/24 17:40 Blood Pressure 143/82 H 09/23/24 17:40 Pulse Oximetry 100 09/23/24 17:40 Temperature 96.4 F L 09/24/24 02:46 Pulse Rate 74 09/24/24 04:00 Respiratory Rate 16 09/24/24 02:46 Blood Pressure 109/58 L 09/24/24 02:46 Pulse Oximetry 95 09/24/24 08:27 Oxygen Delivery Room Air 09/24/24 08:27 <Gavin Gore MD - Last Filed: 09/24/24 06:48> Medical Decision Making MDM Narrative Medical decision making narrative: 53-year-old female with history of coronary artery disease, hypertension, gastric bypass with Parag-en-Y procedure several years ago. Recent colonoscopy last year that showed some internal hemorrhoids and polyps. She presents today with 5-6 days of dark melanotic stools, abdominal pain nauseousness. She has no history of GI bleeding to her knowledge and had an outpatient scan and workup done that showed gastric ulcer potentially on the CT scan as well as incidental liver findings. She was referred to the emergency department for evaluation. On initial encounter she is tachycardic with a heart rate in the 115 range, normal blood pressure 143/82, no hypoxia, fever. She has a mildly tender abdomen. Her melanotic stools and workup on outpatient basis suspect acute versus slow upper GI bleed, low suspicion lower GI bleed. CT scan was reviewed and given the liver lesion that appears incidentally found we also ordered right upper quadrant ultrasound. Laboratory studies obtained today including CBC, CMP, type and screen, PT, PTT. She was given a L of fluid, Protonix, Reglan, morphine and Zofran. Workup reveals a anemia of 8.3 with no previous anemia in the record and she is normally hemoglobin around 13. Normal platelet count. Normal electrolytes and BUN. Normal creatinine and LFTs. CT scan from earlier shows rounded foci of fluid in the caudal portion liver instantly found, recommends ultrasound evaluation. This was ordered. Findings with the distal stomach consistent with gastric ulcer disease with direct visualization recommended. I spoke with the on-call GI doctor Dr. Marques and relayed the imaging results, clinical exam, melanotic stool finding and concern for urgent upper GI evaluation. Athletics Director agrees and wants patient admitted for endoscopy tomorrow morning. Patient will be made NPO, scheduled H&Hs were ordered as well as Protonix and Zofran/fluids. Awaiting hospitalist discussion for admission to a telemetry monitored bed. Spoke to the hospitalist who accepted the patient to a telemetry monitored bed. Patient remains hemodynamically stable at this time and admission orders placed. <Gavin Gore MD - Last Filed: 09/24/24 06:48> Medical Records Medical records reviewed: Yes I reviewed the external patient's medical records. <Gavin Gore MD - Last Filed: 09/24/24 06:48> Vital Signs Vital Signs: Vital Signs Temperature 96.6 F L 09/23/24 17:40 Pulse Rate 105 H 09/23/24 17:40 Respiratory Rate 20 09/23/24 17:40 Blood Pressure 143/82 H 09/23/24 17:40 Pulse Oximetry 100 09/23/24 17:40 Temperature 96.4 F L 09/24/24 02:46 Pulse Rate 74 09/24/24 04:00 Respiratory Rate 16 09/24/24 02:46 Blood Pressure 109/58 L 09/24/24 02:46 Pulse Oximetry 95 09/24/24 08:27 Oxygen Delivery Room Air 09/24/24 08:27 <Komal Francis PA-C - Last Filed: 09/24/24 11:10> Vital Signs Temperature 96.6 F L 09/23/24 17:40 Pulse Rate 105 H 09/23/24 17:40 Respiratory Rate 20 09/23/24 17:40 Blood Pressure 143/82 H 09/23/24 17:40 Pulse Oximetry 100 09/23/24 17:40 Temperature 96.4 F L 09/24/24 02:46 Pulse Rate 74 09/24/24 04:00 Respiratory Rate 16 09/24/24 02:46 Blood Pressure 109/58 L 09/24/24 02:46 Pulse Oximetry 95 09/24/24 08:27 Oxygen Delivery Room Air 09/24/24 08:27 <Gavin Gore MD - Last Filed: 09/24/24 06:48> Lab Data Lab results reviewed: Yes I reviewed the patient's lab results. <Gavin Gore MD - Last Filed: 09/24/24 06:48> Result diagrams: 09/24/24 05:25 09/23/24 17:47 <Komal Francis PA-C - Last Filed: 09/24/24 11:10> Labs: Lab Results 09/23/24 Range/Units 17:47 WBC 5.9 (4.5-10.0) K/mm3 RBC 3.22 L (4.2-5.4) M/mm3 Hgb 8.3 L (12.0-15.0) g/dL Hct 26.8 L (37.0-47.0) % MCV 83.2 (80-100) fl MCH 25.8 L (26-34) pg MCHC 31.0 L (32-36) g/dl RDW 14.2 (11.5-14.5) % Plt Count 183 (150-375) k/mm3 MPV 12.4 H (7.4-10.4) fl Immature Gran % (Auto) 0.5 (0-0.5) % Neut % (Auto) 61.2 (45.5-73.1) % Lymph % (Auto) 27.9 (18.3-44.2) % Sharkey % (Auto) 8.7 H (2.6-8.5) % Eos % (Auto) 1.4 (0-4.4) % Baso % (Auto) 0.3 (0.2-1.2) % Lymph # (Auto) 1.64 (0.9-3.2) K/mm3 Sharkey # (Auto) 0.5 (0.1-0.6) K/mm3 Eos # (Auto) 0.1 (0-0.3) K/mm3 Baso # (Auto) 0.0 (0.0-0.1) K/mm3 Abs Immat Gran (auto) 0.03 (0.00-0.031) K/mm3 Absolute Neuts (auto) 3.6 (1.3-6.7) K/mm3 Absolute Nucleated RBC 0.000 (0.0-0.012) K/mm3 Nucleated RBC % 0.0 (0.0-0.2) % PT 13.5 (11.1-14.7) Seconds INR 1.0 APTT 30.8 (22.3-36.8) Seconds Sodium 137 (137-145) mmol/L Potassium 3.6 (3.4-5.0) mmol/L Chloride 102 (98-107) mmol/L Carbon Dioxide 30 (22-30) mmol/L Anion Gap 5 (4-12) mmol/L BUN 15 (7-17) mg/dL Creatinine 0.81 (0.7-1.0) mg/dL Estim Creat Clear Calc 63 ml/min Estimated GFR > 60 (59 - ) Glucose 109 (65-110) mg/dL Calcium 9.2 (8.4-10.2) mg/dL Total Bilirubin 0.3 (0.2-1.3) mg/dL AST 35 (14-36) U/L ALT 19 (6-35) U/L Alkaline Phosphatase 81 (38-126) U/L Total Protein 7.0 (6.3-8.2) g/dL Albumin 3.6 (3.5-5.1) g/dL Blood Type O Negative Antibody Screen Negative Crossmatch See Detail <Komal Francis PA-C - Last Filed: 09/24/24 11:10> Lab Results 09/23/24 Range/Units 17:47 WBC 5.9 (4.5-10.0) K/mm3 RBC 3.22 L (4.2-5.4) M/mm3 Hgb 8.3 L (12.0-15.0) g/dL Hct 26.8 L (37.0-47.0) % MCV 83.2 (80-100) fl MCH 25.8 L (26-34) pg MCHC 31.0 L (32-36) g/dl RDW 14.2 (11.5-14.5) % Plt Count 183 (150-375) k/mm3 MPV 12.4 H (7.4-10.4) fl Immature Gran % (Auto) 0.5 (0-0.5) % Neut % (Auto) 61.2 (45.5-73.1) % Lymph % (Auto) 27.9 (18.3-44.2) % Sharkey % (Auto) 8.7 H (2.6-8.5) % Eos % (Auto) 1.4 (0-4.4) % Baso % (Auto) 0.3 (0.2-1.2) % Lymph # (Auto) 1.64 (0.9-3.2) K/mm3 Sharkey # (Auto) 0.5 (0.1-0.6) K/mm3 Eos # (Auto) 0.1 (0-0.3) K/mm3 Baso # (Auto) 0.0 (0.0-0.1) K/mm3 Abs Immat Gran (auto) 0.03 (0.00-0.031) K/mm3 Absolute Neuts (auto) 3.6 (1.3-6.7) K/mm3 Absolute Nucleated RBC 0.000 (0.0-0.012) K/mm3 Nucleated RBC % 0.0 (0.0-0.2) % PT 13.5 (11.1-14.7) Seconds INR 1.0 APTT 30.8 (22.3-36.8) Seconds Sodium 137 (137-145) mmol/L Potassium 3.6 (3.4-5.0) mmol/L Chloride 102 (98-107) mmol/L Carbon Dioxide 30 (22-30) mmol/L Anion Gap 5 (4-12) mmol/L BUN 15 (7-17) mg/dL Creatinine 0.81 (0.7-1.0) mg/dL Estim Creat Clear Calc 63 ml/min Estimated GFR > 60 (59 - ) Glucose 109 (65-110) mg/dL Calcium 9.2 (8.4-10.2) mg/dL Total Bilirubin 0.3 (0.2-1.3) mg/dL AST 35 (14-36) U/L ALT 19 (6-35) U/L Alkaline Phosphatase 81 (38-126) U/L Total Protein 7.0 (6.3-8.2) g/dL Albumin 3.6 (3.5-5.1) g/dL Blood Type O Negative Antibody Screen Negative Crossmatch See Detail <Gavin Gore MD - Last Filed: 09/24/24 06:48> Imaging Data Attestation: I personally reviewed and interpreted this imaging study as follows: <Gavin Gore MD - Last Filed: 09/24/24 06:48> Radiologist's impression: CT abdomen/pelvis: IMPRESSION: Interval development of a rounded focus of fluid attenuation within the caudal-most portion of segment 4 of the liver, a common place to see focal fatty sparing. However, the liver does not demonstrate significant fatty infiltration. Focused ultrasound is recommended for further evaluation, when the patient is clinically able. This abnormality lies medial to the fundus of the gallbladder and immediately beneath the right lateral rectus muscle. Likely easily visualized with ultrasound. Findings within the distal stomach which may represent gastric ulcer disease for which direct visualization is recommended. <Komal Francis PA-C - Last Filed: 09/24/24 11:10> Critical Care Time Critical Care Time Critical Care Time: Yes <Gavin Gore MD - Last Filed: 09/24/24 06:48> Total Critical Care Time: 35 <Gavin Gore MD - Last Filed: 09/24/24 06:48> Discharge Plan Discharge Clinical Impression: Acute upper gastrointestinal bleeding <Komal Francis PA-C - Last Filed: 09/24/24 11:10> Patient Disposition: Still a Patient <REBECCA Ivan Last Filed: 09/24/24 11:10> Condition: Stable <REBECCA Ivan Last Filed: 09/24/24 11:10>
[2024-09-23 18:03] LABS: Basophils Percent Auto 0.3 % (0.2-1.2); Eosinophils Absolute Auto 0.1 K/mm3 (0-0.3); Eosinophils Percent Auto 1.4 % (0-4.4); Hematocrit 26.8 % (37.0-47.0); Hemoglobin 8.3 g/dL (12.0-15.0); Immature Granulocyte Absolute 0.03 K/mm3 (0.00-0.031); Immature Granulocyte Percent A 0.5 % (0-0.5); Lymphocytes Absolute Auto 1.64 K/mm3 (0.9-3.2); Lymphocytes Percent Auto 27.9 % (18.3-44.2); Mean Corpuscular Hemoglobin 25.8 pg (26-34); Mean Corpuscular Volume 83.2 fl (80-100); Mean Platelet Volume 12.4 fl (7.4-10.4); Monocytes Absolute Auto 0.5 K/mm3 (0.1-0.6); Monocytes Percent Auto 8.7 % (2.6-8.5); Neutrophils Absolute Auto 3.6 K/mm3 (1.3-6.7); Neutrophils Percent Auto 61.2 % (45.5-73.1); Platelet Count Result 183 k/mm3 (150-375); Red Blood Count 3.22 M/mm3 (4.2-5.4); Red Cell Distribution Width 14.2 % (11.5-14.5); White Blood Count 5.9 K/mm3 (4.5-10.0)
[2024-09-23 18:16] LABS: Prothrombin Time 13.5 Seconds (11.1-14.7)
[2024-09-23 18:17] LABS: Partial Thromboplastin Time 30.8 Seconds (22.3-36.8)
[2024-09-23 18:25] LABS: Alanine Aminotransferase 19 U/L (6-35); Albumin Level 3.6 g/dL (3.5-5.1); Alkaline Phosphatase 81 U/L (38-126); Anion Gap 5 mmol/L (4-12); Aspartate Amino Transferase 35 U/L (14-36); Bilirubin,Total 0.3 mg/dL (0.2-1.3); Blood Urea Nitrogen 15 mg/dL (7-17); Calcium 9.2 mg/dL (8.4-10.2); Carbon Dioxide 30 mmol/L (22-30); Chloride 102 mmol/L (98-107); Estimated CRCL calculation 63 ml/min; Estimated Glomerular Filt Rate > 60; Glucose 109 mg/dL (65-110); Potassium 3.6 mmol/L (3.4-5.0); Sodium 137 mmol/L (137-145)
--- OUTSIDE RECORDS SUMMARY | 2024-09-23 19:41 | XMS_ITS | Clinical Summary ---
Author Organization [facility] [address] Address [address] [place] [address] Care Team Providers Care Dairy Husbandry Worker Name Role Phone Bacilio Cardona MD Primary Care Provider [phone] [phone] Allergies Active Allergy Reactions Criticality Noted Date [...] Possible; followed by DR. becky Frausto at [facility].and Dr. Tavares Martin Multiple fractures from sports a nd martial arts Migraines Seizure disorder (HCC) GERD (gastroesophageal reflux disease) Asthma Anxiety Hypertension Hyperlipidemia Family History Medical History Relation Name Comments COPD Father Coronary artery disease Father Factor V Leiden Father Other Father Alive and well; Coronary artery disease Mother Relation Name Status Comments Father (Age 73 yo) of massive LA vs aortic rupture Mother Alive STarted w/ CAD, stents in early 60's, Etoh Social History Tobacco Use Types Packs/Day Years Used Date Smoking Tobacco: Never Smokeless Tobacco: Never Tobacco Cessation:Counseling Given: Not Answered Comments Unknown Sex and Gender Information Value Date Recorded Sex Assigned at Not on file Legal Sex Female 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
--- OUTSIDE RECORDS SUMMARY | 2024-09-23 19:41 | XMS_ITS | Referral Summary ---
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
--- OUTSIDE RECORDS SUMMARY | 2024-09-23 19:41 | XMS_ITS ---
Author Organization Unknown Medications Medication Instructions Effective Dates (start - stop) Status rosuvastatin calcium 40 MG O ral Tablet [id number]:00:00.000+00:0 0 - Completed montelukast 10 MG Oral Tablet 17-09-28:00:00.000+00:00 - Completed armodafinil 150 MG Oral Tablet 2 806-13-91W07:00:00.000+00:00 - Completed armodafinil 150 MG Oral Tablet 2 558-56-08C98:00:00.000+00:00 - Completed clopidogrel 75 MG Oral Tablet 18-04-18:00:00.000+00:00 - Completed sertraline 100 MG Oral Tablet 17-09-28:00:00.000+00:00 - Completed 24 HR metoprolol succinate 5 0 MG Extended Release Oral Tablet [id number]:00:00.000+0 0:00 - Completed armodafinil 150 MG Oral Tablet 2 061-88-75W20:00:00.000+00:00 - Completed amitriptyline hydrochloride 10 MG Oral Tablet 1461-12-29J70:00:00.000+00:0 0 - Completed montelukast 10 MG Oral Tablet 20-06-06:00:00.000+00:00 - Completed aripiprazole 10 MG Oral Tablet 2 198-72-13B92:00:00.000+00:00 - Completed 24 HR metoprolol succinate 5 0 MG Extended Release Oral Tablet 8278-30-79Y35:00:00.000+0 0:00 - Completed armodafinil 150 MG Oral Tablet 2 682-69-59A31:00:00.000+00:00 - Completed sertraline 100 MG Oral Tablet 20 17-01-05:00:00.000+00:00 - Completed amitriptyline hydrochloride 10 MG Oral Tablet 1951-97-32F15:00:00.000+00:0 0 - Completed 24 HR metoprolol succinate 5 0 MG Extended Release Oral Tablet 3524-31-47O47:00:00.000+0 0:00 - Completed amitriptyline hydrochloride 10 MG Oral Tablet 8089-22-87C03:00:00.000+00:0 0 - Completed armodafinil 150 MG Oral Tablet 2 718-45-06H53:00:00.000+00:00 - Completed clopidogrel 75 MG Oral Tablet [...] rosuvastatin calcium 40 MG O ral Tablet [id number]:00:00.000+00:0 0 - Completed - [id number]:00 :00.000+00:00 - Completed rosuvastatin calcium 40 MG O ral Tablet 4155-35-05V97:00:00.000+00:0 0 - Completed sumatriptan 100 MG Oral Tablet 464-89-18X53:00:00.000+00:00 - Completed armodafinil 150 MG Oral Tablet 837-98-94H19:00:00.000+00:00 - Completed rosuvastatin calcium 40 MG O ral Tablet 9671-92-96H38:00:00.000+00:0 0 - Completed aripiprazole 10 MG Oral Tablet 2 913-80-93S63:00:00.000+00:00 - Completed 0.5 ML varicella zoster viru s glycoprotein E, recombinant 0.1 MG/ML Injection [Shingrix] [id number]:00:00.000+00: 00 - Completed aripiprazole 10 MG Oral Tablet 2 118-35-08C17:00:00.000+00:00 - Completed aripiprazole 10 MG Oral Tablet 2 980-43-77Z97:00:00.000+00:00 - Completed rosuvastatin calcium 40 MG O ral Tablet [id number]:00:00.000+00:0 0 - Completed pantoprazole 40 MG Delayed Release Oral Tablet 8318-13-01D28:00:00.000+00:0 0 - Completed - [id number]:00 :00.000+00:00 - Completed [id number] 200 ACTUAT albuter ol 0.09 MG/ACTUAT Metered Dose Inhaler 6438-82-75T15:00:00.000+00:0 0 - Completed amoxicillin 500 MG Oral Capsule [id number]:00:00.000+00:00 - Completed [id number] 200 ACTUAT albuter ol 0.09 MG/ACTUAT Metered Dose Inhaler 0951-59-83S80:00:00.000+00:0 0 - Completed acarbose 25 MG Oral Tablet :00:00.000+00:00 - Completed estradiol 0.1 MG/ML Vaginal Cream [id number]:00:00.000+00:00 - Completed acarbose 25 MG Oral Tablet :00:00.000+00:00 - Completed triamcinolone acetonide 1 MG /ML Topical Cream 2581-71-51C77:00:00.000+00:0 0 - Completed acarbose 100 MG Oral Tablet 2022:00:00.000+00:00 - Completed estradiol 0.1 MG/ML Vaginal Cream [id number]:00:00.000+00:00 - Completed acarbose 50 MG Oral Tablet 07-12T00:00:00.000+00:00 - Completed glucagon 3 MG Nasal Powder [Baqsimi] [id number]:00:00.000+00:0 0 - Completed acarbose 25 MG Oral Tablet 04-30T00:00:00.000+00:00 - Completed triamcinolone acetonide 1 MG /ML Topical Cream 8905-87-17S50:00:00.000+00:0 0 - Completed Patient Care team information Name Category Status Period Participants - - Proposed period not known -
--- OUTSIDE RECORDS SUMMARY | 2024-09-23 19:41 | XMS_ITS | Clinical Summary ---
Author Organization [facility] Address [address] [place] [address] Phone Care Team Providers Care English Tutor Name Role Phone Unavailable Primary Care Provider [...] on file Legal Sex Female 8:13 AM [facility] Gender Identity Not on file [...]
--- OUTSIDE RECORDS SUMMARY | 2024-09-23 19:41 | XMS_ITS | Clinical Summary ---
Author Organization [facility] Address [address] [place] [address] Care Team Providers Care Lodge Officer Name Role Phone Bacilio Cardona MD Primary Care Provider [phone] Source Comments [facility],non-owned Affiliates and Associated Physician Practices is amultiple site organization consisting of ambulatory clinics and hospital sitesin [place], [place], [place] and [place]. This disclosure is being madepursuant to the Care Everywhere program and may not contain all information available regarding this patient. Last updated 18.[facility] Allergies Active Allergy Reactions Criticality Noted Date [...] AND DINNER 3 Active Continuous Blood Gluc Tank Wagon Driver (mobile mumyle Beto [employer] [place] [employer]) JEF as directed 2 Active Active [...] Sex Assigned at Female 03/13/2021 8:47 AM CORPORATE COUNSEL Legal Sex Female 6:17 AM CORPORATE COUNSEL Gender Identity Female 03/13/2021 8:47 AM CORPORATE COUNSEL Sexual Orientation Not on file Last Filed [...] COMPREHENSIVE METABOLIC PANEL Routine 04/06/2021 9:53 AM CORPORATE COUNSEL H/O gastric bypass Dietary counseling and surveillance Other specified intestinal malabsorption Vitamin deficiency History of morbid obesity from Last 3 Months or Most Recently Relevant to Health Maintenance Results * (ABNORMAL) COMPREHENSIVE METABOLIC PANEL (04/06/2021 9:53 AM CORPORATE COUNSEL) Glucose 60(L) 65 - 99 mg/dL [facility] [...] BLOOD SPECIMEN / Unknown 04/06/2021 9:53 AM CORPORATE COUNSEL 04/06/2021 Narrative Resulting Agency Comment Lab Testing performed at: [facility] [place] [address] [facility] [id number] Olivia Doyle CLARIFICATION OPERATOR-INSIGHTS STRATEGIST LAB - CHEMISTRY ORDERABLE S Final Result [facility] INSURANCE BILL [address] [place] [address] from Last 3 Months or Most Recently Relevant to Health Maintenance Insurance [employer] SELF PAY NO INSURANCE Member Subscriber Plan / Payer (Ef fective for All Dates) Name:Santhosh Keller Member ID:Not on file Relation to Subscriber:Not on file Name:SANTHOSH KELLER Subscriber ID:Not on file (Home) Address: [address] [place] [id number] Payer ID:Not on file Group ID:Not on file Type:Self Pay Address: [place], [place] Advance Directives * Full Code (Latest Code Status on File) Date Activated Date Inactivated Comments 07/11/2020 3:43 PM 07/13/2020 2:01 PM Care Teams Lodge Officer Relationship Specialty Start Date End Date Bacilio Cardona MD [address] [place] [id number] PCP - General Family Medicine 03/04/19
[2024-09-23] MEDS: MORPHINE SULFATE (*CRX) 4 MG/ML INJ IV PUSH (20:09)
[2024-09-23] MEDS: PANTOPRAZOLE SODIUM IV 40 MG VIAL 80 MG IV PUSH (20:09)
[2024-09-23] MEDS: METOCLOPRAMIDE HCL INJ 10 MG/2 ML VIAL 5 MG IV PUSH (20:10)
[2024-09-23] MEDS: LACTATED RINGERS 1,000 ML 999 ML IV CONT (20:10)
[2024-09-23] MEDS: LACTATED RINGERS 1,000 ML 100 ML IV CONT (20:36)
--- NOTE | 2024-09-23 20:38 | P.HP_ITS ---
H&P: HPI History of Present Illness Date/Time: 09/23/24 20:38 Chief Complaint: Dark stools Narrative: This is a 53-year-old female accompanied by her whom she lives with with a history of CAD on Plavix, hypertension, hyperlipidemia, status post gastric bypass in 2021 who presents with complaint of dark stools for 6 days. On 09/22/2024 she presented to office with this complaint with associated nausea and intermittent vomiting, food colored. She has vomiting on and off at baseline due to her bypass She has had black to dark stools, formed. She had CT abdomen pelvis and blood work ordered. Hemoglobin was found a 8.7 which is around her baseline. CT abdomen pelvis demonstrated 14 x 19 mm focus of decreased attenuation within the distal stomach which may represent gastric ulcer. She then presented to ER. Repeat hemoglobin at this time 8.7. Hemodynamic stable. GI consulted from ER. Lactated Ringer's at 100 cc started in addition to 1 L bolus, given Protonix 80 mg IV x1, Zofran, metoclopramide 5 mg IV x1, morphine 4 mg IV x1. She had complained of some generalized abdominal pain. Review of Systems Review of Systems: All systems reviewed & are unremarkable except as noted in HPI and below (HPI) [facility] Past Medical History Medical History Coronary arteriosclerosis in [place] artery no stent due to asa intolerance, using plavix HTN (hypertension) Obesity (BMI 35.0-39.9 without comorbidity) Mixed hyperlipidemia Narcolepsy without cataplexy Surgical History Surgical History Gastric bypass status for obesity Family History Family History Grandparent Family history of malignant neoplasm of breast Father Family history of arthritis Mother Family history of arthritis Other Cerebrovascular accident Diabetes mellitus Family history of allergic disorder Family history of cardiovascular disease Family history of elevated blood lipids Family history of kidney disease Family history of malignant neoplasm Family history of tuberculosis Hypertension Social History Social History Smoking status: Never smoker Second hand tobacco smoke exposure: No Alcohol intake: current Substance use: never Substance use type: does not use Do You Feel Safe in your Home?: Yes Lack of Transportation: No Lack of Food: Never True Current Housing: I Have Housing Concerned About Future Housing: No Difficulty Paying Gas/Electric Bills: No Difficulty Paying for Meds: No Currently Unemployed: No Education: Associate Degree Difficulty w/ Childcare or Family Care: No Living arrangements: with family Gender identity (if verbalized by the patient): Female Spiritual care concerns: No Meds Home Medications and Allergies Home Medications ?Medication ?Instructions ?Recorded ?Confirmed ?Type glucose 4 gram chewable tablet 4 g PO Q15M PRN hypoglycemia #30 03/28/2208/27 Rx (Dex4 Glucose) tabs albuterol sulfate 90 mcg/actuation 2 puff inhalation Q4-6H PRN 04/12/22 09/23/24 Rx aerosol inhaler (ProAir HFA) shortness of breath or wheezing #8.5 grams estradiol 0.01% (0.1 mg/gram) 1 g vaginal DAILY #42.5 grams 12/16/22 09/23/24 Rx vaginal cream (Estrace) armodafinil 150 mg tablet 150 mg PO QAM PRN Hypersomnia #30 05/21/23 09/23/24 Rx tabs cholecalciferol (vitamin D3) 1,250 1,250 mcg PO WEEKLY #14 tabs 08/27/23 09/23/24 Rx mcg (50,000 unit) tablet triamcinolone acetonide 0.1 % 1 applic topical TID PRN Rash 12/30/23 09/23/24 History topical cream blood-glucose sensor (Dexcom G7 #10 ea 03/18/24 09/23/24 Rx Sensor device) blood-glucose sensor (Dexcom G7 #9 ea 03/19/24 09/23/24 Rx Sensor device) metoclopramide HCl 10 mg tablet 10 mg PO Q6H PRN nausea and 03/19/24 09/23/24 Rx (Reglan) vomiting #30 tabs metoprolol succinate 25 mg mg PO 03/19/24 09/23/24 History tablet,extended release 24 hr clopidogrel 75 mg tablet See Rx Instructions .Route 03/31/24 09/23/24 Rx .COMPLEX #90 tabs cephalexin 500 mg capsule 500 mg PO Q12H #10 caps 06/08/24 09/23/24 Rx sertraline 100 mg tablet See Rx Instructions .Route 07/19/24 09/23/24 Rx .COMPLEX #180 tabs glucagon 3 mg/actuation nasal See Rx Instructions .Route 07/27/24 09/23/24 Rx spray (Baqsimi) .COMPLEX PRN hypoglycemia #2 ea montelukast 10 mg tablet See Rx Instructions .Route 08/19/24 09/23/24 Rx .COMPLEX #90 tabs rosuvastatin 40 mg tablet See Rx Instructions .Route 08/19/24 09/23/24 Rx .COMPLEX #90 tabs aripiprazole 10 mg tablet See Rx Instructions .Route 08/23/24 09/23/24 Rx .COMPLEX #90 tabs amitriptyline 10 mg tablet 10 mg PO QHS #90 tabs 08/26/24 09/23/24 Rx Allergies Allergy/AdvReac Type Severity Reaction Status Date / Time diclofenac Allergy Severe Kidneys Verified 09/23/24 13:43 shut down gabapentin Allergy Severe KIDNEY Verified 09/23/24 13:43 ISSUES tomato Allergy Mild Hives Verified 09/23/24 13:43 aspirin AdvReac Intermediate Fever Verified 09/23/24 13:43 imipramine AdvReac Intermediate nightmares Verified 09/23/24 13:43 nut - unspecified AdvReac Intermediate Gastrointestinal Verified 09/23/24 13:43 Upset peanut AdvReac Intermediate Gastrointestinal Verified 09/23/24 13:43 Upset sweet potato AdvReac Intermediate Gastrointestinal Verified 09/23/24 13:43 Upset Vital Signs Vital Signs - 24 hr 09/23/24 17:40 Temperature 96.6 F L Pulse Rate 105 H Respiratory Rate 20 Blood Pressure 143/82 H Pulse Oximetry 100 Exam Const: General: comfortable and no acute distress HENMT: Mouth: Yes moist mucous membranes Eyes: Pupils: Equal, round and reactive pupils present Neck: Neck: supple Resp: Effort & Inspection: normal respiratory effort Auscultation: clear to auscultation bilaterally Cardio: Rate: regular rate Rhythm: regular rhythm GI: Inspection: non-distended GI Palp: Yes Soft to palpation and No Tenderness to palpation present (GI) Other: Hyperactive bowel sounds Neuro: Motor exam (neuro): 5/5 motor strength present throughout Extrem: General: no edema H&P: Results Labs Labs: Short CBC 09/23/24 Range/Units 17:47 WBC 5.9 (4.5-10.0) K/mm3 Hgb 8.3 L (12.0-15.0) g/dL Hct 26.8 L (37.0-47.0) % Plt Count 183 (150-375) k/mm3 BMP 09/23/24 17:47 Sodium 137 Potassium 3.6 Chloride 102 Carbon Dioxide 30 BUN 15 Creatinine 0.81 Glucose 109 Calcium 9.2 Liver Function 09/23/24 Range/Units 17:47 Total Bilirubin 0.3 (0.2-1.3) mg/dL AST 35 (14-36) U/L ALT 19 (6-35) U/L Alkaline Phosphatase 81 (38-126) U/L Albumin 3.6 (3.5-5.1) g/dL Assessment and Plan Assessment and plan (1) Essential (primary) hypertension: Code(s): I10 - Essential (primary) hypertension Status: Acute (2) Coronary arteriosclerosis in [place] artery: Code(s): I25.10 - Atherosclerotic heart disease of [place] coronary artery without angina pectoris Status: Acute (3) Black stool: Code(s): K92.1 - Melena Status: Acute Plan This is a 53-year-old female accompanied by her whom she lives with with a history of CAD on Plavix, hypertension, hyperlipidemia, status post gastric bypass in 2021 who presents with complaint of dark stools for 6 days. On 09/22/2024 she presented to office with this complaint with associated nausea and intermittent vomiting, food color which she does also have since her bypass. She has had black to dark stools, formed. She had CT abdomen pelvis and blood work ordered. Hemoglobin was found a 8.7 which is around her baseline. CT abdomen pelvis demonstrated 14 x 19 mm focus of decreased attenuation within the distal stomach which may represent gastric ulcer. She then presented to ER. Repeat hemoglobin at this time 8.7. Hemodynamic stable. GI consulted from ER. Lactated Ringer's at 100 cc started in addition to 1 L bolus, given Protonix 80 mg IV x1, Zofran, metoclopramide 5 mg IV x1, morphine 4 mg IV x1. She had complained of some generalized abdominal pain. ----- For suspected upper GI bleed, GI will see in consultation and we anticipate EGD. NPO. Continue lactated Ringer's at 100 cc/hour. Morphine for pain control, she is currently comfortable. Hemodynamically stable. Hold Plavix. Continue with Protonix 40 mg IV b.i.d.. Zofran p.r.n.. Metoprolol 5 mg IV q.8 hours has been schedule. Cycle hemoglobin. Pending liver ultrasound to help further delineate abnormal CT findings. Hold NUTRITION SPECIALIST metoprolol, continue to monitor blood pressure. ----- Full code. NPO. Lactated Ringer infusion. SCDs. GI consultation. Hospitalist [facility] Advance Care Plan I have confirmed that the patient's Advanced Care Plan is present, code status is documented, or surrogate decision maker is listed in patient medical record.: Yes Medication Reconciliation I have utilized all available resources to obtain, update and review the patients current medications (includes all prescriptions, OTC, herbals, cannabis, and nutritional supplements).: Yes
--- NOTE | 2024-09-23 22:54 | ADMGEN ---
This patient, Cee Villasenor, was admitted to [address] [place] [address] Room 300-01. Patient/family oriented to hospital policies and general routines including ID bracelet, bed and alarms, visiting hours, pain management, procedures, bathroom and other care routines, personal items, smoking policy, room service/diet, and visiting hours. Information on how to activate the Rapid Response Team has been discussed. Patient/Family are encouraged to report perceived risks to care and to ask questions if they do not understand what they are told or what they should do.
[2024-09-24] VITALS (13 sets, daily range): BP systolic 108–137; BP diastolic 58–83; PULSE 67–108; RESP 16–19; TEMP 35.6–36.8; O2SAT 95–100; BMI 27.4
[2024-09-24 00:19] LABS: Hematocrit 21.2 % (37.0-47.0)
[2024-09-24 00:22] LABS: Hemoglobin 6.6 g/dL (12.0-15.0)
[2024-09-24] MEDS: SODIUM CHLORIDE 0.9% IV 250 ML 30 ML IV CONT (01:05)
[2024-09-24] MEDS: TUBING, BLOOD PLUM PUMP TUBING 1 EACH XX (01:30)
[2024-09-24] MEDS: MORPHINE SULFATE (*CRX) 4 MG/ML INJ IV PUSH ×2 (01:51→21:01)
[2024-09-24 06:07] LABS: Hematocrit 25.9 % (37.0-47.0)
[2024-09-24] MEDS: METOCLOPRAMIDE HCL INJ 10 MG/2 ML VIAL 5 MG IV PUSH ×2 (06:45→21:01)
--- NOTE | 2024-09-24 06:55 | P.CONGI_ITS ---
Assessment and Plan Assessment and plan (1) Acute upper gastrointestinal bleeding: Code(s): K92.2 - Gastrointestinal hemorrhage, unspecified Status: Acute Assessment and Plan: The patient has a not decompensating upper GI bleeding episode, based on clinical grounds and also on the CT scan findings suggesting an ulcer in the gastric pouch. Will continue Protonix IV and perform EGD sometime during the day. GI Consult Note Consult date/time: 09/24/24 06:55 Reason for consult: Melena HPI: Ms. Cee Villasenor is a 53-year-old female with a medical history significant for coronary artery disease, hypertension, and a Parag-en-Y gastric bypass performed in 2021, after which she achieved a 150-pound weight reduction. Since her bypass, she has reported persistent post-prandial discomfort, nausea, and intermittent vomiting, preventing her from tolerating more than two meals per day. She began six days prior to admission with the onset of frequent melena episodes daily, without associated syncope, fatigue, or abdominal pain. Upon admission, her hemoglobin was 8.3 g/dL, and she received one unit of packed red blood cells. Review of Systems 2 Review of Systems: All systems reviewed & are unremarkable except as noted in HPI and below PMFSH Past Medical History Medical History Coronary arteriosclerosis in [place] artery no stent due to asa intolerance, using plavix HTN (hypertension) Obesity (BMI 35.0-39.9 without comorbidity) Mixed hyperlipidemia Narcolepsy without cataplexy Surgical History Surgical History Gastric bypass status for obesity Family History Family History Grandparent Family history of malignant neoplasm of breast Father Family history of arthritis Mother Family history of arthritis Other Cerebrovascular accident Diabetes mellitus Family history of allergic disorder Family history of cardiovascular disease Family history of elevated blood lipids Family history of kidney disease Family history of malignant neoplasm Family history of tuberculosis Hypertension Social History Social History Smoking status: Never smoker Second hand tobacco smoke exposure: No Alcohol intake: never Substance use: never Substance use type: does not use Do You Feel Safe in your Home?: Yes Lack of Transportation: No Lack of Food: Never True Current Housing: I Have Housing Concerned About Future Housing: No Difficulty Paying Gas/Electric Bills: No Difficulty Paying for Meds: No Currently Unemployed: No Education: Associate Degree Difficulty w/ Childcare or Family Care: No Living arrangements: with family Gender identity (if verbalized by the patient): Female Spiritual care concerns: No Meds Home Medications and Allergies Home Medications ?Medication ?Instructions ?Recorded ?Confirmed ?Type glucose 4 gram chewable tablet 4 g PO Q15M PRN hypoglycemia #30 03/28/22 09/23/24 Rx (Dex4 Glucose) tabs albuterol sulfate 90 mcg/actuation 2 puff inhalation Q4-6H PRN 04/12/22 09/23/24 Rx aerosol inhaler (ProAir HFA) shortness of breath or wheezing #8.5 grams armodafinil 150 mg tablet 150 mg PO QAM PRN Hypersomnia #30 05/21/23 09/23/24 Rx tabs cholecalciferol (vitamin D3) 1,250 1,250 mcg PO WEEKLY #14 tabs 08/27/23 09/23/24 Rx mcg (50,000 unit) tablet blood-glucose sensor (Dexcom G7 #10 ea 03/18/24 09/23/24 Rx Sensor device) blood-glucose sensor (Dexcom G7 #9 ea 03/19/24 09/23/24 Rx Sensor device) metoclopramide HCl 10 mg tablet 10 mg PO Q6H PRN nausea and 03/19/24 09/23/24 Rx (Reglan) vomiting #30 tabs metoprolol succinate 25 mg 25 mg PO DAILY 03/19/24 09/23/24 History tablet,extended release 24 hr clopidogrel 75 mg tablet See Rx Instructions .Route 03/31/24 09/23/24 Rx .COMPLEX #90 tabs glucagon 3 mg/actuation nasal See Rx Instructions .Route 07/27/24 09/23/24 Rx spray (Baqsimi) .COMPLEX PRN hypoglycemia #2 ea montelukast 10 mg tablet See Rx Instructions .Route 08/19/24 09/23/24 Rx .COMPLEX #90 tabs rosuvastatin 40 mg tablet See Rx Instructions .Route 08/19/24 09/23/24 Rx .COMPLEX #90 tabs aripiprazole 10 mg tablet See Rx Instructions .Route 08/23/24 09/23/24 Rx .COMPLEX #90 tabs amitriptyline 10 mg tablet 10 mg PO QHS #90 tabs 08/26/24 09/23/24 Rx Alive Women's 50 Plus Gummy 2 gummy PO DAILY 09/23/24 09/23/24 History sertraline 100 mg tablet 200 mg PO DAILY 09/23/24 09/23/24 History Allergies Allergy/AdvReac Type Severity Reaction Status Date / Time diclofenac Allergy Severe Kidneys Verified 09/23/24 13:43 shut down gabapentin Allergy Severe KIDNEY Verified 09/23/24 13:43 ISSUES tomato Allergy Mild Hives Verified 09/23/24 13:43 aspirin AdvReac Intermediate Fever Verified 09/23/24 13:43 imipramine AdvReac Intermediate nightmares Verified 09/23/24 13:43 nut - unspecified AdvReac Intermediate Gastrointestinal Verified 09/23/24 13:43 Upset peanut AdvReac Intermediate Gastrointestinal Verified 09/23/24 13:43 Upset sweet potato AdvReac Intermediate Gastrointestinal Verified 09/23/24 13:43 Upset Vital Signs Vital Signs - 24 hr 09/23/24 17:40 09/23/24 19:46 09/23/24 19:50 Temperature 96.6 F L Pulse Rate 105 H 114 H 108 H Respiratory Rate 20 17 24 H Blood Pressure 143/82 H 128/71 122/78 Pulse Oximetry 100 100 98 Oxygen Delivery 09/23/24 20:17 09/23/24 20:31 09/23/24 20:45 Temperature Pulse Rate Respiratory Rate Blood Pressure Pulse Oximetry 98 100 99 Oxygen Delivery 09/23/24 22:17 09/23/24 22:39 09/23/24 23:37 Temperature 97.6 F Pulse Rate 95 97 Respiratory Rate 17 16 Blood Pressure 127/79 137/75 Pulse Oximetry 98 95 Oxygen Delivery Room Air 09/24/24 00:00 09/24/24 01:30 09/24/24 01:46 Temperature 97.1 F L 96.6 F L Pulse Rate 91 92 81 Respiratory Rate 16 18 Blood Pressure 108/67 121/70 Pulse Oximetry 97 96 Oxygen Delivery 09/24/24 01:46 09/24/24 02:46 09/24/24 04:00 Temperature 96.1 F L 96.4 F L Pulse Rate 85 67 74 Respiratory Rate 16 16 Blood Pressure 109/62 109/58 L Pulse Oximetry 96 98 Oxygen Delivery Exam 2 Const: General: comfortable and no acute distress HENMT: Mouth: Yes moist mucous membranes Eyes: Pupils: Equal, round and reactive pupils present Neck: Neck: supple Resp: Effort & Inspection: normal respiratory effort Auscultation: clear to auscultation bilaterally Cardio: Rate: regular rate Rhythm: regular rhythm GI: Inspection: non-distended GI Palp: Yes Soft to palpation and No Tenderness to palpation present (GI) Other: Hyperactive bowel sounds Neuro: Motor exam (neuro): 5/5 motor strength present throughout Extrem: General: no edema Results Labs 09/24/24 05:25 09/23/24 17:47 Labs: Short CBC 09/23/24 09/23/24 09/24/24 Range/Units 17:47 23:55 05:25 WBC 5.9 (4.5-10.0) K/mm3 Hgb 8.3 L 6.6 L* 8.0 L (12.0-15.0) g/dL Hct 26.8 L 21.2 L 25.9 L (37.0-47.0) % Plt Count 183 (150-375) k/mm3 BMP 09/23/24 17:47 Sodium 137 Potassium 3.6 Chloride 102 Carbon Dioxide 30 BUN 15 Creatinine 0.81 Glucose 109 Calcium 9.2 Liver Function 09/23/24 Range/Units 17:47 Total Bilirubin 0.3 (0.2-1.3) mg/dL AST 35 (14-36) U/L ALT 19 (6-35) U/L Alkaline Phosphatase 81 (38-126) U/L Albumin 3.6 (3.5-5.1) g/dL
[2024-09-24] MEDS: PANTOPRAZOLE SODIUM IV 40 MG VIAL IV PUSH ×2 (08:44→21:01)
--- NOTE | 2024-09-24 10:35 | PM.IMPN ---
Progress Note: A&P Assessment and Plan (1) Coronary arteriosclerosis in [place] artery: Code(s): I25.10 - Atherosclerotic heart disease of [place] coronary artery without angina pectoris Status: Acute Assessment and Plan: Takes CAD for coronary artery calcification because she is allergic to aspirin. Mild ischemia at stress test in 2018 but no prior catheterization reviewed cardiology reviewed clinic note 11/14/2023. Can hold Plavix (2) GI bleed: Code(s): K92.2 - Gastrointestinal hemorrhage, unspecified Status: Acute Assessment and Plan: She reports melena in the week prior to admission last 2 days ago. She has a history of a gastric bypass in 2021 and reports in the last 6 weeks she has been having frequent vomiting, after every meal. This has been a problem last year but had improved with a soft diet and recently worsened again 09/23 Abd US showed Echogenic area in the liver measuring 2 x 1.8 cm which is most likely focal fat infiltration. Follow-up advised. Otherwise, normal right upper quadrant ultrasound. 09/23 CT abd/pelvis Interval development of a rounded focus of fluid attenuation within the caudal-most portion of segment 4 of the liver, a common place to see focal fatty sparing. However, the liver does not demonstrate significant fatty infiltration. Focused ultrasound is recommended for further evaluation, when the patient is clinically able. This abnormality lies medial to the fundus of the gallbladder and immediately beneath the right lateral rectus muscle. Likely easily visualized with ultrasound. Findings within the distal stomach which may represent gastric ulcer disease for which direct visualization is recommended. GI consulted concern for ulcer in the gastric pouch planning EGD today CT also noted Fecal stasis in the colon --started IV ppi continue --follow-up results of EGD --follow-up with surgery Time Spent With Patient Time: 53 minutes Subjective Date/time seen: 09/24/24 10:35 Interval history: Vital signs stable. Blood pressure 109/58 this morning H&H improved overnight 6.6/21.2 up to 12/20.9 this morning GI planning scope. On IV pantoprazole Exam Narrative: General - Awake and alert. No acute distress Eyes - PERRLA, EOM intact ENT - No thrush, No erythema Neck - No noticeable or palpable swelling Lymph Nodes - No lymphadenopathy Cardiovascular - RRR no m/r/g, no JVD Lungs: Clear to auscultation, No wheezing, use of accessory muscles, no crackles Skin - Skin warm and dry, no wounds or rashes Abdomen - Normal bowel sounds, abdomen soft and minimally tender upper abdomen Extremities - No edema, cyanosis or clubbing Musculoskeletal - 5/5 strength, normal range of motion, no swollen or erythematous joints. Neurological ? Alert and oriented x 3, CN 2-12 grossly intact. Psych: Normal mood and affect Objective Data Vital Signs Vital Signs: Vital Signs - 24 hr 09/23/24 17:40 09/23/24 19:46 09/23/24 19:50 Temperature 96.6 F L Pulse Rate 105 H 114 H 108 H Respiratory Rate 20 17 24 H Blood Pressure 143/82 H 128/71 122/78 Pulse Oximetry 100 100 98 Oxygen Delivery 09/23/24 20:17 09/23/24 20:31 09/23/24 20:45 Temperature Pulse Rate Respiratory Rate Blood Pressure Pulse Oximetry 98 100 99 Oxygen Delivery 09/23/24 22:17 09/23/24 22:39 09/23/24 23:37 Temperature 97.6 F Pulse Rate 95 97 Respiratory Rate 17 16 Blood Pressure 127/79 137/75 Pulse Oximetry 98 95 Oxygen Delivery Room Air 09/24/24 00:00 09/24/24 01:30 09/24/24 01:46 Temperature 97.1 F L 96.6 F L Pulse Rate 91 92 81 Respiratory Rate 16 18 Blood Pressure 108/67 121/70 Pulse Oximetry 97 96 Oxygen Delivery 09/24/24 01:46 09/24/24 02:46 09/24/24 04:00 Temperature 96.1 F L 96.4 F L Pulse Rate 85 67 74 Respiratory Rate 16 16 Blood Pressure 109/62 109/58 L Pulse Oximetry 96 98 Oxygen Delivery 09/24/24 08:27 Temperature Pulse Rate Respiratory Rate Blood Pressure Pulse Oximetry 95 Oxygen Delivery Room Air Intake/Output Intake/Output: Intake & Output 09/21/24 09/22/24 09/23/24 09/24/24 23:59 23:59 23:59 23:59 Intake Total 1000 900 Balance 1000 900 Meds/Results Medications: Active Medications Generic Name Dose Route Start Last Admin Trade Name Freq PRN Reason Stop Dose Admin Acetaminophen 650 mg 09/23/24 19:57 Acetaminophen 325 Mg Tablet PO Q4H PRN Mild Pain (1-3) or Fever Lactated Ringer's 1,000 mls @ 100 mls/hr 09/23/24 20:00 09/23/24 20:36 Lr - Lactated Ringers Iv IV CONT 100 mls/hr .Q10H DAMIAN Administration Metoclopramide HCl 5 mg 09/24/24 06:00 09/24/24 06:45 Metoclopramide Hcl Inj 10 Mg/2 Ml Vial IV PUSH 5 mg Q8HR DAMIAN Administration Morphine Sulfate 4 mg 09/23/24 19:57 09/24/24 01:51 Morphine Sulfate (*Crx) 4 Mg/Ml Inj IV PUSH 4 mg Q2H PRN Administration Pain Rated 7-10 Pantoprazole Sodium 40 mg 09/24/24 09:00 09/24/24 08:44 Pantoprazole Sodium Iv 40 Mg Vial IV PUSH 40 mg Q12HR DAMIAN Administration Radiology Results: ITS Impressions Abdomen Ultrasound 09/23/24 20:37 IMPRESSION: Echogenic area in the liver measuring 2 x 1.8 cm which is most likely focal fat infiltration. Follow-up advised. Otherwise, normal right upper quadrant ultrasound. Labs Labs: Laboratory Results - last 24 hr 09/23/24 09/23/24 09/24/24 17:47 23:55 05:25 WBC 5.9 RBC 3.22 L Hgb 8.3 L 6.6 L* 8.0 L Hct 26.8 L 21.2 L 25.9 L MCV 83.2 MCH 25.8 L MCHC 31.0 L RDW 14.2 Plt Count 183 MPV 12.4 H Immature Gran % (Auto) 0.5 Neut % (Auto) 61.2 Lymph % (Auto) 27.9 [place] % (Auto) 8.7 H Eos % (Auto) 1.4 Baso % (Auto) 0.3 Lymph # (Auto) 1.64 [place] # (Auto) 0.5 Eos # (Auto) 0.1 Baso # (Auto) 0.0 Abs Immat Gran (auto) 0.03 Absolute Neuts (auto) 3.6 Absolute Nucleated RBC 0.000 Nucleated RBC % 0.0 PT 13.5 INR 1.0 APTT 30.8 Sodium 137 Potassium 3.6 Chloride 102 Carbon Dioxide 30 Anion Gap 5 BUN 15 Creatinine 0.81 Estim Creat Clear Calc 63 Estimated GFR > 60 Glucose 109 Calcium 9.2 Total Bilirubin 0.3 AST 35 ALT 19 Alkaline Phosphatase 81 Total Protein 7.0 Albumin 3.6 Blood Type O Negative Antibody Screen Negative Crossmatch See Detail Hospitalist MIPS Advance Care Plan I have confirmed that the patient's Advanced Care Plan is present, code status is documented, or surrogate decision maker is listed in patient medical record.: Yes Medication Reconciliation I have utilized all available resources to obtain, update and review the patients current medications (includes all prescriptions, OTC, herbals, cannabis, and nutritional supplements).: Yes
[2024-09-24] MEDS: LACTATED RINGERS 1,000 ML 150 ML IV CONT (13:31)
--- NOTE | 2024-09-24 14:17 | P.PNAN_ITS ---
Anes - Initial Pre Proc Eval Procedure: Operation Date: 09/24/24 14:30 Proposed Procedures p Esophagogastroduodenoscopy - Mitchell Marques MD Date/Time: 09/24/24 14:17 Surgeon: Marce Soto APRN Pre Op Diagnosis: Upper GI bleeding Patient Data Age: 53 Gender: F Height: 1.65 m Weight: 74.8 kg Last Vital Signs Temp 36.3 C L 09/24/24 13:27 Pulse 74 09/24/24 13:27 Resp 17 09/24/24 13:27 BP 135/83 09/24/24 13:27 Pulse Ox 98 09/24/24 13:27 O2 Del Method Room Air 09/24/24 13:27 Allergies Allergy/AdvReac Type Severity Reaction Status Date / Time diclofenac Allergy Severe Kidneys Verified 09/23/24 13:43 shut down gabapentin Allergy Severe KIDNEY Verified 09/23/24 13:43 ISSUES tomato Allergy Mild Hives Verified 09/23/24 13:43 aspirin AdvReac Intermediate Fever Verified 09/23/24 13:43 imipramine AdvReac Intermediate nightmares Verified 09/23/24 13:43 nut - unspecified AdvReac Intermediate Gastrointestinal Verified 09/23/24 13:43 Upset peanut AdvReac Intermediate Gastrointestinal Verified 09/23/24 13:43 Upset sweet potato AdvReac Intermediate Gastrointestinal Verified 09/23/24 13:43 Upset Home Medications ?Medication ?Instructions ?Recorded ?Confirmed ?Type glucose 4 gram chewable tablet 4 g PO Q15M PRN hypoglycemia #30 03/28/22 09/23/24 Rx (Dex4 Glucose) tabs albuterol sulfate 90 mcg/actuation 2 puff inhalation Q4-6H PRN 04/12/22 09/23/24 Rx aerosol inhaler (ProAir HFA) shortness of breath or wheezing #8.5 grams armodafinil 150 mg tablet 150 mg PO QAM PRN Hypersomnia #30 05/21/23 09/23/24 Rx tabs cholecalciferol (vitamin D3) 1,250 1,250 mcg PO WEEKLY #14 tabs 08/27/23 09/23/24 Rx mcg (50,000 unit) tablet blood-glucose sensor (Dexcom G7 #10 ea 03/18/24 09/23/24 Rx Sensor device) blood-glucose sensor (Dexcom G7 #9 ea 03/19/24 09/24/24 Rx Sensor device) metoclopramide HCl 10 mg tablet 10 mg PO Q6H PRN nausea and 03/19/24 09/23/24 Rx (Reglan) vomiting #30 tabs metoprolol succinate 25 mg 25 mg PO DAILY 03/19/24 09/23/24 History tablet,extended release 24 hr clopidogrel 75 mg tablet See Rx Instructions .Route 03/31/24 09/23/24 Rx .COMPLEX #90 tabs glucagon 3 mg/actuation nasal See Rx Instructions .Route 07/27/24 09/23/24 Rx spray (Baqsimi) .COMPLEX PRN hypoglycemia #2 ea montelukast 10 mg tablet See Rx Instructions .Route 08/19/24 09/23/24 Rx .COMPLEX #90 tabs rosuvastatin 40 mg tablet See Rx Instructions .Route 08/19/24 09/23/24 Rx .COMPLEX #90 tabs aripiprazole 10 mg tablet See Rx Instructions .Route 08/23/24 09/23/24 Rx .COMPLEX #90 tabs amitriptyline 10 mg tablet 10 mg PO QHS #90 tabs 08/26/24 09/23/24 Rx Alive Women's 50 Plus Gummy 2 gummy PO DAILY 09/23/24 09/23/24 History sertraline 100 mg tablet 200 mg PO DAILY 09/23/24 09/23/24 History Laboratory Tests 09/23/24 09/23/24 09/24/24 17:47 23:55 05:25 WBC 5.9 K/mm3 (4.5-10.0) RBC 3.22 L M/mm3 (4.2-5.4) Hgb 8.3 L g/dL 6.6 L* g/dL 8.0 L g/dL (12.0-15.0) (12.0-15.0) (12.0-15.0) Hct 26.8 L % 21.2 L % 25.9 L % (37.0-47.0) (37.0-47.0) (37.0-47.0) MCV 83.2 fl (80-100) MCH 25.8 L pg (26-34) MCHC 31.0 L g/dl (32-36) RDW 14.2 % (11.5-14.5) Plt Count 183 k/mm3 (150-375) MPV 12.4 H fl (7.4-10.4) Immature Gran % (Auto) 0.5 % (0-0.5) Neut % (Auto) 61.2 % (45.5-73.1) Lymph % (Auto) 27.9 % (18.3-44.2) [place] % (Auto) 8.7 H % (2.6-8.5) Eos % (Auto) 1.4 % (0-4.4) Baso % (Auto) 0.3 % (0.2-1.2) Lymph # (Auto) 1.64 K/mm3 (0.9-3.2) [place] # (Auto) 0.5 K/mm3 (0.1-0.6) Eos # (Auto) 0.1 K/mm3 (0-0.3) Baso # (Auto) 0.0 K/mm3 (0.0-0.1) Abs Immat Gran (auto) 0.03 K/mm3 (0.00-0.031) Absolute Neuts (auto) 3.6 K/mm3 (1.3-6.7) Absolute Nucleated RBC 0.000 K/mm3 (0.0-0.012) Nucleated RBC % 0.0 % (0.0-0.2) PT 13.5 Seconds (11.1-14.7) INR 1.0 APTT 30.8 Seconds (22.3-36.8) Sodium 137 mmol/L (137-145) Potassium 3.6 mmol/L (3.4-5.0) Chloride 102 mmol/L (98-107) Carbon Dioxide 30 mmol/L (22-30) Anion Gap 5 mmol/L (4-12) BUN 15 mg/dL (7-17) Creatinine 0.81 mg/dL (0.7-1.0) Estim Creat Clear Calc 63 ml/min Estimated GFR > 60 (59 - ) Glucose 109 mg/dL (65-110) Calcium 9.2 mg/dL (8.4-10.2) Total Bilirubin 0.3 mg/dL (0.2-1.3) AST 35 U/L (14-36) ALT 19 U/L (6-35) Alkaline Phosphatase 81 U/L (38-126) Total Protein 7.0 g/dL (6.3-8.2) Albumin 3.6 g/dL (3.5-5.1) Blood Type O Negative Antibody Screen Negative Crossmatch See Detail Patient hx anesthesia problems: none Family hx anesthesia problems: none Results Review: All pre-operative results and documents have been reviewed as part of the pre- operative evaluation. [facility] Past Medical History Medical History Coronary arteriosclerosis in [place] artery no stent due to asa intolerance, using plavix HTN (hypertension) Obesity (BMI 35.0-39.9 without comorbidity) Mixed hyperlipidemia Narcolepsy without cataplexy Surgical History Surgical History Gastric bypass status for obesity Family History Family History Grandparent Family history of malignant neoplasm of breast Father Family history of arthritis Mother Family history of arthritis Other Cerebrovascular accident Diabetes mellitus Family history of allergic disorder Family history of cardiovascular disease Family history of elevated blood lipids Family history of kidney disease Family history of malignant neoplasm Family history of tuberculosis Hypertension Social History Social History Smoking status: Never smoker Second hand tobacco smoke exposure: No Alcohol intake: never Substance use: never Substance use type: does not use Do You Feel Safe in your Home?: Yes Lack of Transportation: No Lack of Food: Never True Current Housing: I Have Housing Concerned About Future Housing: No Difficulty Paying Gas/Electric Bills: No Difficulty Paying for Meds: No Currently Unemployed: No Education: Associate Degree Difficulty w/ Childcare or Family Care: No Living arrangements: with family Gender identity (if verbalized by the patient): Female Spiritual care concerns: No Anes - Eval Final PreProcedure Day of Procedure 09/24/24 14:17 Patient weight: overweight Heart: regular rate and rhythm Lungs: clear to auscultation Airway: Mallampati scale class II Neurological: alert and oriented Last oral intake: >/= 8 hours ASA classification: III Emergent: no Anesthetic plan: proceed Anesthesia type and monitoring: general GIVS and standard monitoring Results Review: All pre-operative results and documents have been reviewed as part of the pre- operative evaluation. Informed Consent: The patient's anesthetic plan and its attendant risks and benefits were discussed with the patient/family/POA. Questions were solicited and answers provided to the satisfaction of the patient/family/POA.
--- NOTE | 2024-09-24 14:32 | S_PTH ---
PATIENT: Cee Villasenor LOC: [id number] U#:[id number] AGE/SX: 53/F ROOM: 300 RE09/23/[address]: Marce Soto APRN : 1970 BED: 01 DIS: 09/26/2024 SPEC #: [id number] RECD: 09/27/24 07:26 STATUS: FLORESITA RESathish #: [id number] RIKA: 09/24/24 14:[address]: Mitchell Marques DEPT: [facility] Surgical RECD BY: Mariah Shin ENTERED: 09/27/24 07:27 SP TYPE: Surgical OTHR DR: MD Bro Tarango APRN Evelyne Thomas, APRN Tissues: A - Gastric Biopsy B - Gastric Biopsy Procedures: Hematoxylin and Eosin Stain Gross and Microscopic Level 4
[2024-09-24] MEDS: LACTATED RINGERS 1,000 ML 100 ML IV CONT (16:09)
[2024-09-24 20:38] LABS: Basophils Percent Auto 0.4 % (0.2-1.2); Eosinophils Absolute Auto 0.1 K/mm3 (0-0.3); Eosinophils Percent Auto 1.8 % (0-4.4); Hematocrit 26.3 % (37.0-47.0); Hemoglobin 8.3 g/dL (12.0-15.0); Immature Granulocyte Absolute 0.01 K/mm3 (0.00-0.031); Immature Granulocyte Percent A 0.2 % (0-0.5); Lymphocytes Absolute Auto 1.33 K/mm3 (0.9-3.2); Lymphocytes Percent Auto 29.6 % (18.3-44.2); Mean Corpuscular HGB Conc 31.6 g/dl (32-36); Mean Corpuscular Hemoglobin 26.1 pg (26-34); Mean Corpuscular Volume 82.7 fl (80-100); Mean Platelet Volume 12.4 fl (7.4-10.4); Monocytes Absolute Auto 0.5 K/mm3 (0.1-0.6); Monocytes Percent Auto 10.7 % (2.6-8.5); Neutrophils Absolute Auto 2.6 K/mm3 (1.3-6.7); Neutrophils Percent Auto 57.3 % (45.5-73.1); Platelet Count Result 149 k/mm3 (150-375); Red Blood Count 3.18 M/mm3 (4.2-5.4); Red Cell Distribution Width 13.8 % (11.5-14.5); White Blood Count 4.5 K/mm3 (4.5-10.0)
[2024-09-24 21:33] LABS: Alanine Aminotransferase 17 U/L (6-35); Albumin Level 2.9 g/dL (3.5-5.1); Alkaline Phosphatase 85 U/L (38-126); Anion Gap 4 mmol/L (4-12); Aspartate Amino Transferase 29 U/L (14-36); Bilirubin,Total 0.3 mg/dL (0.2-1.3); Blood Urea Nitrogen 9 mg/dL (7-17); Calcium 8.9 mg/dL (8.4-10.2); Carbon Dioxide 27 mmol/L (22-30); Chloride 106 mmol/L (98-107); Estimated CRCL calculation 83 ml/min; Estimated Glomerular Filt Rate > 60; Glucose 80 mg/dL (65-110); Sodium 137 mmol/L (137-145)
[2024-09-25] VITALS (10 sets, daily range): BP systolic 105–119; BP diastolic 54–63; PULSE 74–111; RESP 16–24; TEMP 36.2–36.4; O2SAT 93–98
[2024-09-25] MEDS: LACTATED RINGERS 1,000 ML 100 ML IV CONT (02:14)
[2024-09-25] MEDS: METOCLOPRAMIDE HCL INJ 10 MG/2 ML VIAL 5 MG IV PUSH ×2 (06:10→21:24)
[2024-09-25] MEDS: PANTOPRAZOLE SODIUM IV 40 MG VIAL IV PUSH ×2 (09:49→20:43)
[2024-09-25] MEDS: ONDANSETRON INJ 4 MG/2 ML VIAL IV PUSH ×2 (09:54→17:11)
--- NOTE | 2024-09-25 12:10 | WPDGIPROGNO ---
Progress Note: A&P Assessment and Plan (1) GI bleed: Code(s): K92.2 - Gastrointestinal hemorrhage, unspecified Status: Acute Assessment and Plan: egd showed non bleeding at site of anastomosis continue with protonix twice daily (will need nursing home), no more signs of bleeding will advance diet and hopefully tomorrow home egd in 3-4 months to reassess site no nsaid's (2) Acute blood loss anemia: Code(s): D62 - Acute posthemorrhagic anemia Status: Acute Assessment and Plan: from iron supplement ppi twice daily (3) Abdominal pain: Qualifiers: Abdominal location: left lower quadrant Qualified Code(s): R10.32 - Left lower quadrant pain Code(s): R10.9 - Unspecified abdominal pain Status: Acute Assessment and Plan: better will advance diet (4) Melena: Code(s): K92.1 - Melena Status: Acute (5) Gastric ulcer: Code(s): K25.9 - Gastric ulcer, unspecified as acute or chronic, without hemorrhage or perforation Status: Acute Assessment and Plan: ppi bid (6) Gastric bypass status for obesity: Code(s): Z98.84 - Bariatric surgery status Status: Acute Subjective Date/time seen: 09/25/24 12:10 Interval history: doing better, no more gib tolerating liquid diet, less pain and more comfortable Review of Systems Review of Systems: All systems reviewed & are unremarkable except as noted in HPI and below Exam Const: General: comfortable and no acute distress HENMT: Mouth: Yes moist mucous membranes Eyes: General: appearance normal, both eyes and all related structures Neck: Neck: supple Resp: Effort & Inspection: normal respiratory effort Auscultation: clear to auscultation bilaterally Cardio: Rate: regular rate Rhythm: regular rhythm GI: Inspection: non-distended GI Palp: Yes Soft to palpation and No Tenderness to palpation present (GI) Auscultation: normal bowel sounds Skin: General skin exam: normal color Neuro: Speech: normal speech Motor exam (neuro): 5/5 motor strength present throughout Extrem: General: no edema Psych: Affect: normal affect Objective Data Vital Signs Vital Signs: Vital Signs - 24 hr 09/24/24 13:27 09/24/24 14:32 09/24/24 14:42 Temperature 97.3 F L Pulse Rate 74 108 H 92 Respiratory Rate 17 18 17 Blood Pressure 135/83 127/78 113/72 Pulse Oximetry 98 95 96 Oxygen Delivery Room Air Room Air Room Air 09/24/24 14:52 09/24/24 20:00 09/24/24 20:00 Temperature 98.2 F Pulse Rate 79 83 Respiratory Rate 19 16 Blood Pressure 110/71 137/61 Pulse Oximetry 100 100 Oxygen Delivery Room Air Room Air 09/24/24 20:00 09/25/24 00:00 09/25/24 04:00 Temperature Pulse Rate 85 76 75 Respiratory Rate Blood Pressure Pulse Oximetry Oxygen Delivery 09/25/24 04:29 Temperature 97.2 F L Pulse Rate 74 Respiratory Rate 16 Blood Pressure 105/54 L Pulse Oximetry 93 Oxygen Delivery Intake/Output Intake/Output: Intake & Output 09/22/24 09/23/24 09/24/24 09/25/24 23:59 23:59 23:59 23:59 Intake Total 1000 1999 1550 Balance 1000 1999 1550 Meds/Results Medications: Active Medications Generic Name Dose Route Start Last Admin Trade Name Freq PRN Reason Stop Dose Admin Acetaminophen 650 mg 09/23/24 19:57 Acetaminophen 325 Mg Tablet PO Q4H PRN Mild Pain (1-3) or Fever Lactated Ringer's 1,000 mls @ 100 mls/hr 09/23/24 20:00 09/25/24 02:14 Lr - Lactated Ringers Iv IV CONT 100 mls/hr .Q10H DAMIAN Administration Metoclopramide HCl 5 mg 09/24/24 06:00 09/25/24 06:10 Metoclopramide Hcl Inj 10 Mg/2 Ml Vial IV PUSH 5 mg Q8HR DAMIAN Administration Morphine Sulfate 4 mg 09/23/24 19:57 09/24/24 21:01 Morphine Sulfate (*Crx) 4 Mg/Ml Inj IV PUSH 4 mg Q2H PRN Administration Pain Rated 7-10 Ondansetron HCl 4 mg 09/25/24 08:33 09/25/24 09:54 Ondansetron Inj 4 Mg/2 Ml Vial IV PUSH 4 mg Q6H PRN Administration Nausea And Vomiting Pantoprazole Sodium 40 mg 09/24/24 09:00 09/25/24 09:49 Pantoprazole Sodium Iv 40 Mg Vial IV PUSH 40 mg Q12HR DAMIAN Administration Radiology Results: ITS Impressions Abdomen Ultrasound 09/23/24 20:37 IMPRESSION: Echogenic area in the liver measuring 2 x 1.8 cm which is most likely focal fat infiltration. Follow-up advised. Otherwise, normal right upper quadrant ultrasound. Labs Labs: Laboratory Results - last 24 hr 09/24/24 20:18 WBC 4.5 RBC 3.18 L Hgb 8.3 L Hct 26.3 L MCV 82.7 MCH 26.1 MCHC 31.6 L RDW 13.8 Plt Count 149 L MPV 12.4 H Immature Gran % (Auto) 0.2 Neut % (Auto) 57.3 Lymph % (Auto) 29.6 [place] % (Auto) 10.7 H Eos % (Auto) 1.8 Baso % (Auto) 0.4 Lymph # (Auto) 1.33 [place] # (Auto) 0.5 Eos # (Auto) 0.1 Baso # (Auto) 0.0 Abs Immat Gran (auto) 0.01 Absolute Neuts (auto) 2.6 Absolute Nucleated RBC 0.000 Nucleated RBC % 0.0 Sodium 137 Potassium 4.0 Chloride 106 Carbon Dioxide 27 Anion Gap 4 BUN 9 D Creatinine 0.68 L Estim Creat Clear Calc 83 Estimated GFR > 60 Glucose 80 Calcium 8.9 Total Bilirubin 0.3 Direct Bilirubin 0.0 AST 29 ALT 17 Alkaline Phosphatase 85 Total Protein 6.0 L Albumin 2.9 L
[2024-09-25 12:36] LABS: Glucose Point of Care 129 mg/dl (65-105)
--- NOTE | 2024-09-25 17:37 | P.PNIM_ITS ---
Progress Note: A&P Assessment and Plan (1) Coronary arteriosclerosis in [place] artery: Code(s): I25.10 - Atherosclerotic heart disease of [place] coronary artery without angina pectoris Status: Acute Assessment and Plan: Takes CAD for coronary artery calcification because she is allergic to aspirin. Mild ischemia at stress test in 2018 but no prior catheterization reviewed cardiology reviewed clinic note 11/14/2023. Can hold Plavix for discharge and discuss with PCP or cardiology. (2) GI bleed: Code(s): K92.2 - Gastrointestinal hemorrhage, unspecified Status: Acute Assessment and Plan: She reports melena in the week prior to admission last 2 days ago. She has a history of a gastric bypass in 2021 and reports in the last 6 weeks she has been having frequent vomiting, after every meal. This has been a problem last year but had improved with a soft diet and recently worsened again 09/23 Abd US showed Echogenic area in the liver measuring 2 x 1.8 cm which is most likely focal fat infiltration. Follow-up advised. Otherwise, normal right upper quadrant ultrasound. 09/23 CT abd/pelvis Interval development of a rounded focus of fluid attenuation within the caudal- most portion of segment 4 of the liver, a common place to see focal fatty sparing. However, the liver does not demonstrate significant fatty infiltration. Focused ultrasound is recommended for further evaluation, when the patient is clinically able. This abnormality lies medial to the fundus of the gallbladder and immediately beneath the right lateral rectus muscle. Likely easily visualized with ultrasound. Findings within the distal stomach which may represent gastric ulcer disease for which direct visualization is recommended. GI consulted concern for ulcer in the gastric pouch planning EGD today CT also noted Fecal stasis in the colon --started IV ppi continue for now. Could consider adding carafate for gastric pain --advancing diet per GI --add bentyl prn for abdominal cramping --follow-up with surgery --Add miralax Time Spent With Patient Time: 57 minutes Subjective Date/time seen: 09/25/24 17:37 Interval history: No bleeding overnight, last stool a few days ago Tolerating liquid diet this morning. Cramping pain after eating all meals. Review of Systems Review of Systems: All systems reviewed & are unremarkable except as noted in HPI and below (HPI) Exam Narrative: General - Awake and alert. No acute distress Eyes - PERRLA, EOM intact ENT - No thrush, No erythema Neck - No noticeable or palpable swelling Lymph Nodes - No lymphadenopathy Cardiovascular - RRR no m/r/g, no JVD Lungs: Clear to auscultation, No wheezing, use of accessory muscles, no crackles Skin - Skin warm and dry, no wounds or rashes Abdomen - Normal bowel sounds, abdomen soft and minimally tender upper abdomen Extremities - No edema, cyanosis or clubbing Musculoskeletal - 5/5 strength, normal range of motion, no swollen or erythematous joints. Neurological ? Alert and oriented x 3, CN 2-12 grossly intact. Psych: Normal mood and affect Objective Data Vital Signs Vital Signs: Vital Signs - 24 hr 09/24/24 20:00 09/24/24 20:00 09/24/24 20:00 Temperature 98.2 F Pulse Rate 83 85 Respiratory Rate 16 Blood Pressure 137/61 Pulse Oximetry 100 Oxygen Delivery Room Air 09/25/24 00:00 09/25/24 04:00 09/25/24 04:29 Temperature 97.2 F L Pulse Rate 76 75 74 Respiratory Rate 16 Blood Pressure 105/54 L Pulse Oximetry 93 Oxygen Delivery 09/25/24 14:00 Temperature 97.6 F Pulse Rate 79 Respiratory Rate 16 Blood Pressure 117/63 Pulse Oximetry 98 Oxygen Delivery Intake/Output Intake/Output: Intake & Output 09/22/24 09/23/24 09/24/24 09/25/24 23:59 23:59 23:59 23:59 Intake Total 1000 1999 2029 Balance 1000 1999 2029 Meds/Results Medications: Active Medications Generic Name Dose Route Start Last Admin Trade Name Freq PRN Reason Stop Dose Admin Acetaminophen 650 mg 09/23/24 19:57 Acetaminophen 325 Mg Tablet PO Q4H PRN Mild Pain (1-3) or Fever Dicyclomine HCl 10 mg 09/25/24 17:32 Dicyclomine Hcl 10 Mg Capsule PO QID PRN Abdominal Cramping Lactated Ringer's 1,000 mls @ 100 mls/hr 09/23/24 20:00 09/25/24 17:11 Lr - Lactated Ringers Iv IV CONT Not Given .Q10H DAMIAN Metoclopramide HCl 5 mg 09/24/24 06:00 09/25/24 14:00 Metoclopramide Hcl Inj 10 Mg/2 Ml Vial IV PUSH Not Given Q8HR DAMIAN Morphine Sulfate 4 mg 09/23/24 19:57 09/24/24 21:01 Morphine Sulfate (*Crx) 4 Mg/Ml Inj IV PUSH 4 mg Q2H PRN Administration Pain Rated 7-10 Ondansetron HCl 4 mg 09/25/24 08:33 09/25/24 17:11 Ondansetron Inj 4 Mg/2 Ml Vial IV PUSH 4 mg Q6H PRN Administration Nausea And Vomiting Pantoprazole Sodium 40 mg 09/24/24 09:00 09/25/24 09:49 Pantoprazole Sodium Iv 40 Mg Vial IV PUSH 40 mg Q12HR DAMIAN Administration Radiology Results: ITS Impressions Abdomen Ultrasound 09/23/24 20:37 IMPRESSION: Echogenic area in the liver measuring 2 x 1.8 cm which is most likely focal fat infiltration. Follow-up advised. Otherwise, normal right upper quadrant ultrasound. Labs Labs: Laboratory Results - last 24 hr 09/24/24 09/25/24 20:18 12:32 WBC 4.5 RBC 3.18 L Hgb 8.3 L Hct 26.3 L MCV 82.7 MCH 26.1 MCHC 31.6 L RDW 13.8 Plt Count 149 L MPV 12.4 H Immature Gran % (Auto) 0.2 Neut % (Auto) 57.3 Lymph % (Auto) 29.6 [place] % (Auto) 10.7 H Eos % (Auto) 1.8 Baso % (Auto) 0.4 Lymph # (Auto) 1.33 [place] # (Auto) 0.5 Eos # (Auto) 0.1 Baso # (Auto) 0.0 Abs Immat Gran (auto) 0.01 Absolute Neuts (auto) 2.6 Absolute Nucleated RBC 0.000 Nucleated RBC % 0.0 Sodium 137 Potassium 4.0 Chloride 106 Carbon Dioxide 27 Anion Gap 4 BUN 9 D Creatinine 0.68 L Estim Creat Clear Calc 83 Estimated GFR > 60 Glucose 80 POC Capillary Glucose 129 H Calcium 8.9 Total Bilirubin 0.3 Direct Bilirubin 0.0 AST 29 ALT 17 Alkaline Phosphatase 85 Total Protein 6.0 L Albumin 2.9 L Hospitalist MIPS Advance Care Plan I have confirmed that the patient's Advanced Care Plan is present, code status is documented, or surrogate decision maker is listed in patient medical record.: Yes Medication Reconciliation I have utilized all available resources to obtain, update and review the patients current medications (includes all prescriptions, OTC, herbals, cannabis, and nutritional supplements).: Yes
[2024-09-26] VITALS: PULSE 72
[2024-09-26 04:00] VITALS: PULSE 68
[2024-09-26] MEDS: METOCLOPRAMIDE HCL INJ 10 MG/2 ML VIAL 5 MG IV PUSH ×2 (05:04→13:58)
[2024-09-26 05:38] VITALS: BP 126/75; PULSE 84; RESP 20; TEMP 36.1; O2SAT 99
--- NOTE | 2024-09-26 08:50 | P.PNIM_ITS ---
Progress Note: A&P Assessment and Plan (1) Coronary arteriosclerosis in [place] artery: Code(s): I25.10 - Atherosclerotic heart disease of [place] coronary artery without angina pectoris Status: Acute Assessment and Plan: Takes Plavix for coronary artery calcification because she is allergic to aspirin. Mild ischemia at stress test in 2018 but no prior catheterization reviewed cardiology reviewed clinic note 11/14/2023. Can hold Plavix for discharge and discuss with PCP or cardiology. (2) GI bleed: Code(s): K92.2 - Gastrointestinal hemorrhage, unspecified Status: Acute Assessment and Plan: She reports melena in the week prior to admission last 2 days ago. She has a history of a gastric bypass in 2021 and reports in the last 6 weeks she has been having frequent vomiting, after every meal. This has been a problem last year but had improved with a soft diet and recently worsened again 09/23 Abd US showed Echogenic area in the liver measuring 2 x 1.8 cm which is most likely focal fat infiltration. Follow-up advised. Otherwise, normal right upper quadrant ultrasound. 09/23 CT abd/pelvis Interval development of a rounded focus of fluid attenuation within the caudal- most portion of segment 4 of the liver, a common place to see focal fatty spar ing. However, the liver does not demonstrate significant fatty infiltration. Focused ultrasound is recommended for further evaluation, when the patient is clinically able. This abnormality lies medial to the fundus of the gallbladder and immediately beneath the right lateral rectus muscle. Likely easily visualized with ultrasound. Findings within the distal stomach which may represent gastric ulcer disease for which direct visualization is recommended. GI consulted concern for ulcer in the gastric pouch planning EGD today CT also noted Fecal stasis in the colon --started IV ppi continue for now. Could consider adding carafate for gastric pain --advancing diet per GI --add bentyl prn for abdominal cramping --follow-up with surgery --Add miralax Subjective Date/time seen: 09/26/24 08:50 Review of Systems Review of Systems: All systems reviewed & are unremarkable except as noted in HPI and below (HPI) Exam Narrative: General - Awake and alert. No acute distress Eyes - PERRLA, EOM intact ENT - No thrush, No erythema Neck - No noticeable or palpable swelling Lymph Nodes - No lymphadenopathy Cardiovascular - RRR no m/r/g, no JVD Lungs: Clear to auscultation, No wheezing, use of accessory muscles, no crackles Skin - Skin warm and dry, no wounds or rashes Abdomen - Normal bowel sounds, abdomen soft and minimally tender upper abdomen Extremities - No edema, cyanosis or clubbing Musculoskeletal - 5/5 strength, normal range of motion, no swollen or erythematous joints. Neurological ? Alert and oriented x 3, CN 2-12 grossly intact. Psych: Normal mood and affect Const: General: comfortable and no acute distress HENMT: Mouth: Yes moist mucous membranes Eyes: Pupils: Equal, round and reactive pupils present Neck: Neck: supple Resp: Effort & Inspection: normal respiratory effort Auscultation: clear to auscultation bilaterally Cardio: Rate: regular rate Rhythm: regular rhythm GI: Inspection: non-distended Other: Hyperactive bowel sounds Neuro: Cranial nerves: Yes Equal, round and reactive pupils present Motor exam (neuro): 5/5 motor strength present throughout Extrem: General: no edema Objective Data Vital Signs Vital Signs: Vital Signs - 24 hr 09/25/24 12:00 09/25/24 14:00 09/25/24 16:00 Temperature 97.6 F Pulse Rate 111 H 79 86 Respiratory Rate 16 Blood Pressure 117/63 Pulse Oximetry 98 Oxygen Delivery 09/25/24 20:00 09/25/24 20:25 09/25/24 21:45 Temperature 97.6 F Pulse Rate 97 80 Respiratory Rate 24 H Blood Pressure 119/63 Pulse Oximetry 98 98 Oxygen Delivery Room Air 09/26/24 00:00 09/26/24 04:00 09/26/24 05:38 Temperature 97 F L Pulse Rate 72 68 84 Respiratory Rate 20 Blood Pressure 126/75 Pulse Oximetry 99 Oxygen Delivery Intake/Output Intake/Output: Intake & Output 09/23/24 09/24/24 09/25/24 09/26/24 23:59 23:59 23:59 23:59 Intake Total 1000 1999 2029 Balance 1000 1999 2029 Meds/Results Medications: Active Medications Generic Name Dose Route Start Last Admin Trade Name Freq PRN Reason Stop Dose Admin Acetaminophen 650 mg 09/23/24 19:57 Acetaminophen 325 Mg Tablet PO Q4H PRN Mild Pain (1-3) or Fever Dicyclomine HCl 10 mg 09/25/24 17:32 Dicyclomine Hcl 10 Mg Capsule PO QID PRN Abdominal Cramping Metoclopramide HCl 5 mg 09/24/24 06:00 09/26/24 05:04 Metoclopramide Hcl Inj 10 Mg/2 Ml Vial IV PUSH 5 mg Q8HR DAMIAN Administration Morphine Sulfate 4 mg 09/23/24 19:57 09/24/24 21:01 Morphine Sulfate (*Crx) 4 Mg/Ml Inj IV PUSH 4 mg Q2H PRN Administration Pain Rated 7-10 Ondansetron HCl 4 mg 09/25/24 08:33 09/25/24 17:11 Ondansetron Inj 4 Mg/2 Ml Vial IV PUSH 4 mg Q6H PRN Administration Nausea And Vomiting Pantoprazole Sodium 40 mg 09/24/24 09:00 09/25/24 20:43 Pantoprazole Sodium Iv 40 Mg Vial IV PUSH 40 mg Q12HR DAMIAN Administration Polyethylene Glycol 17 gm 09/26/24 09:00 Polyethylene Glycol 3350 17 Gm Powd.Pack PO QAM [facility] Radiology Results: ITS Impressions Abdomen Ultrasound 09/23/24 20:37 IMPRESSION: Echogenic area in the liver measuring 2 x 1.8 cm which is most likely focal fat infiltration. Follow-up advised. Otherwise, normal right upper quadrant ultrasound. Labs Labs: Laboratory Results - last 24 hr 09/25/24 12:32 POC Capillary Glucose 129 H Hospitalist MIPS Advance Care Plan I have confirmed that the patient's Advanced Care Plan is present, code status is documented, or surrogate decision maker is listed in patient medical record.: Yes Medication Reconciliation I have utilized all available resources to obtain, update and review the patients current medications (includes all prescriptions, OTC, herbals, cannabis, and nutritional supplements).: Yes
[2024-09-26] MEDS: polyethylene glycoL 3350 17 GM POWD.PACK PO (08:59)
[2024-09-26] MEDS: PANTOPRAZOLE SODIUM IV 40 MG VIAL IV PUSH (09:00)
[2024-09-26] MEDS: ONDANSETRON INJ 4 MG/2 ML VIAL IV PUSH (13:58)
--- NOTE | 2024-09-26 15:37 | WPDGIPROGNO ---
Progress Note: A&P Assessment and Plan (1) GI bleed: Code(s): K92.2 - Gastrointestinal hemorrhage, unspecified Status: Acute Assessment and Plan: egd showed non bleeding at site of anastomosis continue with protonix twice daily (will need intermediate), no more signs of bleeding tolerating diet, will need antiemetics egd in 3-4 months to reassess site no nsaid's she is going home today (2) Acute blood loss anemia: Code(s): D62 - Acute posthemorrhagic anemia Status: Acute Assessment and Plan: from iron supplement ppi twice daily h/h stable (3) Abdominal pain: Code(s): R10.9 - Unspecified abdominal pain Status: Acute Assessment and Plan: better tolerating diet (4) Melena: Code(s): K92.1 - Melena Status: Acute (5) Gastric ulcer: Code(s): K25.9 - Gastric ulcer, unspecified as acute or chronic, without hemorrhage or perforation Status: Acute Assessment and Plan: ppi bid (6) Gastric bypass status for obesity: Code(s): Z98.84 - Bariatric surgery status Status: Acute Subjective Date/time seen: 09/26/24 15:37 Interval history: still some nausea but overall much better since admission Review of Systems Review of Systems: All systems reviewed & are unremarkable except as noted in HPI and below Exam Const: General: comfortable and no acute distress HENMT: Mouth: Yes moist mucous membranes Eyes: General: appearance normal, both eyes and all related structures Neck: Neck: supple Resp: Effort & Inspection: normal respiratory effort Auscultation: clear to auscultation bilaterally Cardio: Rate: regular rate Rhythm: regular rhythm GI: Inspection: non-distended GI Palp: Yes Soft to palpation and No Tenderness to palpation present (GI) Auscultation: normal bowel sounds Skin: General skin exam: normal color Neuro: Speech: normal speech Motor exam (neuro): 5/5 motor strength present throughout Extrem: General: no edema Psych: Affect: normal affect Objective Data Vital Signs Vital Signs: Vital Signs - 24 hr 09/25/24 16:00 09/25/24 20:00 09/25/24 20:25 Temperature 97.6 F Pulse Rate 86 97 80 Respiratory Rate 24 H Blood Pressure 119/63 Pulse Oximetry 98 Oxygen Delivery 09/25/24 21:45 09/26/24 00:00 09/26/24 04:00 Temperature Pulse Rate 72 68 Respiratory Rate Blood Pressure Pulse Oximetry 98 Oxygen Delivery Room Air 09/26/24 05:38 Temperature 97 F L Pulse Rate 84 Respiratory Rate 20 Blood Pressure 126/75 Pulse Oximetry 99 Oxygen Delivery Intake/Output Intake/Output: Intake & Output 09/23/24 09/24/24 09/25/24 09/26/24 23:59 23:59 23:59 23:59 Intake Total 999 Balance 1000 1999 Meds/Results Medications: Active Medications Generic Name Dose Route Start Last Admin Trade Name Freq PRN Reason Stop Dose Admin Acetaminophen 650 mg 09/23/24 19:57 Acetaminophen 325 Mg Tablet PO Q4H PRN Mild Pain (1-3) or Fever Dicyclomine HCl 10 mg 09/25/24 17:32 Dicyclomine Hcl 10 Mg Capsule PO QID PRN Abdominal Cramping Metoclopramide HCl 5 mg 09/24/24 06:00 09/26/24 13:58 Metoclopramide Hcl Inj 10 Mg/2 Ml Vial IV PUSH 5 mg Q8HR DAMIAN Administration Morphine Sulfate 4 mg 09/23/24 19:57 09/24/24 21:01 Morphine Sulfate (*Crx) 4 Mg/Ml Inj IV PUSH 4 mg Q2H PRN Administration Pain Rated 7-10 Ondansetron HCl 4 mg 09/25/24 08:33 09/26/24 13:58 Ondansetron Inj 4 Mg/2 Ml Vial IV PUSH 4 mg Q6H PRN Administration Nausea And Vomiting Pantoprazole Sodium 40 mg 09/24/24 09:00 09/26/24 09:00 Pantoprazole Sodium Iv 40 Mg Vial IV PUSH 40 mg Q12HR DAMIAN Administration Polyethylene Glycol 17 gm 09/26/24 09:00 09/26/24 08:59 Polyethylene Glycol 3350 17 Gm Powd.Pack PO 17 gm QAM DAMIAN Administration Radiology Results: ITS Impressions Abdomen Ultrasound 09/23/24 20:37 IMPRESSION: Echogenic area in the liver measuring 2 x 1.8 cm which is most likely focal fat infiltration. Follow-up advised. Otherwise, normal right upper quadrant ultrasound.
--- NOTE | 2024-09-26 18:25 | P.DS_ITS ---
DS: Admitting Diagnosis Discharge Date 09/26/24 Admitting Diagnosis Dark stools DS: Discharge Diagnosis Discharge Diagnosis (1) Coronary arteriosclerosis in [place] artery: Code(s): I25.10 - Atherosclerotic heart disease of [place] coronary artery without angina pectoris Status: Acute Assessment and Plan: Takes Plavix for coronary artery calcification because she is allergic to aspirin. Mild ischemia at stress test in 2018 but no prior catheterization reviewed cardiology reviewed clinic note 11/14/2023. Can hold Plavix for discharge and discuss with PCP or cardiology. (2) GI bleed: Code(s): K92.2 - Gastrointestinal hemorrhage, unspecified Status: Acute Assessment and Plan: She reports melena in the week prior to admission last 2 days ago. She has a history of a gastric bypass in 2021 and reports in the last 6 weeks she has been having frequent vomiting, after every meal. This has been a problem last year but had improved with a soft diet and recently worsened again 09/23 Abd US showed Echogenic area in the liver measuring 2 x 1.8 cm which is most likely focal fat infiltration. Follow-up advised. Otherwise, normal right upper quadrant ultrasound. 09/23 CT abd/pelvis Interval development of a rounded focus of fluid attenuation within the caudal- most portion of segment 4 of the liver, a common place to see focal fatty sparing. However, the liver does not demonstrate significant fatty infiltration. Focused ultrasound is recommended for further evaluation, when the patient is clinically able. This abnormality lies medial to the fundus of the gallbladder and immediately beneath the right lateral rectus muscle. Likely easily visualized with ultrasound. Findings within the distal stomach which may represent gastric ulcer disease for which direct visualization is recommended. GI consulted concern for ulcer in the gastric pouch planning EGD today CT also noted Fecal stasis in the colon --started IV ppi continue for now. Could consider adding carafate for gastric pain --advancing diet per GI --add bentyl prn for abdominal cramping --follow-up with surgery --Add miralax DS: Summary Hospital Course Hospital Course: 53-year-old female accompanied by her whom she lives with with a history of CAD on Plavix, hypertension, hyperlipidemia, status post gastric bypass in 2021 who presents with complaint of dark stools for 6 days. On 09/22/2024 she presented to office with this complaint with associated nausea and intermittent vomiting, food colored. She has vomiting on and off at baseline due to her bypass She has had black to dark stools, formed. She had CT abdomen pelvis and blood work ordered. Hemoglobin was found a 8.7 which is around her baseline. CT abdomen pelvis demonstrated 14 x 19 mm focus of decreased attenuation within the distal stomach which may represent gastric ulcer. She then presented to ER. Repeat hemoglobin at this time 8.7. Hemodynamic stable. GI consulted from ER. Lactated Ringer's at 100 cc started in addition to 1 L bolus, given Protonix 80 mg IV x1, Zofran, metoclopramide 5 mg IV x1, morphine 4 mg IV x1. She had complained of some generalized abdominal pain. I assumed care on 09/26/2024. Reviewed EGD which shows acute gastric ulcer without signs of bleeding. Please refer to the full report. Discussed with Gastroenterology who agrees to continue Plavix after week. Advised the patient to perform CBC in a week and discuss the results with PCP. Given ED precautions. On the day of discharge, the patient was seen and examined. Vital signs were stable. Physical exam were stable and labs were reviewed at length. Discharge instructions, medications, and follow-up appointments were discussed with the patient at length and all day questions were answered. ER warnings were given. Status at Discharge Cognitive/behavioral status at discharge: Stable Time Spent with Patient Time attestation: Total time spent providing and/or coordinating discharge services: 45 minutes Exam Narrative: General - Awake and alert. No acute distress Eyes - PERRLA, EOM intact ENT - No thrush, No erythema Neck - No noticeable or palpable swelling Lymph Nodes - No lymphadenopathy Cardiovascular - RRR no m/r/g, no JVD Lungs: Clear to auscultation, No wheezing, use of accessory muscles, no crackles Skin - Skin warm and dry, no wounds or rashes Abdomen - Normal bowel sounds, abdomen soft and minimally tender upper abdomen Extremities - No edema, cyanosis or clubbing Musculoskeletal - 5/5 strength, normal range of motion, no swollen or erythematous joints. Neurological ? Alert and oriented x 3, CN 2-12 grossly intact. Psych: Normal mood and affect Const: General: comfortable and no acute distress HENMT: Mouth: Yes moist mucous membranes Eyes: Pupils: Equal, round and reactive pupils present Neck: Neck: supple Resp: Effort & Inspection: normal respiratory effort Auscultation: clear to auscultation bilaterally Cardio: Rate: regular rate Rhythm: regular rhythm GI: Inspection: non-distended Other: Hyperactive bowel sounds Neuro: Cranial nerves: Yes Equal, round and reactive pupils present Motor exam (neuro): 5/5 motor strength present throughout Extrem: General: no edema DS: Data Data Completed and Pending Pending studies at discharge: Pending at discharge 09/24/24 14:32 Surgical [PTH] Routine Discharge Plan Discharge Attending physician on discharge: Herb Rosenbaum Consulting providers: Mitchell Marques Discharging Clinician: Herb Rosenbaum Patient Disposition: Home Activity: as tolerated Diet: bland Discharge Instructions: Holding Plavix for a week Please follow up with your PCP/Cardiology and continue Plavix after a week if no contraindications Need to follow up with GI in a week. Ordered CBC . Please discuss the results with PCP Do not take NSAIDS Follow up with your Bariatric Surgeon ED precautions given Patient Instructions: Antibiotic Form Patient Language: East Timorese Stand Alone Forms: General Discharge Information Follow-up/Referrals: Mitchell Marques MD [Physician] - Discharge Medications: New dicyclomine 10 mg Capsule 10 mg PO QID PRN (Reason: Abdominal Cramping) Qty: 15 0RF pantoprazole [Protonix] 40 mg tablet,delayed release (DR/EC) 40 mg PO BID 56 Days Qty: 112 0RF ondansetron 4 mg tablet,disintegrating 4 mg PO Q8H PRN (Reason: nausea and vomiting) Qty: 30 0RF Continued albuterol sulfate [ProAir HFA] 90 mcg/actuation HFA aerosol inhaler 2 puff INHALATION Q4-6H PRN (Reason: shortness of breath or wheezing) Qty: 8.5 3RF glucose [Dex4 Glucose] 4 gram tablet,chewable 4 g PO Q15M PRN (Reason: hypoglycemia) Qty: 30 0RF Rx Instructions: until symptoms of low blood sugar are controlled cholecalciferol (vitamin D3) 1,250 mcg (50,000 unit) tablet 1,250 mcg PO WEEKLY Qty: 14 3RF Patient Comments: Patient takes on friday metoprolol succinate 25 mg tablet extended release 24 hr 25 mg PO DAILY (DME) Dexcom G7 Sensor Device See Rx Instructions .Route Qty: 9 3RF Rx Instructions: As directed metoclopramide HCl [Reglan] 10 mg tablet 10 mg PO Q6H PRN (Reason: nausea and vomiting) Qty: 30 1RF Alive Women's 50 Plus Gummy 2 gummy PO DAILY sertraline 100 mg tablet 200 mg PO DAILY (DME) Dexcom G7 Sensor Device See Rx Instructions .Route Qty: 10 3RF Rx Instructions: As directed Baqsimi 3 mg/actuation spray,non-aerosol See Rx Instructions .ROUTE .COMPLEX PRN (Reason: hypoglycemia) Qty: 2 3RF Dose Instruction: 3 MG INTRANASALLY ONCE NEEDED FOR HYPOGLYCEMIA A SINGLE DOSE Rx Instructions: 3 MG INTRANASALLY ONCE NEEDED FOR HYPOGLYCEMIA A SINGLE DOSE PRN; rosuvastatin 40 mg tablet See Rx Instructions .ROUTE .COMPLEX Qty: 90 1RF Dose Instruction: TAKE 1 TABLET BY MOUTH AT BEDTIME Rx Instructions: TAKE 1 TABLET BY MOUTH AT BEDTIME montelukast 10 mg tablet See Rx Instructions .ROUTE .COMPLEX Qty: 90 0RF Dose Instruction: TAKE 1 TABLET BY MOUTH EVERY DAY Rx Instructions: TAKE 1 TABLET BY MOUTH EVERY DAY. Need appointment for additional refills. aripiprazole 10 mg tablet See Rx Instructions .ROUTE .COMPLEX Qty: 90 1RF Dose Instruction: TAKE 1 TABLET BY MOUTH EVERY DAY Rx Instructions: TAKE 1 TABLET BY MOUTH EVERY DAY amitriptyline 10 mg tablet 10 mg PO QHS Qty: 90 1RF Held armodafinil 150 mg tablet 150 mg PO QAM PRN (Reason: Hypersomnia) Qty: 30 0RF Hold Instructions: Resume on 10/25/24. Please discuss with your PCP if you want to continue clopidogrel 75 mg tablet See Rx Instructions .ROUTE .COMPLEX Qty: 90 3RF Hold Instructions: Resume on 10/26/24. Please discuss with PCP/Cardiology before continuing Dose Instruction: TAKE 1 TABLET BY MOUTH EVERY DAY Rx Instructions: TAKE 1 TABLET BY MOUTH EVERY DAY Other Ambulatory Orders: Complete Blood Count no Diff (Routine) Timeframe: 1 Week Location: Determined by Patient Ordered By: Herb Rosenbaum Date of admission: 09/23/24 19:58 Primary Care Provider: Bro Gunderson Admitting Provider: Kim Gutierrez Attending physician on admission: Marce Soto Condition: Stable
== END 2024-09-26 15:45 | disposition home or self-care (01) | DRG 378 ==
LOC: ANHED 19:40 → ANH3MEDSUR 09-24 03:57
PROVIDERS: Internal Medicine Gastroenterology; Physician Assistant; Admitting Provider General Practice; Emergency Provider Student in an Organized Health Care Education/Training Program; PCP Student in an Organized Health Care Education/Training Program; Visit Provider Nurse Practitioner Acute Care
PROC: 0DJ08ZZ Inspection of Upper Intestinal Tract, Via Natural or Artificial Opening Endoscopic (ICD-10-PCS; principal; 2024-09-24 14:30)
DX: K25.0 Acute gastric ulcer with hemorrhage (principal); D62 Acute posthemorrhagic anemia; I25.10 Atherosclerotic heart disease of native coronary artery without angina pectoris; I10 Essential (primary) hypertension; E78.5 Hyperlipidemia, unspecified; G47.419 Narcolepsy without cataplexy; Z79.02 Long term (current) use of antithrombotics/antiplatelets; Z98.84 Bariatric surgery status
CPT/HCPCS: 36415; 36430; 76705; 80048; 80053; 80061; 80076; 82607; 82948; 84443; 85014; 85018; 85025; 85055; 85610; 85730; 86850; 86900; 86901; 86923; 88305; 96374; 96375; 99285; J2270; J2405; J2470; J2704; J2765; J7050; J7120; P9016

== ENCOUNTER 2024-09-30 12:30 | Outpatient (CLI) | payer OTHER, SELFPAY ==
[2024-09-30 12:49] LABS: Hematocrit 30.5 % (37.0-47.0); Hemoglobin 9.5 g/dL (12.0-15.0); Mean Corpuscular HGB Conc 31.1 g/dl (32-36); Mean Corpuscular Hemoglobin 25.8 pg (26-34); Mean Corpuscular Volume 82.9 fl (80-100); Mean Platelet Volume 12.1 fl (7.4-10.4); Platelet Count Result 203 k/mm3 (150-375); Red Blood Count 3.68 M/mm3 (4.2-5.4); Red Cell Distribution Width 13.5 % (11.5-14.5); White Blood Count 4.6 K/mm3 (4.5-10.0)
--- OUTSIDE RECORDS SUMMARY | 2024-09-30 13:01 | XMS_ITS | Clinical Summary ---
Author Organization [facility] Address [address] [place] [phone] Phone Care Team Providers Care Print Operator Name Role Phone Unavailable Primary Care Provider [...]
--- OUTSIDE RECORDS SUMMARY | 2024-09-30 13:01 | XMS_ITS | Referral Summary ---
Author Organization [facility] [address] Address [address] [place] [address] Care Team Providers Care Inside Wireman Name Role Phone Bacilio Cardona MD Primary Care Provider [phone] [phone] Allergies Active Allergy Reactions Criticality Noted Date [...] on file Legal Sex Female 4:09 AM RISK DEVELOPER Gender Identity Not on file Sexual Orientation [...] Plan of Treatment Not on file Insurance [facility] CHOICE PLUS [facility] H[facility]/PPO Address[address] [address] [place] [address] [facility] [place] [facility] HMO [facility] HEALTHCARE O [facility] HMO Care Teams Inside Wireman Relationship Specialty Start Date End Date Bacilio Cardona MD PCP - General 06/26/17
--- OUTSIDE RECORDS SUMMARY | 2024-09-30 13:01 | XMS_ITS | Clinical Summary ---
Author Organization [facility] Address [address] [facility] [place] [address] Care Team Providers Care Field Crop Technical Officer Name Role Phone Bacilio Cardona MD Primary Care Provider [phone]- [phone] Source Comments [facility],non-owned Affiliates and Associated Physician Practices is amultiple site organization consisting of ambulatory clinics and hospital sitesin [place], [place], [place] and [place]. This disclosure is being madepursuant to the Care Everywhere program and may not contain all information available regarding this patient. Last updated 18.[facility] Allergies Active Allergy Reactions Criticality Noted Date [...] AND DINNER 3 Active Continuous Blood Gluc Pharmaceutical Detailer ([employer] [place] [employer]) JEF as directed 2 Active Active [...] Assigned at Female 03/13/2021 8:47 AM ELECTRICAL INSTRUMENTATION TECHNICIAN Legal Sex Female 6:17 AM ELECTRICAL INSTRUMENTATION TECHNICIAN Gender Identity Female 03/13/2021 8:47 AM ELECTRICAL INSTRUMENTATION TECHNICIAN Sexual Orientation Not on file Last Filed [...] 2020 COVID-19 VACCINE ( - season) 2023 DEPRESSION SCREENING 04/28/2024 SCREENING FOR DIABETES 10/17/2024 2, 04/06/2021, 07/13/2020, Additional history exists INFLUENZA VACCINE (Season Ended) 2024 02/14/2015 HIB [...] COMPREHENSIVE METABOLIC PANEL Routine 04/06/2021 9:53 AM ELECTRICAL INSTRUMENTATION TECHNICIAN H/O gastric bypass Dietary counseling and surveillance Other specified intestinal malabsorption Vitamin deficiency History of morbid obesity from Last 3 Months or Most Recently Relevant to Health Maintenance Results * (ABNORMAL) COMPREHENSIVE METABOLIC PANEL (04/06/2021 9:53 AM ELECTRICAL INSTRUMENTATION TECHNICIAN) Glucose 60(L) 65 - 99 mg/dL [facility] [...] SPECIMEN / Unknown 04/06/2021 9:53 AM ELECTRICAL INSTRUMENTATION TECHNICIAN 04/06/2021 Narrative Resulting Agency Comment Lab Testing performed at: [facility] [place] [place] [address] [facility] [id number] Olivia Doyle MANAGING PARTNER-AND TAXI INSTRUCTOR [facility] - CHEMISTRY ORDERABLE S Final Result [facility] INSURANCE BILL [address] [place] [address] from Last 3 Months or Most Recently Relevant to Health Maintenance Insurance [employer] [facility] Address: [facility] [id number] [place] [id number] SELF PAY NO INSURANCE Member Subscriber Plan / Payer (Ef fective for All Dates) Name:Santhosh Keller Member ID:Not on file Relation to Subscriber:Not on file Name:SANTHOSH KELLER Subscriber ID:Not on file (Home) Address: [address] [place] [id number] Payer ID:Not on file Group ID:Not on file Type:Self Pay Address: [place], [place] Advance Directives * Full Code (Latest Code Status on File) Date Activated Date Inactivated Comments 07/11/2020 3:43 PM 07/13/2020 2:01 PM Care Teams Field Crop Technical Officer Relationship Specialty Start Date End Date Bacilio Cardona MD [address] [place] [phone] PCP - General Family Medicine 03/04/19
--- OUTSIDE RECORDS SUMMARY | 2024-09-30 13:01 | XMS_ITS | Clinical Summary ---
Author Organization [facility] [address] Address [address] [place] [address] Care Team Providers Care Insemination Worker Name Role Phone Bacilio Cardona MD Primary Care Provider [phone] [phone] Allergies Active Allergy Reactions Criticality Noted Date [...] Possible; followed by DR. becky Frausto at [facility].and Dr. Tavares Martin Multiple fractures from sports a nd martial arts Migraines Seizure disorder (HCC) GERD (gastroesophageal reflux disease) Asthma Anxiety Hypertension Hyperlipidemia Family History Medical History Relation Name Comments COPD Father Coronary artery disease Father Factor V Leiden Father Other Father Alive and well; Coronary artery disease Mother Relation Name Status Comments Father (Age 73 yo) of massive UT vs aortic rupture Mother Alive STarted w/ CAD, stents in early 60's, Etoh Social History Tobacco Use Types Packs/Day Years Used Date Smoking Tobacco: Never Smokeless Tobacco: Never Tobacco Cessation:Counseling Given: Not Answered Comments Unknown Sex and Gender Information Value Date Recorded Sex Assigned at Not on file Legal Sex Female 4:09 AM BANQUET PREP COOK Gender Identity Not on file Sexual Orientation [...] 12/16/2018, 12/25/2017, 12/17/2016, Additional history exists Insurance [facility] Care Teams Insemination Worker Relationship Specialty Start Date End Date Bacilio Cardona MD PCP - General 06/26/17
--- OUTSIDE RECORDS SUMMARY | 2024-09-30 13:01 | XMS_ITS ---
Author Organization Unknown Medications Medication Instructions Effective Dates (start - stop) Status rosuvastatin calcium 40 MG O ral Tablet 1990-06-44L75:00:00.000+00:0 0 - Completed montelukast 10 MG Oral Tablet 17-09-28:00:00.000+00:00 - Completed armodafinil 150 MG Oral Tablet 2 646-12-94W93:00:00.000+00:00 - Completed armodafinil 150 MG Oral Tablet 2 469-28-41Z64:00:00.000+00:00 - Completed clopidogrel 75 MG Oral Tablet 18-04-18:00:00.000+00:00 - Completed sertraline 100 MG Oral Tablet 17-09-28:00:00.000+00:00 - Completed 24 HR metoprolol succinate 5 0 MG Extended Release Oral Tablet 0436-23-57L22:00:00.000+0 0:00 - Completed armodafinil 150 MG Oral Tablet 2 691-05-51E97:00:00.000+00:00 - Completed amitriptyline hydrochloride 10 MG Oral Tablet 7179-65-38Q68:00:00.000+00:0 0 - Completed montelukast 10 MG Oral Tablet 20-06-06:00:00.000+00:00 - Completed aripiprazole 10 MG Oral Tablet 2 248-12-87L37:00:00.000+00:00 - Completed 24 HR metoprolol succinate 5 0 MG Extended Release Oral Tablet 6223-18-64J50:00:00.000+0 0:00 - Completed armodafinil 150 MG Oral Tablet 2 308-74-27P30:00:00.000+00:00 - Completed sertraline 100 MG Oral Tablet 20 17-01-05:00:00.000+00:00 - Completed amitriptyline hydrochloride 10 MG Oral Tablet 0434-89-45C55:00:00.000+00:0 0 - Completed 24 HR metoprolol succinate 5 0 MG Extended Release Oral Tablet 5097-64-94Y33:00:00.000+0 0:00 - Completed amitriptyline hydrochloride 10 MG Oral Tablet 8508-30-15N66:00:00.000+00:0 0 - Completed armodafinil 150 MG Oral Tablet 2 164-14-16K56:00:00.000+00:00 - Completed clopidogrel 75 MG Oral Tablet [...] rosuvastatin calcium 40 MG O ral Tablet 1888-61-25R20:00:00.000+00:0 0 - Completed - 2171-29-71P35:00 :00.000+00:00 - Completed rosuvastatin calcium 40 MG O ral Tablet 5165-74-22I94:00:00.000+00:0 0 - Completed sumatriptan 100 MG Oral Tablet 354-86-03E34:00:00.000+00:00 - Completed armodafinil 150 MG Oral Tablet 798-25-08S79:00:00.000+00:00 - Completed rosuvastatin calcium 40 MG O ral Tablet 3311-22-12F32:00:00.000+00:0 0 - Completed aripiprazole 10 MG Oral Tablet 2 335-72-67P66:00:00.000+00:00 - Completed 0.5 ML varicella zoster viru s glycoprotein E, recombinant 0.1 MG/ML Injection [Shingrix] 5554-90-78T46:00:00.000+00: 00 - Completed aripiprazole 10 MG Oral Tablet 2 889-62-27J87:00:00.000+00:00 - Completed aripiprazole 10 MG Oral Tablet 2 892-96-32G82:00:00.000+00:00 - Completed rosuvastatin calcium 40 MG O ral Tablet 2617-03-90K71:00:00.000+00:0 0 - Completed pantoprazole 40 MG Delayed Release Oral Tablet 3997-80-06E82:00:00.000+00:0 0 - Completed - 1029-82-24X87:00 :00.000+00:00 - Completed [id number] 200 ACTUAT albuter ol 0.09 MG/ACTUAT Metered Dose Inhaler 8467-59-13H66:00:00.000+00:0 0 - Completed amoxicillin 500 MG Oral Capsule [id number]:00:00.000+00:00 - Completed [id number] 200 ACTUAT albuter ol 0.09 MG/ACTUAT Metered Dose Inhaler 8935-36-70L56:00:00.000+00:0 0 - Completed acarbose 25 MG Oral Tablet :00:00.000+00:00 - Completed estradiol 0.1 MG/ML Vaginal Cream 2032-21-43E30:00:00.000+00:00 - Completed acarbose 25 MG Oral Tablet :00:00.000+00:00 - Completed triamcinolone acetonide 1 MG /ML Topical Cream 8447-18-00D35:00:00.000+00:0 0 - Completed acarbose 100 MG Oral Tablet 2022:00:00.000+00:00 - Completed estradiol 0.1 MG/ML Vaginal Cream 6128-80-91S91:00:00.000+00:00 - Completed acarbose 50 MG Oral Tablet 07-12T00:00:00.000+00:00 - Completed glucagon 3 MG Nasal Powder [Baqsimi] 4204-43-61Z39:00:00.000+00:0 0 - Completed acarbose 25 MG Oral Tablet 04-30T00:00:00.000+00:00 - Completed triamcinolone acetonide 1 MG /ML Topical Cream 3987-00-75J14:00:00.000+00:0 0 - Completed Patient Care team information Name Category Status Period Participants - - Proposed period not known -
== END 2024-09-30 12:31 | disposition home or self-care (01) ==
LOC: ANHLAB 12:31
PROVIDERS: PCP Family Medicine; Visit Provider General Practice
DX: K92.2 Gastrointestinal hemorrhage, unspecified (principal)
CPT/HCPCS: 36415; 85027

== ENCOUNTER 2024-11-08 15:56 | Outpatient (CLI) | payer OTHER, SELFPAY ==
--- OUTSIDE RECORDS SUMMARY | 2024-11-08 15:59 | XMS_ITS | Clinical Summary ---
Author Organization [facility] Address [address] [place] [address] Phone Care Team Providers Care Flame Degreaser Name Role Phone Unavailable Primary Care Provider [...] on file Legal Sex Female 8:13 AM [facility] Gender Identity Not on file Sexual Orientation [...]
--- OUTSIDE RECORDS SUMMARY | 2024-11-08 15:59 | XMS_ITS | Clinical Summary ---
Author Organization [facility] Address [address] [place] [address] Care Team Providers Care Mail Order Sorter Name Role Phone Bacilio Cardona MD Primary Care Provider [phone]- [phone] Source Comments [facility],non-owned Affiliates and Associated Physician Practices is amultiple site organization consisting of ambulatory clinics and hospital sitesin [place], [place], [place] and [place]. This disclosure is being madepursuant to the Care Everywhere program and may not contain all information available regarding this patient. Last updated 18.[facility] Allergies Active Allergy Reactions Criticality Noted Date [...] AND DINNER 3 Active Continuous Blood Gluc Financial Administrative Assistant ([employer] 2 [place] [employer]) JEF as directed 2 Active Active [...] Sex Assigned at Female 03/13/2021 8:47 AM DYEING MACHINE TENDER Legal Sex Female 6:17 AM DYEING MACHINE TENDER Gender Identity Female 03/13/2021 8:47 AM DYEING MACHINE TENDER Sexual Orientation Not on file Last Filed [...] - COLON CA SCREENING 1970 MAMMOGRAM 1970 HIV SCREENING 1985 HEPATITIS C SCREENING 09/30/1988 DTAP/TDAP/TD VACCINES (1 - Tdap) 1989 HEPATITIS B VACCINE (1 of 3 - 19+ 3-dose series) 1989 PAP SMEAR 10/06/1991 PNEUMOCOCCAL VACCINE 50+ (1 of 1 - PCV) 2020 ZOSTER VACCINE (1 of 2) 2020 COVID-19 VACCINE (1 - season) 2023 DEPRESSION SCREENING 04/28/2024 SCREENING FOR DIABETES 10/17/2024 2, 04/06/2021, 07/13/2020, Additional history exists INFLUENZA VACCINE (#1) 2024 02/14/2015 HIB VACCINE Aged Out No [...] COMPREHENSIVE METABOLIC PANEL Routine 04/06/2021 9:53 AM DYEING MACHINE TENDER H/O gastric bypass Dietary counseling and surveillance Other specified intestinal malabsorption Vitamin deficiency History of morbid obesity from Last 3 Months or Most Recently Relevant to Health Maintenance Results * (ABNORMAL) COMPREHENSIVE METABOLIC PANEL (04/06/2021 9:53 AM DYEING MACHINE TENDER) Glucose 60(L) 65 - 99 mg/dL [facility] [...] BLOOD SPECIMEN / Unknown 04/06/2021 9:53 AM DYEING MACHINE TENDER 04/06/2021 Narrative Resulting Agency Comment Lab Testing performed at: [facility] [place] [address] [facility] [id number] Olivia Jenniffer Doyle OUTPATIENT THERAPIST-MANAGER [facility] - CHEMISTRY ORDERABLE S Final Result [facility] INSURANCE BILL [address] [place] [address] from Last 3 Months or Most Recently Relevant to Health Maintenance Insurance [employer] Advance Directives * Full Code (Latest Code Status on File) Date Activated Date Inactivated Comments 07/11/2020 3:43 PM 07/13/2020 2:01 PM Care Teams Mail Order Sorter Relationship Specialty Start Date End Date Bacilio Cardona MD [address] [place] [phone] PCP - General Family Medicine 03/04/19
--- OUTSIDE RECORDS SUMMARY | 2024-11-08 15:59 | XMS_ITS | Patient Health Record ---
Author Organization [facility] [employer] Address [address] [facility] [address] [place] [address] Care Team Providers Care Glass Tinter Name Role Phone Gladys Keane Unavailable [phone] Reason For Referral No Information Medications Medication SIG (Take, Route, Frequency, Duration) Notes Start Date End Date Status Fexofenadine HCl 180 MG Oral Active Captopril 50 mg Oral Acti ve Gabapentin 300 MG Oral Ac tive amLODIPine Besylate 5 MG Oral Active Abilify 10 MG Oral Active Atorvastatin Calcium 40 MG Oral Active Sertraline HCl 100 MG Oral Active Vitamin D3 10 MCG (400 UNIT) Oral Active Metoprolol Tartrate 50 MG Oral Active Abilify 5 MG Oral Active Proventil HFA 108 (90 Base) MCG/ACT Inhalation Active SUMAtriptan Succinate 100 MG Oral Active Nuvigil 50 MG Oral Active Sertraline HCl 50 MG Oral Active Pantoprazole Sodium 40 MG Oral Active Clopidogrel Bisulfate 75 MG Oral Active Meloxicam 15 MG Oral Acti ve Plan Of Treatment No Information
--- OUTSIDE RECORDS SUMMARY | 2024-11-08 16:00 | XMS_ITS ---
Author Organization Unknown Medications Medication Instructions Effective Dates (start - stop) Status rosuvastatin calcium 40 MG O ral Tablet 0742-54-03V98:00:00.000+00:0 0 - Completed montelukast 10 MG Oral Tablet 17-09-28:00:00.000+00:00 - Completed armodafinil 150 MG Oral Tablet 2 615-91-29P73:00:00.000+00:00 - Completed armodafinil 150 MG Oral Tablet 2 774-29-65R96:00:00.000+00:00 - Completed clopidogrel 75 MG Oral Tablet 18-04-18:00:00.000+00:00 - Completed sertraline 100 MG Oral Tablet 17-09-28:00:00.000+00:00 - Completed 24 HR metoprolol succinate 5 0 MG Extended Release Oral Tablet 3070-09-74W83:00:00.000+0 0:00 - Completed armodafinil 150 MG Oral Tablet 2 471-93-24O37:00:00.000+00:00 - Completed amitriptyline hydrochloride 10 MG Oral Tablet 5326-11-38E16:00:00.000+00:0 0 - Completed montelukast 10 MG Oral Tablet 20-06-06:00:00.000+00:00 - Completed aripiprazole 10 MG Oral Tablet 2 847-87-42U48:00:00.000+00:00 - Completed 24 HR metoprolol succinate 5 0 MG Extended Release Oral Tablet 4382-54-62C14:00:00.000+0 0:00 - Completed armodafinil 150 MG Oral Tablet 2 402-20-74Z96:00:00.000+00:00 - Completed sertraline 100 MG Oral Tablet 20 17-01-05:00:00.000+00:00 - Completed amitriptyline hydrochloride 10 MG Oral Tablet 7878-43-30Q80:00:00.000+00:0 0 - Completed 24 HR metoprolol succinate 5 0 MG Extended Release Oral Tablet 8326-75-17Q42:00:00.000+0 0:00 - Completed amitriptyline hydrochloride 10 MG Oral Tablet 0195-78-59G94:00:00.000+00:0 0 - Completed armodafinil 150 MG Oral Tablet 2 920-97-22L94:00:00.000+00:00 - Completed clopidogrel 75 MG Oral Tablet [...] rosuvastatin calcium 40 MG O ral Tablet 0355-47-81N90:00:00.000+00:0 0 - Completed - 5407-96-62R34:00 :00.000+00:00 - Completed rosuvastatin calcium 40 MG O ral Tablet 6792-60-03D38:00:00.000+00:0 0 - Completed sumatriptan 100 MG Oral Tablet 993-75-26D60:00:00.000+00:00 - Completed armodafinil 150 MG Oral Tablet 101-54-12W04:00:00.000+00:00 - Completed rosuvastatin calcium 40 MG O ral Tablet 1500-19-20S10:00:00.000+00:0 0 - Completed aripiprazole 10 MG Oral Tablet 2 061-83-24H68:00:00.000+00:00 - Completed 0.5 ML varicella zoster viru s glycoprotein E, recombinant 0.1 MG/ML Injection [Shingrix] 4042-58-80O14:00:00.000+00: 00 - Completed aripiprazole 10 MG Oral Tablet 2 733-06-52J41:00:00.000+00:00 - Completed aripiprazole 10 MG Oral Tablet 2 677-44-76F08:00:00.000+00:00 - Completed rosuvastatin calcium 40 MG O ral Tablet 2065-10-53W83:00:00.000+00:0 0 - Completed pantoprazole 40 MG Delayed Release Oral Tablet 3390-33-35R08:00:00.000+00:0 0 - Completed - 3467-53-27B51:00 :00.000+00:00 - Completed [id number] 200 ACTUAT albuter ol 0.09 MG/ACTUAT Metered Dose Inhaler 6249-12-94U61:00:00.000+00:0 0 - Completed amoxicillin 500 MG Oral Capsule 4705-76-56F41:00:00.000+00:00 - Completed [id number] 200 ACTUAT albuter ol 0.09 MG/ACTUAT Metered Dose Inhaler 8854-63-12Q72:00:00.000+00:0 0 - Completed acarbose 25 MG Oral Tablet :00:00.000+00:00 - Completed estradiol 0.1 MG/ML Vaginal Cream 7566-32-36D32:00:00.000+00:00 - Completed acarbose 25 MG Oral Tablet :00:00.000+00:00 - Completed triamcinolone acetonide 1 MG /ML Topical Cream 0614-25-45A00:00:00.000+00:0 0 - Completed acarbose 100 MG Oral Tablet 2022:00:00.000+00:00 - Completed estradiol 0.1 MG/ML Vaginal Cream 9862-15-06B30:00:00.000+00:00 - Completed acarbose 50 MG Oral Tablet 07-12T00:00:00.000+00:00 - Completed glucagon 3 MG Nasal Powder [Baqsimi] 6303-21-45X05:00:00.000+00:0 0 - Completed acarbose 25 MG Oral Tablet 04-30T00:00:00.000+00:00 - Completed triamcinolone acetonide 1 MG /ML Topical Cream 5002-42-14W51:00:00.000+00:0 0 - Completed Patient Care team information Name Category Status Period Participants - - Proposed period not known -
[2024-11-08 17:33] LABS: Hematocrit 28.7 % (37.0-47.0); Hemoglobin 8.5 g/dL (12.0-15.0); Mean Corpuscular HGB Conc 29.6 g/dl (32-36); Mean Corpuscular Hemoglobin 22.7 pg (26-34); Mean Corpuscular Volume 76.5 fl (80-100); Platelet Count Result 168 k/mm3 (150-375); Red Blood Count 3.75 M/mm3 (4.2-5.4); White Blood Count 5.6 K/mm3 (4.5-10.0)
== END 2024-11-08 15:57 | disposition home or self-care (01) ==
PROVIDERS: PCP Family Medicine; Visit Provider Family Medicine
DX: K25.9 Gastric ulcer, unspecified as acute or chronic, without hemorrhage or perforation (principal)
CPT/HCPCS: 36415; 85027

== ENCOUNTER 2024-11-15 15:50 | Outpatient (CLI) | payer OTHER, SELFPAY ==
--- OUTSIDE RECORDS SUMMARY | 2024-11-15 15:52 | XMS_ITS ---
Author Organization Unknown Medications Medication Instructions Effective Dates (start - stop) Status rosuvastatin calcium 40 MG O ral Tablet 6344-02-25Z63:00:00.000+00:0 0 - Completed amitriptyline hydrochloride 10 MG Oral Tablet 1890-81-21T38:00:00.000+00:0 0 - Completed amitriptyline hydrochloride 10 MG Oral Tablet 5794-13-34G48:00:00.000+00:0 0 - Completed amitriptyline hydrochloride 10 MG Oral Tablet 4442-11-38E94:00:00.000+00:0 0 - Completed sertraline 100 MG Oral Tablet 17-09-28:00:00.000+00:00 - Completed sertraline 100 MG Oral Tablet 18-07-01:00:00.000+00:00 - Completed sertraline 100 MG Oral Tablet 18-04-05:00:00.000+00:00 - Completed sertraline 100 MG Oral Tablet 17-01-05:00:00.000+00:00 - Completed 24 HR metoprolol succinate 5 0 MG Extended Release Oral Tablet 1981-54-99E03:00:00.000+0 0:00 - Completed 24 HR metoprolol succinate 5 0 MG Extended Release Oral Tablet 1158-76-58Q54:00:00.000+0 0:00 - Completed 24 HR metoprolol succinate 5 0 MG Extended Release Oral Tablet 9382-71-55C54:00:00.000+0 0:00 - Completed armodafinil 150 MG Oral Tablet 2 643-44-83T10:00:00.000+00:00 - Completed armodafinil 150 MG Oral Tablet 2 329-67-97D86:00:00.000+00:00 - Completed armodafinil 150 MG Oral Tablet 2 687-18-92K48:00:00.000+00:00 - Completed armodafinil 150 MG Oral Tablet 2 816-02-55C28:00:00.000+00:00 - Completed armodafinil 150 MG Oral Tablet 2 449-87-75B65:00:00.000+00:00 - Completed aripiprazole 10 MG Oral Tablet 2 211-52-10H63:00:00.000+00:00 - Completed montelukast 10 MG Oral Tablet 20 17-09-28:00:00.000+00:00 - Completed montelukast 10 MG Oral Tablet 20 18-07-00:00:00.000+00:00 - Completed montelukast 10 MG Oral Tablet 20 19-03-13:00:00.000+00:00 - Completed montelukast 10 MG Oral Tablet 20 18-12-11:00:00.000+00:00 - Completed montelukast 10 MG Oral Tablet 20 20-06-06:00:00.000+00:00 - Completed clopidogrel 75 MG Oral Tablet 20 18-10-21:00:00.000+00:00 - Completed clopidogrel 75 MG Oral Tablet 20 19-07-15:00:00.000+00:00 - Completed clopidogrel 75 MG Oral Tablet 20 18-04-18:00:00.000+00:00 - Completed clopidogrel 75 MG Oral Tablet 20 17-01-21:00:00.000+00:00 - Completed aripiprazole 10 MG Oral Tablet 2 426-66-90Z50:00:00.000+00:00 - Completed 0.5 ML varicella zoster viru s glycoprotein E, recombinant 0.1 MG/ML Injection [Shingrix] 6207-88-15C42:00:00.000+00: 00 - Completed sumatriptan 100 MG Oral Tablet 2 760-24-12E72:00:00.000+00:00 - Completed - 6216-13-09W66:00 :00.000+00:00 - Completed aripiprazole 10 MG Oral Tablet 2 887-31-69Q94:00:00.000+00:00 - Completed aripiprazole 10 MG Oral Tablet 2 076-29-28F14:00:00.000+00:00 - Completed pantoprazole 40 MG Delayed Release Oral Tablet 2555-50-53W16:00:00.000+00:0 0 - Completed rosuvastatin calcium 40 MG O ral Tablet 4077-94-91W38:00:00.000+00:0 0 - Completed rosuvastatin calcium 40 MG O ral Tablet 8241-19-90B62:00:00.000+00:0 0 - Completed rosuvastatin calcium 40 MG O ral Tablet 0873-87-18L20:00:00.000+00:0 0 - Completed rosuvastatin calcium 40 MG O ral Tablet 2862-63-41W43:00:00.000+00:0 0 - Completed armodafinil 150 MG Oral Tablet 266-43-17Z53:00:00.000+00:00 - Completed estradiol 0.1 MG/ML Vaginal Cream 2776-86-78X95:00:00.000+00:00 - Completed estradiol 0.1 MG/ML Vaginal Cream 4739-79-61K96:00:00.000+00:00 - Completed - 7478-18-87H83:00 :00.000+00:00 - Completed triamcinolone acetonide 1 MG /ML Topical Cream 7919-89-91D09:00:00.000+00:0 0 - Completed triamcinolone acetonide 1 MG /ML Topical Cream 7882-71-11N78:00:00.000+00:0 0 - Completed [id number] 200 ACTUAT albuter ol 0.09 MG/ACTUAT Metered Dose Inhaler 8028-53-65F26:00:00.000+00:0 0 - Completed [id number] 200 ACTUAT albuter ol 0.09 MG/ACTUAT Metered Dose Inhaler 6349-85-09K40:00:00.000+00:0 0 - Completed amoxicillin 500 MG Oral Capsule 0158-48-23T43:00:00.000+00:00 - Completed acarbose 100 MG Oral Tablet 2022:00:00.000+00:00 - Completed acarbose 50 MG Oral Tablet :00:00.000+00:00 - Completed acarbose 25 MG Oral Tablet 04-30T00:00:00.000+00:00 - Completed acarbose 25 MG Oral Tablet 11-27T:00:00.000+00:00 - Completed acarbose 25 MG Oral Tablet 00:00:00.000+00:00 - Completed glucagon 3 MG Nasal Powder [Baqsimi] 5454-87-58Q24:00:00.000+00:0 0 - Completed Patient Care team information Name Category Status Period Participants - - Proposed period not known -
--- OUTSIDE RECORDS SUMMARY | 2024-11-15 15:52 | XMS_ITS | Clinical Summary ---
Author Organization [facility] Address [address] [place] [address] Care Team Providers Care Tallow Refiner Name Role Phone Bacilio Cardona MD Primary Care Provider [phone]- [phone] Source Comments [facility],non-owned Affiliates and Associated Physician Practices is amultiple site organization consisting of ambulatory clinics and hospital sitesin [place], [place], [place] and [place]. This disclosure is being madepursuant to the Care Everywhere program and may not contain all information available regarding this patient. Last updated 18.[facility] Allergies Active Allergy Reactions Criticality Noted Date [...] AND DINNER 3 Active Continuous Blood Gluc Quarter Section Ironer ([employer] Bet[employer] 2 Emma Syst[employer]) JEF as directed 2 Active Active [...] Sex Assigned at Female 03/13/2021 8:47 AM STACK ATTENDANT Legal Sex Female 6:17 AM STACK ATTENDANT Gender Identity Female 03/13/2021 8:47 AM STACK ATTENDANT Sexual Orientation Not on file Last Filed [...] COMPREHENSIVE METABOLIC PANEL Routine 04/06/2021 9:53 AM STACK ATTENDANT H/O gastric bypass Dietary counseling and surveillance Other specified intestinal malabsorption Vitamin deficiency History of morbid obesity from Last 3 Months or Most Recently Relevant to Health Maintenance Results * (ABNORMAL) COMPREHENSIVE METABOLIC PANEL (04/06/2021 9:53 AM STACK ATTENDANT) Glucose 60(L) 65 - 99 mg/dL [facility] [...] BLOOD SPECIMEN / Unknown 04/06/2021 9:53 AM STACK ATTENDANT 04/06/2021 Narrative Resulting Agency Comment Lab Testing performed at: [facility] [address] [facility] [id number] Olivia Jenniffer Doyle [employer] OPERATOR-FINISH CLEANER LAB - CHEMISTRY ORDERABLE S Final Result [facility] INSURANCE BILL [address] [place] [address] from Last 3 Months or Most Recently Relevant to Health Maintenance Insurance [employer] Advance Directives * Full Code (Latest Code Status on File) Date Activated Date Inactivated Comments 07/11/2020 3:43 PM 07/13/2020 2:01 PM Care Teams Tallow Refiner Relationship Specialty Start Date End Date Bacilio Cardona MD [address] [place] [phone] PCP - General Family Medicine 03/04/19
--- OUTSIDE RECORDS SUMMARY | 2024-11-15 15:52 | XMS_ITS | Encounter Summary ---
Author Organization [facility] Address [address] [place] [address] Care Team Providers Care Reinsurance Analyst Name Role Phone Unavailable Primary Care Provider Unavailabl e Encounter Details Date Type Department Care Team (Late st Contact Info) Description 11/15/2024 3:00 PM CDT Office Visit [facility] Oncology and Hematology - [place] [address] [facility] [address] [place] [address] Hasmukh Tovar MD [address] [facility] [address] [place] [address] Chronic anemia (Primary Dx) Social History Tobacco Use Types Packs/Day Years Used Date Smoking Tobacco: Never Smokeless Tobacco: Never Tobacco Cessation:Counseling Given: Not Answered Alcohol Use Standard Drinks/Week Comments Never 0 (1 standard drink = 0.6 oz pur e alcohol) Comments Unknown Sex and Gender Information Value Date Recorded Sex Assigned at Not on file Legal Sex Female 1:17 PM CDT Gender Identity Not on file Sexual Orientation Not on file documented as of this encounter Last Filed Vital Signs Vital Sign Reading Time Taken Comments Blood Pressure 96/52 11/15/2024 2:53 PM CDT Pulse 86 11/15/2024 2:53 PM CDT Temperature 37.1 C (98.7 F) 11/15/2024 2:53 PM CDT Respiratory Rate 16 11/15/2024 2:53 PM CDT Oxygen Saturation 98% 11/15/2024 2:53 PM CDT Inhaled Oxygen Concentration - - Weight 76.2 kg (168 lb) 11/15/2024 2:53 PM CDT Height 165.1 cm (5' 5) 11/15/2024 2:53 PM CDT Body Mass Index 27.96 11/15/2024 2:53 PM CDT documented in this encounter Plan of Treatment Upcoming Encounters Date Type Department Care Team (Late st Contact Info) Description 11/23/2024 4:30 PM CDT Telephone Check Up [facility] Oncology and Hematology - [place] [address] [facility] [address] [place] [address] Hasmukh Tovar MD [address] [facility] [address] [place] [address] Scheduled Orders Name Type Priority Associated Diagnoses Orde r Schedule CBC WITH DIFFERENTIAL Lab Stat Chronic anemia Expected: 11/15/2024, Expires: 11/15/2025 COMPREHENSIVE METABOLIC PANEL Lab Stat Chronic anemia Expected: 11/15/2024, Expires: 11/15/2025 FERRITIN Lab Routine Chronic anemia Expected: 11/15/2024, Expires: 11/15/2025 IRON, TIBC, AND PERCENT SATURATION Lab Routine Chronic anemia Expected: 11/15/2024, Expires: 11/15/2025 LACTATE DEHYDROGENASE Lab Routine Chronic anemia Expected: 11/15/2024, Expires: 11/15/2025 METHYLMALONIC ACID Lab Routine Chronic anemia Expected: 11/15/2024, Expires: 11/15/2025 TRANSFERRIN RECEPTOR TFR SOLUBLE Lab Routine Chronic anemia Expected: 11/15/2024, Expires: 11/15/2025 VITAMIN B12 AND FOLATE Lab Routine Chronic anemia Expected: 11/15/2024, Expires: 11/15/2025 documented as of this encounter Visit Diagnoses Diagnosis Chronic anemia- Primary Anemia, unspecified documented in this encounter
--- OUTSIDE RECORDS SUMMARY | 2024-11-15 15:52 | XMS_ITS | Clinical Summary ---
Author Organization [facility] Address [address] [place] [id number] Phone Care Team Providers Care Traffic Sign Supervisor Name Role Phone Unavailable Primary Care Provider [...] on file Legal Sex Female 8:13 AM [facility] Gender Identity Not on file Sexual Orientation [...]
--- OUTSIDE RECORDS SUMMARY | 2024-11-15 15:52 | XMS_ITS | Referral Summary ---
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
--- OUTSIDE RECORDS SUMMARY | 2024-11-15 15:52 | XMS_ITS | Encounter Summary ---
Author Organization [facility] Address [address] [place] [address] Care Team Providers Care Systems Operator Name Role Phone Bacilio Cardona MD Primary Care Provider [phone] Encounter Details Date Type Department Care Team (Late st Contact Info) Description 07/24/2017 Orders Only [facility] Information Management [address] [place] [id number] Scanning, Provider Social History Tobacco Use Types Packs/Day Years Used Date Smoking Tobacco: Never Smokeless Tobacco: Never Comments Unknown Sex and Gender Information Value Date Recorded Sex Assigned at Not on file Legal Sex Female 4:09 AM HAM MARKER Gender Identity Not on file Sexual Orientation Not on file documented as of this encounter Plan of Treatment Not on file documented as of this encounter Procedures Procedure Name Priority Date/Time Associated Diagnosis Comments SLEEP LAB/STUDY - RESULT 07/24/2017 1:21 AM CDT SCAN - RADIOLOGY/IMAGING 07/24/2017 1:21 AM CDT SCAN - LABS 07/24/2017 1:21 AM CDT CARDIOLOGY DOCUMENT SCAN 07/24/2017 1:21 AM CDT documented in this encounter Results * SLEEP LAB/STUDY - RESULT (07/24/2017 1:21 AM CDT) us Provider Scanning Final Result * SCAN - LABS (07/24/2017 1:21 AM CDT) us Provider Scanning Final Result * Cardiology Document Scan (07/24/2017 1:21 AM CDT) Anatomical Region Laterality Modality Other us Provider Scanning CV CARDIAC SERVICES PROCEDURES Final Result * SCAN - RADIOLOGY/IMAGING (07/24/2017 1:21 AM CDT) Anatomical Region Laterality Modality Other us Provider Scanning Edited Result - Final documented in this encounter Visit Diagnoses Not on filedocumented in this encounter Care Teams Systems Operator Relationship Specialty Start Date End Date Bacilio Cardona MD PCP - General 06/26/17 documented as of this encounter
--- OUTSIDE RECORDS SUMMARY | 2024-11-15 15:52 | XMS_ITS | Clinical Summary ---
Author Organization [facility] [address] Address [address] [place] [address] Care Team Providers Care Merchandise Coordinator Name Role Phone Bacilio Cardona MD Primary Care Provider [phone] [phone] Allergies Active Allergy Reactions Criticality Noted Date [...] Possible; [facility] Multiple fractures from sports a nd martial arts Migraines Seizure disorder (HCC) GERD (gastroesophageal reflux disease) Asthma Anxiety Hypertension Hyperlipidemia Family History Medical History Relation Name Comments COPD Father Coronary artery disease Father Factor V Leiden Father Other Father Alive and well; Coronary artery disease Mother Relation Name Status Comments Father (Age 73 yo) of massive IN vs aortic rupture Mother Alive STarted w/ CAD, stents in early 60's, Etoh Social History Tobacco Use Types Packs/Day Years Used Date Smoking Tobacco: Never Smokeless Tobacco: Never Tobacco Cessation:Counseling Given: Not Answered Comments Unknown Sex and Gender Information Value Date Recorded Sex Assigned at Not on file Legal Sex Female 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
--- OUTSIDE RECORDS SUMMARY | 2024-11-15 15:52 | XMS_ITS | Clinical Summary ---
Author Organization [facility] Address [address] [place] [address] Care Team Providers Care Color Card Maker Name Role Phone Unavailable Primary Care Provider Unavailabl e Allergies Active Allergy Reactions Criticality Noted Date Comments Aspirin Anaphylaxis,Nausea a nd Vomiting,Other (See Comments),Swelling High 08/20/2017 Reaction: Nausea, Swelling, Anaphylaxis, Reaction: Nausea, Swelling, Anaphylaxis, Medications albuterol sulfate HFA 90 mcg/actuation aerosol inhaler Take 2 Puffs by inhalation every 6 hours as needed. Active amitriptyline (ELAVIL) 10 mg tablet Take 10 mg by mouth daily at bedtime. 5 Active ARIPiprazole (ABILIFY) 10 mg tablet Take 1 Tablet by mouth daily. 5 Active Dexcom G7 Sensor Device as directed Acti ve cholecalciferol 1,250 mcg (50,000 unit) Capsule Take 50,000 Units by mouth every 7 days. Active dicyclomine (BENTYL) 10 mg capsule Take 10 mg by mouth 4 times daily as needed for Other (See Comment) (Abdominal cramping). 5 Active montelukast (SINGULAIR) 10 mg tablet TAKE 1 TABLET BY MOUTH EVERY DAY. NEED APPOINTMENT FOR ADDITIONAL REFILLS. Active ondansetron (ZOFRAN ODT) 4 mg Tablet, Rapid Dissolve take 1 tablet by mouth every 8 hours as needed for nausea and vomiting 5 Active pantoprazole (PROTONIX) 40 mg Tablet, Delayed Release (E.C.) TAKE 1 TABLET (40 MG) ORALLY TWICE A DAY FOR 8 WEEKS Active propranoloL (INDERAL LA) 80 mg Long Acting 24 hour capsule TAKE 1 CAPSULE 80 MG ORALLY DAILY Active rosuvastatin (CRESTOR) 40 mg tablet Take 40 mg by mouth daily at bedtime. Active sertraline (ZOLOFT) 100 mg tablet Take 1 Tablet by mouth 2 times daily. Active MULTIVITAMIN ORAL Take by mouth daily. Active HAIR, SKIN AND NAILS, BIOTIN, ORAL Take by mouth daily. Active Active Problems No known active problems Encounters Date Type Department Care Team Description 11/15/2024 3:00 PM CDT Office Visit [facility] Oncology and Hematology - [place] [address] [place] [id number] Hasmukh Tovar MD Chronic anemia (Primary Dx) from Last 3 Months Family History Medical History Relation Name Comments No Known Problems Child Diabetes Father Heart Disease Father Heart Disease Mother Relation Name Status Comments Child Alive Father Mother Alive Social History Tobacco Use Types Packs/Day Years [...] Mass Index 27.96 11/15/2024 2:53 PM CDT Plan of Treatment Upcoming Encounters Date Type Department Care Team (Late st Contact Info) Description 11/23/2024 4:30 PM CDT Telephone Check Up [facility] Oncology and Hematology - [place] [address] [place] [address] Hasmukh Tovar MD [address] [facility] [address] [place] [address] Health Maintenance Due Date Last Done Comments Pre-Diabetes and Diabetes Screening 1970 DTAP/TDAP/TD VACCINES (1 - Tdap) 1989 HEPATITIS B VACCINES (1 of 3 - 19+ 3-dose series) 09/26 HPV/Cotest (21-29) 10/06/1991 CERVICAL CANCER SCREENING 2000 HPV/Cotest (30-65) 2000 PAP SMEAR 2000 BREAST CANCER SCREENING 2010 COLORECTAL SCREENING 10/06/2015 Colorectal Cancer Screening 10/06/2015 FIT-DNA Q 3 years 10/06/2015 FIT/FOBT Q 1 year 10/06/2015 Flex Sig/CT Colonography Q 5 years 10/06/2015 ZOSTER VACCINE (1 of 2) 2020 Preventative Visit- Commercial 04/28/2024 INFLUENZA VACCINE (#1) 2024 02/14/2015 Insurance [employer] CHOICE POS II
--- OUTSIDE RECORDS SUMMARY | 2024-11-15 15:52 | XMS_ITS | Patient Health Record ---
Author Organization [facility] Address [address] [facility] [address] [place] [address] Care Team Providers Care Specialty Transformer Assembler Name Role Phone Gladys Keane Unavailable [phone] Reason For Referral No Information Medications Medication [...]
[2024-11-15 16:07] LABS: Hematocrit 31.0 % (37.0-47.0); Hemoglobin 9.3 g/dL (12.0-15.0); Immature Granulocyte Percent A 0.2 % (0-0.5); Immature Platelet Fraction Pct 7.7 % (0.9-11.2); Lymphocytes Absolute Auto 1.55 K/mm3 (0.9-3.2); Mean Corpuscular HGB Conc 30.0 g/dl (32-36); Mean Corpuscular Hemoglobin 22.7 pg (26-34); Mean Corpuscular Volume 75.8 fl (80-100); Nucleated Red Blood Cells Absolute Auto 0.000 K/mm3 (0.0-0.012); Nucleated Red Blood Cells Perc 0.0 % (0.0-0.2); Platelet Count Result 173 k/mm3 (150-375); Red Blood Count 4.09 M/mm3 (4.2-5.4); White Blood Count 5.0 K/mm3 (4.5-10.0)
[2024-11-15 16:51] LABS: Iron 25 ug/dL (37-170)
[2024-11-15 16:52] LABS: Alanine Aminotransferase 20 U/L (6-35); Albumin Level 3.7 g/dL (3.5-5.1); Alkaline Phosphatase 80 U/L (38-126); Anion Gap 7 mmol/L (4-12); Aspartate Amino Transferase 37 U/L (14-36); Bilirubin,Total 0.3 mg/dL (0.2-1.3); Blood Urea Nitrogen 11 mg/dL (7-17); Calcium 9.0 mg/dL (8.4-10.2); Carbon Dioxide 27 mmol/L (22-30); Chloride 104 mmol/L (98-107); Estimated Glomerular Filt Rate > 60; Glucose 101 mg/dL (65-110); Potassium 3.5 mmol/L (3.4-5.0); Sodium 138 mmol/L (137-145); Total Protein 6.8 g/dL (6.3-8.2)
[2024-11-15 17:01] LABS: Percent Iron Saturation 6 % (20-50)
[2024-11-15 17:32] LABS: Ferritin 5.13 ng/mL (11.1-264)
[2024-11-15 18:03] LABS: Vitamin B12 302.0 pg/mL (239-931)
== END 2024-11-15 15:51 | disposition home or self-care (01) ==
LOC: ANHLAB 15:51
PROVIDERS: PCP Family Medicine; Visit Provider Internal Medicine Hematology & Oncology
DX: D64.9 Anemia, unspecified (principal)
CPT/HCPCS: 36415; 80053; 82607; 82728; 82746; 83540; 83550; 83615; 83921; 84238; 85025; 85055

== ENCOUNTER 2025-01-06 06:35 | Day surgery (SDC) | payer OTHER, SELFPAY ==
[2024-12-22 10:09] VITALS: BMI 29.0
--- OUTSIDE RECORDS SUMMARY | 2025-01-06 06:45 | XMS_ITS | Patient Health Record ---
Author Organization [facility] Address [address] [facility] [address] [place] [address] Care Team Providers Care Dispatcher Maintenance Name Role Phone Gladys Keane Unavailable [phone] Reason For Referral No Information Medications Medication SIG (Take, Route, Frequency, Duration) Notes Start Date End Date Status Fexofenadine HCl 180 MG Tablet Oral Active Captopril 50 mg Tablet Oral Active Gabapentin 300 MG Capsule Oral Active amLODIPine Besylate 5 MG Tablet Oral Active Abilify 10 MG Tablet Oral Active Atorvastatin Calcium 40 MG Tablet Oral Active Sertraline HCl 100 MG Tablet Oral Active Vitamin D3 10 MCG (400 UNIT) Capsule Oral Active Metoprolol Tartrate 50 MG Tablet Oral Active Abilify 5 MG Tablet Oral Active Proventil HFA 108 (90 Base) MCG/ACT Aerosol Solution Inhalation Act jovanni SUMAtriptan Succinate 100 MG Tablet Oral Active Nuvigil 50 MG Tablet Oral Active Sertraline HCl 50 MG Tablet Oral Active Pantoprazole Sodium 40 MG Tablet Delayed Release Oral Activ e Clopidogrel Bisulfate 75 MG Tablet Oral Active Meloxicam 15 MG Tablet Oral Active Plan Of Treatment No Information
--- OUTSIDE RECORDS SUMMARY | 2025-01-06 06:45 | XMS_ITS | Clinical Summary ---
Author Organization [facility] [address] Address [address] [place] [address] Care Team Providers Care Typing Bookkeeper Name Role Phone Bacilio Cardona MD Primary Care Provider [phone] Allergies Active Allergy Reactions Criticality Noted Date [...] Possible; [facility] Multiple fractures from sports a nd martial arts Migraines Seizure disorder (HCC) GERD (gastroesophageal reflux disease) Asthma Anxiety Hypertension Hyperlipidemia Family History Medical History Relation Name Comments COPD Father Coronary artery disease Father Factor V Leiden Father Other Father Alive and well; Coronary artery disease Mother Relation Name Status Comments Father (Age 73 yo) of massive NH vs aortic rupture Mother Alive STarted w/ CAD, stents in early 60's, Etoh Social History Tobacco Use Types Packs/Day Years Used Date Smoking Tobacco: Never Smokeless Tobacco: Never Tobacco Cessation:Counseling Given: Not Answered Comments Unknown Sex and Gender Information Value Date Recorded Sex Assigned at Not on file Legal Sex Female 4: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
--- OUTSIDE RECORDS SUMMARY | 2025-01-06 06:45 | XMS_ITS | Clinical Summary ---
Author Organization [facility] Address [address] [place] [id number] Phone Care Team Providers Care Aerodynamics Engineer Name Role Phone Unavailable Primary Care Provider [...]
--- OUTSIDE RECORDS SUMMARY | 2025-01-06 06:45 | XMS_ITS | Clinical Summary ---
Author Organization [facility] Address [address] [place] [address] Care Team Providers Care Electrical Logger Name Role Phone Unavailable Primary Care Provider [...] TAKE 1 CAPSULE 80 MG ORALLY DAILY 5 Active rosuvastatin (CRESTOR) 40 mg tablet Take 40 mg by mouth daily at bedtime. Active sertraline (ZOLOFT) 100 mg tablet Take 1 Tablet by mouth 2 times daily. 5 Active MULTIVITAMIN ORAL Take by mouth daily. Active HAIR, SKIN AND NAILS, BIOTIN, ORAL Take by mouth daily. Active Active Problems No known active problems Encounters Date Type Department Care Team Description 12/15/2024 Telephone [facility] Oncology and Hematology - [place] [address] Hasmukh Tovar MD Cannot afford iron infusion 11/30/2024 External Device Data STL ABSTRACTION Provider, Abstract 11/23/2024 4:30 PM CDT Telephone Check Up [facility] Oncology and Hematology [facility] [address] [place] [address] Hasmukh Tovar MD Chronic anemia (Primary Dx) 11/23/2024 Orders Only [facility] Oncology and Hematology [facility] [address] [place] [address] Hasmukh Tovar MD 11/18/2024 Orders Only [facility] Oncology and Hematology [place] [address] [place] [address] Hasmukh Tovar MD 11/16/2024 External Device Data STL ABSTRACTION Provider, Abstract 11/16/2024 External Device Data STL ABSTRACTION Provider, Abstract 11/16/2024 External Device Data STL ABSTRACTION Provider, Abstract 11/15/2024 3:00 PM CDT Office Visit [facility] Oncology [facility] Hematology [facility] [address] [place] [address] Hasmukh Tovar MD Chronic anemia (Primary Dx) [...] Care Team (Late st Contact Info) Description 02/25/2025 12:30 PM CDT Office Visit [facility] Oncology and Hematology - [place] [address] [facility] [address] [place] [address] Hasmukh Tovar MD [address] [facility] [address] [place] [address] Health Maintenance Due Date Last [...] 10/06/2015 ZOSTER VACCINE (1 of 2) 2020 INFLUENZA VACCINE (#1) 2024 02/14/2015 Procedures Procedure Name Priority Date/Time Associated Diagnosis Comments METHYLMALONIC ACID Routine 11/15/2024 12 :53 PM CDT CHG SOLUBLE TRANSFERRIN RECEPTOR Routine 11/15/2024 9:22 AM CDT VITAMIN B12 LEVEL Routine 11/15/2024 8:4 1 AM CDT COMPREHENSIVE METABOLIC PANEL Routine 11/15/2024 8:38 AM CDT CBC WITH AUTODIFFERENTIAL Routine 2024 8:34 AM CDT from Last 3 Months Results * METHYLMALONIC ACID (11/15/2024 12:53 PM CDT) Blood us Hasmukh Tovar MD CHEMISTRY ORDERABLES Final Resu lt * CHG SOLUBLE TRANSFERRIN RECEPTOR (11/15/2024 9:22 AM CDT) us Hasmukh Tovar MD CHG - LABORATORY Final Result * VITAMIN B12 LEVEL (11/15/2024 8:41 AM CDT) Blood us Hasmukh Tovar MD CHEMISTRY ORDERABLES Final Resu lt * COMPREHENSIVE METABOLIC PANEL (11/15/2024 8:38 AM CDT) Blood us Hasmukh Tovar MD CHEMISTRY ORDERABLES Final Resu lt * CBC WITH AUTODIFFERENTIAL (11/15/2024 8:34 AM CDT) Blood us Hasmukh Tovar MD HEMATOLOGY ORDERABLES Final Res ult from Last 3 Months Insurance [employer] CHOICE POS II
--- OUTSIDE RECORDS SUMMARY | 2025-01-06 06:45 | XMS_ITS | Encounter Summary ---
Author Organization [facility] Healthcare Address [address] [place] [address] Care Team Providers Care Audit Intern Name Role Phone Bacilio Cardona MD Primary Care Provider [phone] Encounter Details Date Type Department Care Team (Late st Contact Info) Description 07/24/2017 Orders Only [facility] Health Information Management [address] [place] [address] Scanning, Provider Social History Tobacco Use Types Packs/Day Years Used Date Smoking Tobacco: Never Smokeless Tobacco: Never Comments Unknown Sex and Gender Information Value Date Recorded Sex Assigned at Not on file Legal 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
[2025-01-06 07:14] VITALS: BMI 28.8
--- NOTE | 2025-01-06 07:26 | WPDANESEPPF ---
Anes - Initial Pre Proc Eval Procedure: Operation Date: 01/06/25 08:30 Proposed Procedures p Esophagogastroduodenoscopy - Mitchell Marques MD Date/Time: 01/06/25 07:26 Surgeon: Mitchell Marques MD Pre Op Diagnosis: Acute gastric ulcer w/o hemorrhage or perforation Patient Data Age: 54 Gender: F Height: 1.65 m Weight: 78.6 kg Allergies Allergy/AdvReac Type Severity Reaction Status Date / Time diclofenac Allergy Severe Kidneys Verified 01/06/25 07:12 shut down gabapentin Allergy Severe KIDNEY Verified 01/06/25 07:12 ISSUES tomato Allergy Mild Hives Verified 01/06/25 07:12 aspirin AdvReac Intermediate Fever Verified 01/06/25 07:12 imipramine AdvReac Intermediate nightmares Verified 01/06/25 07:12 nut - unspecified AdvReac Intermediate Gastrointestinal Verified 01/06/25 07:12 Upset peanut AdvReac Intermediate Gastrointestinal Verified 01/06/25 07:12 Upset sweet potato AdvReac Intermediate Gastrointestinal Verified 01/06/25 07:12 Upset Home Medications ?Medication ?Instructions ?Recorded ?Confirmed ?Type glucose 4 gram chewable tablet 4 g PO Q15M PRN hypoglycemia #30 03/28/22 01/06/25 Rx (Dex4 Glucose) tabs albuterol sulfate 90 mcg/actuation 2 puff inhalation Q4-6H PRN 04/12/22 01/06/25 Rx aerosol inhaler (ProAir HFA) shortness of breath or wheezing #8.5 grams cholecalciferol (vitamin D3) 1,250 1,250 mcg PO WEEKLY #14 tabs 08/27/23 01/06/25 Rx mcg (50,000 unit) tablet blood-glucose sensor (Dexcom G7 #10 ea 03/18/24 12/16/24 Rx Sensor device) blood-glucose sensor (Dexcom G7 #9 ea 03/19/24 12/16/24 Rx Sensor device) glucagon 3 mg/actuation nasal See Rx Instructions .Route 07/27/24 01/06/25 Rx spray (Baqsimi) .COMPLEX PRN hypoglycemia #2 ea montelukast 10 mg tablet See Rx Instructions .Route 08/19/24 01/06/25 Rx .COMPLEX #90 tabs amitriptyline 10 mg tablet 10 mg PO QHS #90 tabs 05/01/25 09/11/25 Rx Alive Women's 50 Plus Gummy 2 gummy PO DAILY 09/23/24 01/06/25 History sertraline 100 mg tablet 200 mg PO DAILY 09/23/24 01/06/25 History ascorbate calcium (vitamin C) 500 500 mg PO DAILY 11/18/24 01/06/25 History mg tablet ferrous sulfate 27 mg iron tablet 75 mg PO DAILY 11/18/24 01/06/25 History mecobalamin (vitamin B12) 1,000 1,000 mcg PO DAILY 11/18/24 01/06/25 History mcg chewable tablet primidone 250 mg tablet 125 mg (1/2 x 250 mg) PO BID #30 11/18/24 01/06/25 Rx tabs pantoprazole 40 mg tablet,delayed 40 mg PO BID 8 weeks #180 tabs 12/06/24 01/06/25 Rx release (Protonix) aripiprazole 15 mg tablet (Abilify) 15 mg PO DAILY #90 tabs 12/16/24 01/06/25 Rx clopidogrel 75 mg tablet 75 mg PO DAILY 12/22/24 01/06/25 History rosuvastatin 40 mg tablet 40 mg PO HS 12/22/24 01/06/25 History Patient hx anesthesia problems: none Family hx anesthesia problems: none Results Review: All pre-operative results and documents have been reviewed as part of the pre-operative evaluation. 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, using plavix HTN (hypertension) Obesity (BMI 35.0-39.9 without comorbidity) Mixed hyperlipidemia Narcolepsy without cataplexy Surgical History Surgical History Gastric bypass status for obesity Family History Family History Grandparent Family history of malignant neoplasm of breast Father Family history of arthritis Mother Family history of arthritis Other Cerebrovascular accident Diabetes mellitus Family history of allergic disorder Family history of cardiovascular disease Family history of elevated blood lipids Family history of kidney disease Family history of malignant neoplasm Family history of tuberculosis Hypertension Social History Social History Smoking status: Never smoker Second hand tobacco smoke exposure: No Alcohol intake: never Substance use: never Substance use type: does not use Do You Feel Safe in your Home?: Yes Lack of Transportation: No Lack of Food: Never True Current Housing: I Have Housing Concerned About Future Housing: No Difficulty Paying Gas/Electric Bills: No Difficulty Paying for Meds: No Currently Unemployed: No Education: Associate Degree Difficulty w/ Childcare or Family Care: No Living arrangements: with family Gender identity (if verbalized by the patient): Female Spiritual care concerns: No Anes - Eval Final PreProcedure Day of Procedure 01/06/25 07:26 Heart: regular rate and rhythm Lungs: clear to auscultation Airway: Mallampati scale class II Neurological: alert and oriented Last oral intake: >/= 8 hours ASA classification: III Anesthetic plan: proceed Anesthesia type and monitoring: monitored anesthesia care Results Review: All pre-operative results and documents have been reviewed as part of the pre-operative evaluation. Informed Consent: The patient's anesthetic plan and its attendant risks and benefits were discussed with the patient/family/POA. Questions were solicited and answers provided to the satisfaction of the patient/family/POA.
[2025-01-06] MEDS: SIMETHICONE ORAL SUSPENSION 20 MG/0.3 ML 30 ML BOTTLE 1.8 ML PO (07:30)
[2025-01-06] MEDS: LACTATED RINGERS 1,000 ML 150 ML IV CONT (07:34)
--- NOTE | 2025-01-06 08:29 | PM.IMHP ---
H&P: HPI History of Present Illness Date/Time: 01/06/25 08:29 Chief Complaint: gastric bypass-gastric ulcer Narrative: in August of this year the diagnosed with a large benign ulcer in the gastric side of the Par[place] Y gastric bypass. she feels much better, she is coming now for a follow-up EGD. 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 due to asa intolerance, using plavix HTN (hypertension) Obesity (BMI 35.0-39.9 without comorbidity) Mixed hyperlipidemia Narcolepsy without cataplexy Surgical History Surgical History Gastric bypass status for obesity Family History Family History Grandparent Family history of malignant neoplasm of breast Father Family history of arthritis Mother Family history of arthritis Other Cerebrovascular accident Diabetes mellitus Family history of allergic disorder Family history of cardiovascular disease Family history of elevated blood lipids Family history of kidney disease Family history of malignant neoplasm Family history of tuberculosis Hypertension Social History Social History Smoking status: Never smoker Second hand tobacco smoke exposure: No Alcohol intake: never Substance use: never Substance use type: does not use Do You Feel Safe in your Home?: Yes Lack of Transportation: No Lack of Food: Never True Current Housing: I Have Housing Concerned About Future Housing: No Difficulty Paying Gas/Electric Bills: No Difficulty Paying for Meds: No Currently Unemployed: No Education: Associate Degree Difficulty w/ Childcare or Family Care: No Living arrangements: with family Gender identity (if verbalized by the patient): Female Spiritual care concerns: No Meds Home Medications and Allergies Home Medications ?Medication ?Instructions ?Recorded ?Confirmed ?Type glucose 4 gram chewable tablet 4 g PO Q15M PRN hypoglycemia #30 03/28/22 01/06/25 Rx (Dex4 Glucose) tabs albuterol sulfate 90 mcg/actuation 2 puff inhalation Q4-6H PRN 04/12/22 01/06/25 Rx aerosol inhaler (ProAir HFA) shortness of breath or wheezing #8.5 grams cholecalciferol (vitamin D3) 1,250 1,250 mcg PO WEEKLY #14 tabs 08/27/23 01/06/25 Rx mcg (50,000 unit) tablet blood-glucose sensor (Dexcom G7 #10 ea 03/18/24 12/16/24 Rx Sensor device) blood-glucose sensor (Dexcom G7 #9 ea 03/19/24 12/16/24 Rx Sensor device) glucagon 3 mg/actuation nasal See Rx Instructions .Route 07/27/24 01/06/25 Rx spray (Baqsimi) .COMPLEX PRN hypoglycemia #2 ea montelukast 10 mg tablet See Rx Instructions .Route 08/19/24 01/06/25 Rx .COMPLEX #90 tabs amitriptyline 10 mg tablet 10 mg PO QHS #90 tabs 08/26/24 01/06/25 Rx Alive Women's 50 Plus Gummy 2 gummy PO DAILY 09/23/24 01/06/25 History sertraline 100 mg tablet 200 mg PO DAILY 09/23/24 01/06/25 History ascorbate calcium (vitamin C) 500 500 mg PO DAILY 11/18/24 01/06/25 History mg tablet ferrous sulfate 27 mg iron tablet 75 mg PO DAILY 11/18/24 01/06/25 History mecobalamin (vitamin B12) 1,000 1,000 mcg PO DAILY 11/18/24 01/06/25 History mcg chewable tablet primidone 250 mg tablet 125 mg (1/2 x 250 mg) PO BID #30 11/18/24 01/06/25 Rx tabs pantoprazole 40 mg tablet,delayed 40 mg PO BID 8 weeks #180 tabs 12/06/24 01/06/25 Rx release (Protonix) aripiprazole 15 mg tablet (Abilify) 15 mg PO DAILY #90 tabs 12/16/24 01/06/25 Rx clopidogrel 75 mg tablet 75 mg PO DAILY 12/22/24 01/06/25 History rosuvastatin 40 mg tablet 40 mg PO HS 12/22/24 01/06/25 History Allergies Allergy/AdvReac Type Severity Reaction Status Date / Time diclofenac Allergy Severe Kidneys Verified 01/06/25 07:12 shut down gabapentin Allergy Severe KIDNEY Verified 01/06/25 07:12 ISSUES tomato Allergy Mild Hives Verified 01/06/25 07:12 aspirin AdvReac Intermediate Fever Verified 01/06/25 07:12 imipramine AdvReac Intermediate nightmares Verified 01/06/25 07:12 nut - unspecified AdvReac Intermediate Gastrointestinal Verified 01/06/25 07:12 Upset peanut AdvReac Intermediate Gastrointestinal Verified 01/06/25 07:12 Upset sweet potato AdvReac Intermediate Gastrointestinal Verified 01/06/25 07:12 Upset Exam Const: General: cooperative and healthy appearing Resp: Effort & Inspection: normal respiratory effort and able to speak in complete sentences Auscultation: clear to auscultation bilaterally Cardio: Rate: regular rate Rhythm: regular rhythm GI: Inspection: normal to inspection GI Palp: No No hepatosplenomegaly present Auscultation: normal bowel sounds Rectal Exam: deferred Skin: General skin exam: normal color Psych: Appearance: grossly normal Mental Status: mental status grossly normal Assessment and Plan Assessment and plan (1) Gastric bypass status for obesity: Code(s): Z98.84 - Bariatric surgery status Status: Acute Assessment and Plan: The patient is deemed a good candidate for the procedure. Consent signed. Will proceed. (2) Gastric ulcer: Code(s): K25.9 - Gastric ulcer, unspecified as acute or chronic, without hemorrhage or perforation Status: Acute
--- NOTE | 2025-01-06 08:34 | WPDANESPN ---
Anes - Prog Note Post-Op Date/Time: 01/06/25 08:34 Pain Score (VAS): no Patient Feedback: Patient satisfied with anesthetic care.
[2025-01-06 08:46] VITALS: BP 100/74; PULSE 86; RESP 16; O2SAT 97
[2025-01-06 08:56] VITALS: BP 139/92; PULSE 79; RESP 16; O2SAT 100
[2025-01-06 09:06] VITALS: BP 127/80; PULSE 78; RESP 18; O2SAT 100
== END 2025-01-06 09:12 | disposition home or self-care (01) ==
PROVIDERS: PCP Family Medicine; Referring Provider Internal Medicine Gastroenterology; Visit Provider Internal Medicine Gastroenterology
PROC: 0DJ08ZZ Inspection of Upper Intestinal Tract, Via Natural or Artificial Opening Endoscopic (ICD-10-PCS; CPT 43235; principal; 2025-01-06 08:30)
DX: K25.9 Gastric ulcer, unspecified as acute or chronic, without hemorrhage or perforation (principal); K29.30 Chronic superficial gastritis without bleeding; Z98.84 Bariatric surgery status
CPT/HCPCS: 43235